=== PATIENT | female | born 1955 | race Hispanic/Latino ===

== ENCOUNTER → 2018-09-26 | Outpatient (CLI) | payer OTHER, MEDICARE | END | disposition home or self-care (01) | LOC: RAH 11:18 | PROVIDERS: ATTEND Internal Medicine | DX: Z12.31 Encounter for screening mammogram for malignant neoplasm of breast (principal) | CPT/HCPCS: 77067 ==

== ENCOUNTER 2020-04-07 13:50 | Inpatient (IN) | payer OTHER, MEDICARE ==
[~2020-04-07] VITALS: Ht 175.3 cm; Wt 122.3 kg
[2020-04-07] MEDS ORDERED: ALBUTEROL INHALER 90MCG/INH IH PRN (17:45)
[2020-04-07] MEDS ORDERED: PANTOPRAZOLE SODIUM 40 MG TABLET.DR PO SCH (17:45)
[2020-04-07] MEDS ORDERED: HYDRALAZINE HCL 20 MG/ML VIAL IV PRN (18:15)
[2020-04-07] MEDS ORDERED: PANTOPRAZOLE SODIUM 40 MG TABLET.DR ONE ×2 (19:57→20:54)
[2020-04-07] MEDS ORDERED: SODIUM CHLORIDE 0.9% 250 ML IV ONE (20:02)
[2020-04-07] MEDS ORDERED: FUROSEMIDE 10 MG/ML 2ML VIAL IV SCH (20:45)
[2020-04-07] MEDS: METOPROLOL TARTRATE 50 MG TAB PO SCH (20:51)
[2020-04-07] MEDS ORDERED: CLONIDINE HCL 0.2 MG TABLET PO ONE (20:53)
[2020-04-07] MEDS: FERROUS SULFATE 325 MG TABLET.DR PO SCH (20:58)
[2020-04-07] MEDS: CLONIDINE HCL 0.2 MG TABLET PO SCH (20:58)
[2020-04-07] MEDS: ATORVASTATIN CALCIUM 10 MG TABLET PO SCH (21:00)
[2020-04-07 22:10] VITALS: BP 166/79; PULSE 88; RESP 19; TEMP 97.9
[2020-04-07] MEDS ORDERED: ALPRAZOLAM 0.25 MG TABLET PO PRN (22:45)
--- NOTE | 2020-04-07 22:47 | NUR ---
full report given to floor nurse aware pt is running some blood and needs about an hr and a half or so to finish blood transfusion paperwok given to nurse as well pt denies sob , denies sob sugar 74 patient given a sandwich and an orange juice
[2020-04-07 23:49] VITALS: BP 136/81; PULSE 84; RESP 19; TEMP 98.1
[2020-04-08 04:07] VITALS: BP 157/79; PULSE 81; RESP 19; TEMP 97.8
--- NOTE | 2020-04-08 04:49 | NUR ---
PATIENT IS REFUSING TO PROVIDE A SAMPLE OF STOOL FOR OCCULT BLOOD BECAUSE SHE CLAIMS THAT "THEY TOOK ONE IN [facility]."
[2020-04-08] MEDS: CEFTRIAXONE SODIUM 1 GM IVP SCH ×2 (06:30→17:39)
--- NOTE | 2020-04-08 07:50 | NUR ---
COVID 19 covid swab to left nare tolerated well updated isolation precautions to enhanced data warehouse developer aware of pts status charge nurse Nicol observed covid swab procedure Addendum: 04/08/20 at 0800 by ABNER VALENTINE RN RN Amended: Links added.
[2020-04-08 07:59] VITALS: BP 159/75; PULSE 86; RESP 19; TEMP 98
[2020-04-08] MEDS ORDERED: EPOETIN ALFA 10,000 UNIT/ML VIAL SQ SCH ×2 (08:45→09:30)
[2020-04-08] MEDS: CLONIDINE HCL 0.2 MG TABLET PO SCH ×2 (08:54→14:15)
[2020-04-08] MEDS: DOXYCYCLINE HYCLATE 100 MG TABLET PO SCH ×2 (08:55→21:12)
[2020-04-08] MEDS: FERROUS SULFATE 325 MG TABLET.DR PO SCH ×3 (08:55→21:12)
[2020-04-08] MEDS: FOLIC ACID 1 MG TABLET PO SCH (08:55)
[2020-04-08] MEDS: LORATADINE 10 MG TABLET PO SCH (08:57)
[2020-04-08] MEDS: FUROSEMIDE 40 MG TABLET PO SCH ×2 (08:57→21:12)
[2020-04-08] MEDS: METOPROLOL TARTRATE 50 MG TAB PO SCH ×2 (08:57→14:18)
[2020-04-08] MEDS: GABAPENTIN 100 MG CAPSULE PO SCH (08:58)
[2020-04-08] MEDS: CLOPIDOGREL BISULFATE 75 MG TAB PO SCH (08:58)
[2020-04-08] MEDS: MONTELUKAST SODIUM 10 MG TAB PO SCH (08:59)
[2020-04-08] MEDS: PANTOPRAZOLE SODIUM 40 MG TABLET.DR PO SCH (08:59)
[2020-04-08] MEDS ORDERED: MONTELUKAST SODIUM 10 MG TAB PO SCH (09:00)
[2020-04-08] MEDS ORDERED: GABAPENTIN 300 MG CAPSULE PO SCH (09:00)
[2020-04-08] MEDS ORDERED: CLONIDINE HCL 0.2 MG TABLET PO SCH (09:00)
[2020-04-08] MEDS ORDERED: GLIPIZIDE 5 MG TABLET PO SCH (09:00)
[2020-04-08] MEDS ORDERED: SERTRALINE HCL 50 MG TABLET PO SCH (09:00)
[2020-04-08 11:20] VITALS: BP 141/75; PULSE 71; RESP 19; TEMP 97.6
[2020-04-08] MEDS: INSULIN HUMULIN R 100 UNIT/ML 3ML SQ SCH ×3 (11:30→21:00)
--- NOTE | 2020-04-08 11:34 | NUR ---
DCP CM met with pt discussed dc plans. Pt is independent prior to admission, lives at home with spouse. Denies any equipments/services. Feels safe to go back home, still drives, spouse able to assist with transportation and needs as necessary. DC plan to home once stable. CM to cont to follow up. Addendum: 04/08/20 at 1136 by DEANA PETERSON LVN CM Amended: Links added.
[2020-04-08] MEDS: FLUTICASONE/VILANTEROL 1 EACH BLST.W.DEV IH SCH (14:50)
[2020-04-08] MEDS: ALBUTEROL INHALER 90MCG/INH IH SCH ×2 (14:50→18:09)
[2020-04-08] MEDS ORDERED: IRON SUCROSE COMPLEX 300 MG in SODIUM CHLORIDE 0.9% 50 ML IV SCH ×2 (15:00→15:15)
[2020-04-08] MEDS ORDERED: PHARMACY COMMUNICATION MISC SCH (15:30)
[2020-04-08] MEDS ORDERED: COMPOUND IV MISC 1 EACH IVSOLN MISC PRN (15:30)
--- NOTE | 2020-04-08 16:05 | NUR ---
PT ARRIVED TO [facility] AT 1550. PT COMPLAINING OF SOB, NAUSEA, AND FEELING TIRED. VITAL SIGNS WERE CHECKED AND BLOOD GLUCOSE WAS 63. PT IMMEDIATELY GIVEN 2 JUICES AND INSTRUCTED TO TAKE THEM. AFTER 15 BLOOD GLUCOSE WAS ASSESS AND BG WAS 79. 1 MORE JUICE WAS GIVEN TO PT. PT STATED FEELING LESS NAUSEA AND SOB. PLACED ON 1L NC.
[2020-04-08 16:54] VITALS: BP 151/75; PULSE 75; RESP 20; TEMP 97.7
[2020-04-08] MEDS: BUDESONIDE 0.5 MG/2 ML INH IH SCH (18:00)
[2020-04-08] MEDS ORDERED: CLOPIDOGREL BISULFATE 75 MG TAB PO SCH (20:00)
[2020-04-08] MEDS ORDERED: FUROSEMIDE 40 MG TABLET PO SCH (20:00)
[2020-04-08] MEDS: SERTRALINE HCL 50 MG TABLET PO SCH (21:12)
[2020-04-08] MEDS: ATORVASTATIN CALCIUM 10 MG TABLET PO SCH (21:13)
[2020-04-08 21:14] VITALS: BP 163/94; PULSE 80; RESP 20; TEMP 98.1
--- NOTE | 2020-04-08 23:50 | NUR ---
SKIN TEAR,NEW IV PTS IV FROM [facility] REMOVED D/T BEING INFILTRATED. WHEN REMOVING TAPE, PT SUSTAINED 2 SKIN TEARS ON UPPER FOREARM. #1 SKIN TEAR MEASURES AT LENGTH 1 INCH BY WIDTH 1/2 INCH. #2 SKIN TEAR MEASURES AT LENGTH 1 1/2 INCHES BY 1/4 INCH. AREA CLEANED, PAT DRY, ADHESIVE GAUZE PLACED WITH SELF ADHERING ELASTIC BANDAGE. NO CAMERA WAS AVAILABLE TO OBTAIN PICTURES, ELI LANDRUM (CHARGE) AWARE. NEW IV STARTED IN LEFT HAND WITH A 24 GAUGE, INTACT, PATENT, SALINE FLUSHED AND SALINE LOCKED.
[2020-04-09 00:39] VITALS: BP 150/70; PULSE 86; RESP 20; TEMP 98.5
[2020-04-09 04:41] VITALS: BP 148/72; PULSE 95; RESP 20; TEMP 98.2
[2020-04-09] MEDS: BUDESONIDE 0.5 MG/2 ML INH IH SCH ×2 (06:00→18:00)
[2020-04-09] MEDS: CEFTRIAXONE SODIUM 1 GM IVP SCH ×2 (06:08→17:58)
--- NOTE | 2020-04-09 07:04 | NUR ---
BS BS 75 AT 0534 DID NOT TRANSMIT TO PATIENTS RECORD. IN ERROR IT TRANSMITTED TO ROOM 422.
[2020-04-09] MEDS: INSULIN HUMULIN R 100 UNIT/ML 3ML SQ SCH ×4 (07:30→20:51)
[2020-04-09] MEDS: FLUTICASONE/VILANTEROL 1 EACH BLST.W.DEV IH SCH (09:00)
[2020-04-09 09:14] VITALS: BP 142/86; PULSE 94; RESP 20; TEMP 98.4
[2020-04-09] MEDS: FERROUS SULFATE 325 MG TABLET.DR PO SCH ×2 (09:57→14:18)
[2020-04-09] MEDS: GABAPENTIN 100 MG CAPSULE PO SCH (09:57)
[2020-04-09] MEDS: MONTELUKAST SODIUM 10 MG TAB PO SCH (09:58)
[2020-04-09] MEDS: PANTOPRAZOLE SODIUM 40 MG TABLET.DR PO SCH (09:58)
[2020-04-09] MEDS: CLONIDINE HCL 0.2 MG TABLET PO SCH ×2 (09:58→20:50)
[2020-04-09] MEDS: METOPROLOL TARTRATE 50 MG TAB PO SCH ×2 (09:59→20:50)
[2020-04-09] MEDS: FOLIC ACID 1 MG TABLET PO SCH (09:59)
[2020-04-09] MEDS: CLOPIDOGREL BISULFATE 75 MG TAB PO SCH (09:59)
[2020-04-09] MEDS: LORATADINE 10 MG TABLET PO SCH (09:59)
[2020-04-09] MEDS: DOXYCYCLINE HYCLATE 100 MG TABLET PO SCH ×2 (09:59→20:50)
[2020-04-09] MEDS: FUROSEMIDE 40 MG TABLET PO SCH ×2 (10:00→20:51)
[2020-04-09 11:12] VITALS: BP 134/86; PULSE 87; RESP 20; TEMP 98.2
[2020-04-09] MEDS: ALBUTEROL INHALER 90MCG/INH IH SCH ×2 (12:00→18:00)
[2020-04-09] MEDS ORDERED: ACETAMINOPHEN-CODEINE 300/30MG TAB PO PRN (15:45)
[2020-04-09 15:58] VITALS: BP 125/68; PULSE 71; RESP 18; TEMP 98.6
[2020-04-09] MEDS ORDERED: IRON SUCROSE COMPLEX 300 MG in SODIUM CHLORIDE 0.9% 50 ML IV SCH (16:00)
--- NOTE | 2020-04-09 17:42 | NUR ---
PT ALERT AND ORIENTED, PLAN OF CARE DISCUSSED PT OFF THE FLOOR TO CT VIA BED ESCORTED BY SENIOR SCIENCE CONSULTANT. PT HAS 2L OF OXYGEN ON, DRY INTERMITTENT NON PRODUCTIVE COUGH, PT REPORTS LOW BACK DISCOMFORT. PT ENCOURAGED TO CHANGE POSITIONS FREQUENTLY. PT VERBALIZED UNDERSTANDING OF A SECOND UNIT OF BLOOD WILL BE TRANSFUSED PER MD. POSSESSIONS WITHIN REACH, FAMILY RECENTLY UPDATED BY NURSE ON PLAN OF CARE.
[2020-04-09 20:37] VITALS: BP 136/68; PULSE 81; RESP 19; TEMP 98.3
[2020-04-09] MEDS: SERTRALINE HCL 50 MG TABLET PO SCH (20:50)
[2020-04-09] MEDS: ATORVASTATIN CALCIUM 10 MG TABLET PO SCH (20:50)
[2020-04-10] VITALS (9 sets, daily range): BP systolic 119–148; BP diastolic 55–68; PULSE 68–80; RESP 18–24; TEMP 97–98.3
--- NOTE | 2020-04-10 03:45 | NUR ---
TRANSFER PT TRANSFERRED VIA BED, MAURA BENITEZ, RECEIVED PT. PTS BELONGINGS IN HER POSSESSION. PT CONTINUES WITH 2L OXYGEN VIA NC. DENIES PAIN OR DISCOMFORT. REPORT WAS GIVEN TO MAURA BEFORE TRANSFER VIA PHONE.
--- NOTE | 2020-04-10 03:50 | NUR ---
RECEIVED PT RECEIVED FROM ELI JUÁREZ, TRANSFERRED FROM [facility]. PT IS AAOX3, AMBULATORY WITH ASSIST. NOTED TO HAVE GBW AND SOB WITH EXERTION. PCP ASSISTED PT TO RESTROOM THEN BACK TO BED. PLACED COMFORTABLY IN BED WITH HOB ELEVATED. O2 AT 2LPM VIA NC PLACED. V/S MONITORED, STABLE. ORIENTED TO ROOM AND UNIT. IN FOR MORE CARE AND MANAGEMENT. Addendum: 04/10/20 at 4147 by MAURA SOLIS RN RN Amended: Links added.
--- NOTE | 2020-04-10 04:20 | NUR ---
ORDER ASKED ELI JUÁREZ, PREVIOUS NURSE OF PT IF PRBC WAS TRANSFUSED AND RN WAS UNAWARE OF ORDER. CALLED LAB TO VERIFY IF A UNIT WAS ISSUED AND THERE IS NONE.
--- NOTE | 2020-04-10 04:40 | NUR ---
RESOURCE RESOURCE NURSE, JOSEPH, MADE AWARE OF BLOOD TRANSFUSION ORDER MISSED. UPDATED ON PT'S STATUS.
--- NOTE | 2020-04-10 05:00 | NUR ---
PIV TRIED TO RE-INSERT PIV BUT FAILED. ASKED ELI DILL, TO TRY RE-INSERTION AND INSERTED G20 TO LEFT WRIST BUT PT CLAIMS IT IS PAINFUL AND HAS TO DISCONTINUED PIV WITH CATHETER. PIV TO LEFT HAND G24 IS OCCLUDED, DISCONTINUED WITH CATHETER INTACT. CALLED ELI GARCIA TO TRY RE-INSERTION.
[2020-04-10] MEDS: CEFTRIAXONE SODIUM 1 GM IVP SCH ×2 (05:08→18:11)
--- NOTE | 2020-04-10 05:20 | NUR ---
CONSENT PT MADE AWARE OF PENDING BLOOD TRANSFUSION, VERBALIZES UNDERSTANDING. CONSENT SIGNED BY PT AND WITNESSED BY DEVELOPMENT WRITER. RAINA TOPOGRAPHICAL ENGINEER ELECTRICIAN STATION ASSISTANT FOR HOSPITALIST, PAGED VIA ANSWERING SERVICE AND INFORMED OF PRBC NOT INFUSED BUT WILL BE INFUSED AFTER PIV IS INSERTED.
[2020-04-10] MEDS: BUDESONIDE 0.5 MG/2 ML INH IH SCH ×3 (06:00→19:05)
--- NOTE | 2020-04-10 06:00 | NUR ---
PIV CAT,RN WAS ABLE TO PLACE G20 TO LEFT HAND. WILL GET ONE UNIT OF PRBC TO TRANSFUSE.
[2020-04-10] MEDS: INSULIN HUMULIN R 100 UNIT/ML 3ML SQ SCH ×4 (06:10→21:00)
--- NOTE | 2020-04-10 06:20 | NUR ---
BLOOD CHECKED PRBC UNIT WITH ELI DILL. V/S MONITORED, STABLE. STARTED TRANSFUSION. INSTRUCTED PT TO REPORT ANY UNTOWARD S AND SX. WILL MONITOR CLOSELY.
--- NOTE | 2020-04-10 06:40 | NUR ---
RE-ASSESS PT TOLERATING BLOOD TRANSFUSION WELL. V/S MONITORED, STABLE. ENDORSING TO AM SHIFT FOR MORE CARE AND MANAGEMENT.
--- NOTE | 2020-04-10 08:00 | NUR ---
Dr Lucio paged for new consult for anemia ,spoke with Dr Lucio regarding pt history no active bleeding according to patient .Dr Lucio states that she can make an appointment as outpatient in 1 week at the office (pt had a colonoscopy and EGD in [address] Medina)
[2020-04-10] MEDS: CLONIDINE HCL 0.2 MG TABLET PO SCH ×2 (08:52→22:02)
[2020-04-10] MEDS: DOXYCYCLINE HYCLATE 100 MG TABLET PO SCH ×2 (08:53→22:02)
[2020-04-10] MEDS: FERROUS SULFATE 325 MG TABLET.DR PO SCH (08:54)
[2020-04-10] MEDS: FUROSEMIDE 40 MG TABLET PO SCH ×2 (08:59→22:02)
[2020-04-10] MEDS: FOLIC ACID 1 MG TABLET PO SCH (08:59)
[2020-04-10] MEDS: FLUTICASONE/VILANTEROL 1 EACH BLST.W.DEV IH SCH (09:00)
[2020-04-10] MEDS: CHOLECALCIFEROL 10 MCG PO SCH (09:00)
[2020-04-10] MEDS: ALBUTEROL INHALER 90MCG/INH IH SCH ×4 (09:00→16:39)
[2020-04-10] MEDS: LORATADINE 10 MG TABLET PO SCH (09:00)
[2020-04-10] MEDS ORDERED: FOLIC ACID 1 MG TABLET PO SCH (09:00)
[2020-04-10] MEDS: FOLIC ACID/VITAMIN B COMP W-C 1 CAP TAB PO SCH (09:00)
[2020-04-10] MEDS ORDERED: METOPROLOL TARTRATE 50 MG TAB PO SCH (09:00)
[2020-04-10] MEDS: METOPROLOL TARTRATE 50 MG TAB PO SCH ×2 (09:00→21:00)
[2020-04-10] MEDS: GABAPENTIN 100 MG CAPSULE PO SCH (09:01)
[2020-04-10] MEDS: MONTELUKAST SODIUM 10 MG TAB PO SCH (09:01)
[2020-04-10] MEDS: PANTOPRAZOLE SODIUM 40 MG TABLET.DR PO SCH (09:01)
[2020-04-10] MEDS: VITAMIN E 400 UNIT CAPSULE PO SCH (09:01)
[2020-04-10] MEDS: IRON SUCROSE COMPLEX 300 MG in SODIUM CHLORIDE 0.9% 50 ML IV SCH (09:07)
[2020-04-10] MEDS: ATORVASTATIN CALCIUM 10 MG TABLET PO SCH (22:01)
[2020-04-10] MEDS: SERTRALINE HCL 50 MG TABLET PO SCH (22:02)
[2020-04-11] VITALS (10 sets, daily range): BP systolic 130–171; BP diastolic 62–79; PULSE 63–82; RESP 18–24; TEMP 96.1–98.5
[2020-04-11] MEDS: ALBUTEROL INHALER 90MCG/INH IH SCH ×4 (01:05→18:00)
[2020-04-11] MEDS: CEFTRIAXONE SODIUM 1 GM IVP SCH ×2 (06:01→20:51)
[2020-04-11] MEDS: INSULIN HUMULIN R 100 UNIT/ML 3ML SQ SCH ×4 (06:41→20:49)
[2020-04-11] MEDS: BUDESONIDE 0.5 MG/2 ML INH IH SCH ×2 (06:41→18:26)
[2020-04-11] MEDS: IRON SUCROSE COMPLEX 300 MG in SODIUM CHLORIDE 0.9% 50 ML IV SCH (08:00)
[2020-04-11] MEDS: FLUTICASONE/VILANTEROL 1 EACH BLST.W.DEV IH SCH (09:00)
[2020-04-11] MEDS: CHOLECALCIFEROL 10 MCG PO SCH (09:00)
[2020-04-11] MEDS: LORATADINE 10 MG TABLET PO SCH (09:08)
[2020-04-11] MEDS: FERROUS SULFATE 325 MG TABLET.DR PO SCH (09:08)
[2020-04-11] MEDS: PANTOPRAZOLE SODIUM 40 MG TABLET.DR PO SCH (09:08)
[2020-04-11] MEDS: FOLIC ACID 1 MG TABLET PO SCH (09:09)
[2020-04-11] MEDS: FUROSEMIDE 40 MG TABLET PO SCH ×2 (09:09→20:53)
[2020-04-11] MEDS: DOXYCYCLINE HYCLATE 100 MG TABLET PO SCH ×2 (09:10→20:51)
[2020-04-11] MEDS: MONTELUKAST SODIUM 10 MG TAB PO SCH (09:10)
[2020-04-11] MEDS: VITAMIN E 400 UNIT CAPSULE PO SCH (09:10)
[2020-04-11] MEDS: FOLIC ACID/VITAMIN B COMP W-C 1 CAP TAB PO SCH (09:10)
[2020-04-11] MEDS: GABAPENTIN 100 MG CAPSULE PO SCH (09:10)
[2020-04-11] MEDS: CLONIDINE HCL 0.2 MG TABLET PO SCH ×2 (09:10→20:52)
[2020-04-11] MEDS: METOPROLOL TARTRATE 50 MG TAB PO SCH (09:10)
[2020-04-11] MEDS: ACETAMINOPHEN-CODEINE 300/30MG TAB PO PRN (09:11)
[2020-04-11] MEDS: SERTRALINE HCL 50 MG TABLET PO SCH (20:51)
[2020-04-11] MEDS: ATORVASTATIN CALCIUM 10 MG TABLET PO SCH (20:53)
[2020-04-12] VITALS (10 sets, daily range): BP systolic 147–177; BP diastolic 64–77; PULSE 63–79; RESP 18–28; TEMP 97.5–98.1
[2020-04-12] MEDS: CEFTRIAXONE SODIUM 1 GM IVP SCH ×2 (04:58→20:24)
[2020-04-12] MEDS: INSULIN HUMULIN R 100 UNIT/ML 3ML SQ SCH ×4 (05:15→20:38)
--- NOTE | 2020-04-12 08:00 | NUR ---
AM SHIFT ASSESSMENT
--- NOTE | 2020-04-12 08:00 | NUR ---
NO SYMPTOMS Addendum: 04/12/20 at 1626 by RADHA MORRELL RN RN Amended: Links added.
[2020-04-12] MEDS: BUDESONIDE 0.5 MG/2 ML INH IH SCH ×2 (08:54→18:55)
[2020-04-12] MEDS: FLUTICASONE/VILANTEROL 1 EACH BLST.W.DEV IH SCH (09:00)
[2020-04-12] MEDS: CHOLECALCIFEROL 10 MCG PO SCH (09:00)
--- NOTE | 2020-04-12 09:00 | NUR ---
ASST. TO BATHROOM.
[2020-04-12] MEDS: IRON SUCROSE COMPLEX 400 MG in SODIUM CHLORIDE 0.9% 250 ML IV SCH ×2 (09:40→18:16)
[2020-04-12] MEDS: PANTOPRAZOLE SODIUM 40 MG TABLET.DR PO SCH (09:41)
[2020-04-12] MEDS: MONTELUKAST SODIUM 10 MG TAB PO SCH (09:41)
[2020-04-12] MEDS: METOPROLOL TARTRATE 50 MG TAB PO SCH (09:41)
[2020-04-12] MEDS: VITAMIN E 400 UNIT CAPSULE PO SCH (09:41)
[2020-04-12] MEDS: LORATADINE 10 MG TABLET PO SCH (09:42)
[2020-04-12] MEDS: DOXYCYCLINE HYCLATE 100 MG TABLET PO SCH ×2 (09:42→20:26)
[2020-04-12] MEDS: FOLIC ACID 1 MG TABLET PO SCH (09:42)
[2020-04-12] MEDS: FOLIC ACID/VITAMIN B COMP W-C 1 CAP TAB PO SCH (09:42)
[2020-04-12] MEDS: FERROUS SULFATE 325 MG TABLET.DR PO SCH (09:42)
[2020-04-12] MEDS: GABAPENTIN 100 MG CAPSULE PO SCH (09:42)
[2020-04-12] MEDS: CLONIDINE HCL 0.2 MG TABLET PO SCH ×2 (09:43→20:25)
[2020-04-12] MEDS: FUROSEMIDE 40 MG TABLET PO SCH ×2 (09:44→20:25)
[2020-04-12] MEDS: ENOXAPARIN SODIUM 40 MG/0.4 ML SYRINGE SQ SCH (09:45)
[2020-04-12] MEDS: ALBUTEROL INHALER 90MCG/INH IH SCH ×3 (09:46→18:16)
--- NOTE | 2020-04-12 17:00 | NUR ---
GENERALIZED EDEMA NOTED ESPECIALLY TO LOWER LEGS , ON PO LASIX AND C/O OF HAVING TO GO TO BR. TOO OFTEN.
[2020-04-12] MEDS ORDERED: SODIUM CHLORIDE 0.9% 100 ML IV ONE (18:21)
--- NOTE | 2020-04-12 19:00 | NUR ---
22G IV STARTED ON RT. HAND, ROCEPHIN INFUSING.
[2020-04-12] MEDS: ATORVASTATIN CALCIUM 10 MG TABLET PO SCH (20:25)
[2020-04-12] MEDS: SERTRALINE HCL 50 MG TABLET PO SCH (20:25)
[2020-04-13] VITALS: BP 166/74; PULSE 83; RESP 24; TEMP 97.9
[2020-04-13] MEDS: ACETAMINOPHEN-CODEINE 300/30MG TAB PO PRN (03:48)
[2020-04-13 04:00] VITALS: BP 166/74; PULSE 84; RESP 22; TEMP 98.1
--- NOTE | 2020-04-13 04:16 | NUR ---
patient refuses hydralazine iv and "would rather take lopressor and clonidine in the morning"
--- NOTE | 2020-04-13 04:35 | NUR ---
patient refuses to take rocephin iv because she claims that it orr her. she also refuses to sign the refusal to treatment form.
[2020-04-13] MEDS: CEFTRIAXONE SODIUM 1 GM IVP SCH (04:36)
[2020-04-13] MEDS: INSULIN HUMULIN R 100 UNIT/ML 3ML SQ SCH ×2 (04:37→11:30)
[2020-04-13] MEDS: ALBUTEROL INHALER 90MCG/INH IH SCH ×2 (05:56)
[2020-04-13] MEDS: BUDESONIDE 0.5 MG/2 ML INH IH SCH (06:00)
[2020-04-13 08:07] VITALS: BP 171/80; PULSE 95; RESP 20; TEMP 97.9
[2020-04-13] MEDS: CHOLECALCIFEROL 10 MCG PO SCH (09:00)
[2020-04-13] MEDS: FLUTICASONE/VILANTEROL 1 EACH BLST.W.DEV IH SCH (09:00)
[2020-04-13] MEDS: CLONIDINE HCL 0.2 MG TABLET PO SCH (10:45)
[2020-04-13] MEDS: FERROUS SULFATE 325 MG TABLET.DR PO SCH (10:45)
[2020-04-13] MEDS: DOXYCYCLINE HYCLATE 100 MG TABLET PO SCH (10:45)
[2020-04-13] MEDS: FOLIC ACID/VITAMIN B COMP W-C 1 CAP TAB PO SCH (10:45)
[2020-04-13] MEDS: VITAMIN E 400 UNIT CAPSULE PO SCH (10:46)
[2020-04-13] MEDS: GABAPENTIN 100 MG CAPSULE PO SCH (10:46)
[2020-04-13] MEDS: MONTELUKAST SODIUM 10 MG TAB PO SCH (10:46)
[2020-04-13] MEDS: PANTOPRAZOLE SODIUM 40 MG TABLET.DR PO SCH (10:46)
[2020-04-13] MEDS: ENOXAPARIN SODIUM 40 MG/0.4 ML SYRINGE SQ SCH (10:47)
[2020-04-13] MEDS: METOPROLOL TARTRATE 50 MG TAB PO SCH (10:48)
[2020-04-13] MEDS: LORATADINE 10 MG TABLET PO SCH (10:48)
[2020-04-13] MEDS: FOLIC ACID 1 MG TABLET PO SCH (10:49)
[2020-04-13] MEDS: FUROSEMIDE 40 MG TABLET PO SCH (10:49)
[2020-04-13 11:18] VITALS: BP 179/80; PULSE 89; RESP 20; TEMP 97.9
== END 2020-04-13 17:00 | disposition home or self-care (01) | DRG 683 ==
LOC: EDH 13:50 → EDHIP 17:34 → 3AH 22:15 → 4DH 04-08 16:29 → 3BH 04-10 03:44
PROVIDERS: ADMIT Internal Medicine; ATTEND Internal Medicine
PROC: 30233N1 Transfusion of Nonautologous Red Blood Cells into Peripheral Vein, Percutaneous Approach (ICD-10-PCS; principal; 2020-04-07)
DX: I12.9 Hypertensive chronic kidney disease with stage 1 through stage 4 chronic kidney disease, or unspecified chronic kidney disease (principal); M48.54XA Collapsed vertebra, not elsewhere classified, thoracic region, initial encounter for fracture; I31.3 Pericardial effusion (noninflammatory); N18.4 Chronic kidney disease, stage 4 (severe); D50.0 Iron deficiency anemia secondary to blood loss (chronic); E11.22 Type 2 diabetes mellitus with diabetic chronic kidney disease; J45.909 Unspecified asthma, uncomplicated; I25.10 Atherosclerotic heart disease of native coronary artery without angina pectoris; E66.9 Obesity, unspecified; E78.5 Hyperlipidemia, unspecified; R19.5 Other fecal abnormalities; R79.89 Other specified abnormal findings of blood chemistry; Z95.5 Presence of coronary angioplasty implant and graft; Z85.048 Personal history of other malignant neoplasm of rectum, rectosigmoid junction, and anus; Z82.5 Family history of asthma and other chronic lower respiratory diseases; Z82.49 Family history of ischemic heart disease and other diseases of the circulatory system; Z68.39 Body mass index [BMI] 39.0-39.9, adult; Z82.61 Family history of arthritis; Z79.899 Other long term (current) drug therapy; Z90.49 Acquired absence of other specified parts of digestive tract; Z03.818 Encounter for observation for suspected exposure to other biological agents ruled out

== ENCOUNTER 2020-05-25 16:47 | Observation (INO) | payer OTHER, MEDICARE ==
[~2020-05-25] VITALS: Ht 175.3 cm; Wt 95.7 kg
[~2020-05-25 16:47] MED LIST: ALPR0.255 PO; ATOR10TA69 PO; BUDE10.2 IH; CLON0.2T PO; FERR325T22 PO; FOLI10PO5 MC; FOLI1TAB61 PO; FURO40TA5 PO; GLIP5TAB11 PO; LORA10TA7 PO; METO100T14 PO; MONT10TA26 PO; SERT50TA12 PO; VITA400C73 PO; vento
[2020-05-25 17:40] LABS: BASOPHILS % (AUTO) 0.4 % (0.0-5.0); EOSINOPHILS % (AUTO) 5.3 % (0.0-8.0); LYMPHOCYTES % (AUTO) 10.1 % (21.0-51.0); MEAN CORPUSCULAR HEMOGLOBIN 30.3 pg (27.0-33.0); MEAN CORPUSCULAR HGB CONC 29.5 g/dL (32.0-36.0); MEAN CORPUSCULAR VOLUME 102.7 fL (79-99); MONOCYTES % (AUTO) 8.2 % (3.0-13.0); NEUTROPHILS % (AUTO) 75.5 % (40.0-77.0); PLATELET COUNT (AUTO) 182 K/uL (130-400); RED BLOOD CELL COUNT(AUTO) 1.88 MIL/uL (4.00-5.50); WHITE BLOOD COUNT (AUTO) 5.5 K/uL (4.8-10.8)
[2020-05-25 17:50] LABS: INR 0.88 (0.85-1.15); PROTHROMBIN TIME 9.6 SEC (9.6-11.6)
[2020-05-25 17:52] LABS: POTASSIUM 4.9 mmol/L (3.5-5.1)
[2020-05-25 17:53] LABS: HEMATOCRIT 19.3 % (36-48)
[2020-05-25 17:54] LABS: RETICULOCYTE % (AUTO) 11.07 % (0.42-2.23)
[2020-05-25 17:58] LABS: ALBUMIN 2.1 g/dL (3.5-5.0); BILIRUBIN,TOTAL 0.2 mg/dL (0.2-1.0); PARTIAL THROMBOPLASTIN TIME > 120.0 SEC (26.3-35.5); TOTAL PROTEIN, SERUM 4.9 g/dL (6.0-8.3)
[2020-05-25 18:09] LABS: % IRON SATURATION 51.8 % (22-44)
[2020-05-25 18:21] LABS: APPEARANCE,URINE Clear (CLEAR); BILIRUBIN,URINE Negative (NEGATIVE); COLOR,URINE Yellow (YELLOW); GLUCOSE, URINE (UA) Negative (NEGATIVE); KETONES,URINE Negative (NEGATIVE); LEUKOCYTE ESTERASE ,URINE Trace (NEGATIVE); NITRATE,URINE Negative (NEGATIVE); OCCULT BLOOD,URINE Moderate (NEGATIVE); PH,URINE 6.5 (5.0-8.0); PROTEIN,URINE >=1000 mg/dL (NEGATIVE); UROBILINOGEN,URINE 0.2 mg/dL (0.2-1.0)
[2020-05-25 18:35] LABS: BACTERIA,URINE Few /HPF (None Seen)
[2020-05-25 18:36] LABS: MUCUS,URINE Rare LPF (None Seen); SQUAMOUS EPITHELIAL CELL,UR Few /HPF (0-2)
[2020-05-25] MEDS ORDERED: ONDANSETRON HCL 4 MG/2 ML VIAL IVP PRN (20:00)
[2020-05-25] MEDS ORDERED: ACETAMINOPHEN 325 MG TAB PO PRN (20:00)
[2020-05-25] MEDS ORDERED: HYDRALAZINE HCL 20 MG/ML VIAL IV PRN (21:45)
[2020-05-25 23:25] VITALS: BP 183/80
--- NOTE | 2020-05-25 23:25 | NUR ---
ADMISSION NOTE: Admitted to floor via stretcher. AOX4, but looking weak. Positioned in bed according to her comfort. VS checked and recorded. Assessment done.( See CPOE flow chart for Full Physical Assessment) Per ER staff report, 1unit of PRBC already given. PIV site #22g, to left upper chest near axillary fold checked. Terminated as it was tender to touched and infiltrated. Bruising noted to surrounding area. PIV site reinsertion done to Left AC #20 gauge. Tolerated. Oriented to room and used of call light. Policies and procedures explained. Pt insisted to get to urinate in the restroom eventhough the press writer explained to her that she will be having SOB. Was assisted to go to the restroom and experienced SOB as soon as she sat in her bed. O2 at 1.5 LPM attached via NC for comfort and was positioned in bed comfortably. Bedside commode provided. Monitored and observed for any unusual changes. No apparent distress noted. Plan of care initiated. Care provided.
--- NOTE | 2020-05-26 00:15 | NUR ---
2nd unit of PRBC administered: Administered per hospital protocol. Checked with 2 RN's at bedside. Completed with out any s/s of Transfusion reaction. Tolerated well.
[2020-05-26] MEDS ORDERED: ZINC50TA71 PO (00:45)
[2020-05-26] MEDS ORDERED: CALC-20 PO (00:45)
[2020-05-26] MEDS ORDERED: VITA400C19 PO (00:45)
[2020-05-26] MEDS ORDERED: AMIN250S4 PO (01:12)
[2020-05-26] MEDS ORDERED: OMEG-75 PO (01:12)
[2020-05-26] MEDS ORDERED: LOTE55OS OU (01:12)
[2020-05-26] MEDS ORDERED: ASCO500T20 PO (01:12)
[2020-05-26] MEDS ORDERED: MAGN250T10 PO (01:12)
[2020-05-26] MEDS ORDERED: GABA300C PO (01:12)
[2020-05-26] MEDS ORDERED: CLOP75TA32 PO (01:12)
[2020-05-26] MEDS ORDERED: LINA5TAB PO (01:12)
[2020-05-26] MEDS ORDERED: ATOR10TA69 PO (01:12)
[2020-05-26 04:00] VITALS: BP 151/78
[2020-05-26] MEDS ORDERED: ZINC50TA64 PO (04:31)
[2020-05-26] MEDS ORDERED: CLON0.2T PO (04:35)
[2020-05-26] MEDS ORDERED: CLONIDINE HCL 0.2 MG TABLET PO PRN (04:45)
[2020-05-26] MEDS ORDERED: ALPRAZOLAM 0.25 MG TABLET PO PRN (04:45)
[2020-05-26 05:42] LABS: HEMATOCRIT 21.7 % (36-48); RED BLOOD CELL COUNT(AUTO) 2.17 MIL/uL (4.00-5.50); RED CELL DISTRIBUTION WIDTH 20.5 % (11.0-15.5); WHITE BLOOD COUNT (AUTO) 6.6 K/uL (4.8-10.8)
[2020-05-26 06:09] LABS: CREATININE 1.9 mg/dL (0.5-1.5); POTASSIUM 4.7 mmol/L (3.5-5.1)
[2020-05-26] MEDS: ALBUTEROL SULFATE 0.083% 2.5 MG/3 ML INH IH SCH ×3 (07:05→19:06)
[2020-05-26] MEDS: BUDESONIDE 0.5 MG/2 ML INH IH SCH ×2 (07:05→19:06)
[2020-05-26 08:05] VITALS: BP 133/60
[2020-05-26] MEDS ORDERED: SUB PER P&T FOR ASTHMA OR COPD RECOMMENDATION IH SCH (09:00)
[2020-05-26] MEDS: MAGNESIUM OXIDE 400 MG TABLET PO SCH (09:00)
[2020-05-26] MEDS ORDERED: AMINOCAPROIC ACID PO SCH (09:00)
[2020-05-26] MEDS: FERROUS SULFATE 325 MG TABLET.DR PO SCH (09:01)
[2020-05-26] MEDS: FAMOTIDINE 20MG TAB 20 MG TAB PO SCH (09:01)
[2020-05-26] MEDS: FISH OIL 1000 MG/CAP PO SCH ×2 (09:01→20:34)
[2020-05-26] MEDS: FUROSEMIDE 40 MG TABLET PO SCH ×2 (09:01→20:34)
[2020-05-26] MEDS: ASCORBIC ACID 500 MG TAB PO SCH ×2 (09:02→20:34)
[2020-05-26] MEDS: VITAMIN E 400 UNIT CAPSULE PO SCH (09:02)
[2020-05-26] MEDS: CALCIUM 600 + VITAMIN D 400 TABLET PO SCH ×2 (09:02→20:33)
[2020-05-26] MEDS: MONTELUKAST SODIUM 10 MG TAB PO SCH (09:02)
[2020-05-26] MEDS: FOLIC ACID 1 MG TABLET PO SCH (09:02)
[2020-05-26] MEDS: METOPROLOL TARTRATE 50 MG TAB PO SCH (09:02)
[2020-05-26] MEDS: LORATADINE 10 MG TABLET PO SCH (09:02)
[2020-05-26] MEDS: LINAGLIPTIN 5 MG TABLET PO SCH (09:02)
[2020-05-26] MEDS: GABAPENTIN 300 MG CAPSULE PO SCH (09:02)
[2020-05-26] MEDS: LOTEPREDNOL ETABONATE OU SCH (09:04)
[2020-05-26 11:40] VITALS: BP 153/81
--- NOTE | 2020-05-26 12:28 | NUR ---
[id number] patient signed IM Letter, I faxed IM Letter to [phone] and placed in chart under consent tab.
[2020-05-26] MEDS: ZINC SULFATE 220 CAPSULE PO SCH (12:56)
--- NOTE | 2020-05-26 14:15 | NUR ---
1 UNIT RBCS STARTED
[2020-05-26 15:52] VITALS: BP 142/68
--- NOTE | 2020-05-26 16:03 | NUR ---
SPOUSE CONTACTED FOR DISCHARGE PLANNING SPOUSE CHAD CONTACTED BY ESTELLE BENITEZ FOR CM ASSESSMENT; SPOUSE STATES PATIENT INDEPENDENT, NO DME, HOME SAFE AND ACCESSIBLE, DC MARTINA CM TO FOLLOW Addendum: 05/27/20 at 1937 by ELICEO JONES RN CM Amended: Links added.
[2020-05-26] MEDS ORDERED: SODIUM CHLORIDE 0.9% 500ML 500 ML IV ONE (16:59)
--- NOTE | 2020-05-26 17:20 | NUR ---
NO ALLERGIC REACTION AFTER 5 MIN
--- NOTE | 2020-05-26 17:35 | NUR ---
NO REACTION AFTER 15 MIN WITH RBCS
[2020-05-26 19:57] VITALS: BP 138/62
[2020-05-26] MEDS: SERTRALINE HCL 50 MG TABLET PO SCH (20:34)
[2020-05-26] MEDS: ATORVASTATIN CALCIUM 10 MG TABLET PO SCH (20:34)
[2020-05-26] MEDS ORDERED: ZOLPIDEM TARTRATE 5 MG TAB PO PRN (21:30)
[2020-05-26 22:38] LABS: HEMATOCRIT 28.5 % (36-48)
[2020-05-27] VITALS: BP 153/84
[2020-05-27] MEDS: ALBUTEROL SULFATE 0.083% 2.5 MG/3 ML INH IH SCH ×4 (00:22→18:37)
[2020-05-27 04:00] VITALS: BP 145/71
[2020-05-27 07:12] LABS: BASOPHILS % (AUTO) 0.6 % (0.0-5.0); EOSINOPHILS % (AUTO) 4.8 % (0.0-8.0); HEMATOCRIT 25.8 % (36-48); MEAN CORPUSCULAR HEMOGLOBIN 29.3 pg (27.0-33.0); MEAN CORPUSCULAR HGB CONC 29.8 g/dL (32.0-36.0); MEAN CORPUSCULAR VOLUME 98.1 fL (79-99); MONOCYTES % (AUTO) 8.7 % (3.0-13.0); NEUTROPHILS % (AUTO) 75.4 % (40.0-77.0); PLATELET COUNT (AUTO) 165 K/uL (130-400); RED BLOOD CELL COUNT(AUTO) 2.63 MIL/uL (4.00-5.50); RED CELL DISTRIBUTION WIDTH 20.2 % (11.0-15.5); WHITE BLOOD COUNT (AUTO) 6.3 K/uL (4.8-10.8)
[2020-05-27 07:28] LABS: ALBUMIN 2.2 g/dL (3.5-5.0); BILIRUBIN,TOTAL 0.3 mg/dL (0.2-1.0); CREATININE 2.1 mg/dL (0.5-1.5); MAGNESIUM 2.7 mg/dL (1.80-2.40); PHOSPHORUS 4.8 mg/dL (2.5-4.9); POTASSIUM 4.3 mmol/L (3.5-5.1)
[2020-05-27] MEDS: BUDESONIDE 0.5 MG/2 ML INH IH SCH ×2 (07:49→18:37)
[2020-05-27 08:38] VITALS: BP 176/74
[2020-05-27] MEDS: LOTEPREDNOL ETABONATE OU SCH ×2 (09:00→20:34)
[2020-05-27] MEDS: FAMOTIDINE 20MG TAB 20 MG TAB PO SCH (10:07)
[2020-05-27] MEDS: VITAMIN E 400 UNIT CAPSULE PO SCH (10:08)
[2020-05-27] MEDS: FISH OIL 1000 MG/CAP PO SCH ×2 (10:09→20:32)
[2020-05-27] MEDS: MAGNESIUM OXIDE 400 MG TABLET PO SCH (10:09)
[2020-05-27] MEDS: LINAGLIPTIN 5 MG TABLET PO SCH (10:09)
[2020-05-27] MEDS: FERROUS SULFATE 325 MG TABLET.DR PO SCH (10:10)
[2020-05-27] MEDS: LORATADINE 10 MG TABLET PO SCH (10:10)
[2020-05-27] MEDS: FOLIC ACID 1 MG TABLET PO SCH (10:10)
[2020-05-27] MEDS: MONTELUKAST SODIUM 10 MG TAB PO SCH (10:10)
[2020-05-27] MEDS: GABAPENTIN 300 MG CAPSULE PO SCH (10:10)
[2020-05-27] MEDS: CALCIUM 600 + VITAMIN D 400 TABLET PO SCH ×2 (10:10→20:31)
[2020-05-27] MEDS: ASCORBIC ACID 500 MG TAB PO SCH ×2 (10:10→20:31)
[2020-05-27] MEDS: FUROSEMIDE 40 MG TABLET PO SCH ×2 (10:10→20:32)
[2020-05-27] MEDS: METOPROLOL TARTRATE 50 MG TAB PO SCH (10:11)
[2020-05-27 11:38] VITALS: BP 168/86
[2020-05-27] MEDS: ZINC SULFATE 220 CAPSULE PO SCH (13:14)
[2020-05-27 16:22] VITALS: BP 141/74
[2020-05-27 19:50] VITALS: BP 149/74
[2020-05-27] MEDS: SERTRALINE HCL 50 MG TABLET PO SCH (20:32)
[2020-05-27] MEDS: ATORVASTATIN CALCIUM 10 MG TABLET PO SCH (20:32)
[2020-05-27] MEDS ORDERED: AMINOCAPROIC ACID 500 MG TABLET PO SCH (21:00)
--- NOTE | 2020-05-27 21:45 | NUR ---
DISCHARGE-DISCHARGE ORDERS RECEIVED, DC INSTRUCTIONS GIVEN TO PATIENT, NO NEW PRESCRIPTIONS, 20GA PIV TO LAC REMOVED. PATIENT DENIES DISCOMFORT, NO ACUTE DISTRESS NOTED. PATIENT'S SPOUSE HERE TO PICK HER UP AND PATIENT WHEELED DOWN TO ER.
== END 2020-05-27 21:50 | disposition home or self-care (01) ==
LOC: EDH 16:47 → OBSVTOIN 18:41 → INTOOBSV 18:41 → EDHIP 18:41 → UNDOADMOB 18:41 → EDHIP 21:19 → 3CH 21:19
PROVIDERS: ADMIT Internal Medicine; ATTEND Internal Medicine
DX: D75.89 Other specified diseases of blood and blood-forming organs (principal); D64.89 Other specified anemias; E11.9 Type 2 diabetes mellitus without complications; I10 Essential (primary) hypertension; Z85.038 Personal history of other malignant neoplasm of large intestine; Z79.84 Long term (current) use of oral hypoglycemic drugs; Z79.899 Other long term (current) drug therapy; Z86.73 Personal history of transient ischemic attack (TIA), and cerebral infarction without residual deficits; Z85.42 Personal history of malignant neoplasm of other parts of uterus; Z79.02 Long term (current) use of antithrombotics/antiplatelets; Z90.710 Acquired absence of both cervix and uterus; Z90.49 Acquired absence of other specified parts of digestive tract; Z87.442 Personal history of urinary calculi
CPT/HCPCS: 36415 ×3; 36430; 71045; 80048; 80053 ×2; 81001; 82270; 82550; 82607; 82728; 82948 ×8; 83735; 84100; 84484; 85014; 85018; 85025 ×2; 85027; 85610; 85730; 86850; 86900; 86901; 86923 ×3; 93005; 94640 ×11; 94664; 96374; 99285; G0378 ×7; J7040; P9016 ×3

== ENCOUNTER 2020-09-08 20:33 | Inpatient (IN) | payer OTHER, MEDICARE ==
[~2020-09-08] VITALS: Ht 175.3 cm; Wt 108.0 kg
[~2020-09-08 20:33] MED LIST changes: +AMIN250S4 PO; +ASCO500T20 PO; +CALC-1219 PO; +CLOP75TA32 PO; -FOLI1TAB61 PO; +GABA300C PO; -GLIP5TAB11 PO; +LINA5TAB PO; +LOTE55OS OU; +MAGN250T10 PO; -MONT10TA26 PO; +MONT10TA96 PO; +OMEG-75 PO; +ZINC50TA64 PO; -vento
[2020-09-08 21:05] LABS: BASOPHILS % (AUTO) 0.7 % (0.0-5.0); EOSINOPHILS % (AUTO) 8.7 % (0.0-8.0); HEMATOCRIT 22.1 % (36-48); LYMPHOCYTES % (AUTO) 15.2 % (21.0-51.0); MEAN CORPUSCULAR HEMOGLOBIN 30.1 pg (27.0-33.0); MEAN CORPUSCULAR HGB CONC 29.9 g/dL (32.0-36.0); MEAN CORPUSCULAR VOLUME 100.9 fL (79-99); MONOCYTES % (AUTO) 7.7 % (3.0-13.0); PLATELET COUNT (AUTO) 234 K/uL (130-400); RED BLOOD CELL COUNT(AUTO) 2.19 MIL/uL (4.00-5.50); WHITE BLOOD COUNT (AUTO) 7.6 K/uL (4.8-10.8)
[2020-09-08 21:20] LABS: INR 0.96 (0.85-1.15); PARTIAL THROMBOPLASTIN TIME 26.9 SEC (26.3-35.5); PROTHROMBIN TIME 10.4 SEC (9.6-11.6)
[2020-09-08 21:25] LABS: CREATININE 1.9 mg/dL (0.5-1.5); POTASSIUM 4.9 mmol/L (3.5-5.1)
[2020-09-08 21:30] LABS: ALBUMIN 1.3 g/dL (3.5-5.0); BILIRUBIN,TOTAL 0.2 mg/dL (0.2-1.0); TOTAL PROTEIN, SERUM 4.5 g/dL (6.0-8.3)
[2020-09-08] MEDS ORDERED: CLINDAMYCIN 900 MG/D5% WATER 50 ML IV ONE (22:56)
[2020-09-08] MEDS ORDERED: ACETAMINOPHEN 325 MG TAB PO PRN (23:30)
[2020-09-08] MEDS ORDERED: GLUCAGON 1MG KIT 1 MG ML IM PRN (23:30)
[2020-09-09] MEDS ORDERED: SODIUM CHLORIDE 0.9% 250 ML IV ONE (00:15)
[2020-09-09] MEDS ORDERED: CLINDAMYCIN 900 MG/D5% WATER 50 ML IV ONE ×2 (04:59→23:59)
[2020-09-09 08:40] LABS: BASOPHILS % (AUTO) 0.9 % (0.0-5.0); EOSINOPHILS % (AUTO) 10.6 % (0.0-8.0); HEMATOCRIT 32.7 % (36-48); LYMPHOCYTES % (AUTO) 18.1 % (21.0-51.0); MEAN CORPUSCULAR HEMOGLOBIN 28.9 pg (27.0-33.0); MEAN CORPUSCULAR HGB CONC 31.8 g/dL (32.0-36.0); MEAN CORPUSCULAR VOLUME 90.8 fL (79-99); MONOCYTES % (AUTO) 8.1 % (3.0-13.0); NEUTROPHILS % (AUTO) 61.8 % (40.0-77.0); PLATELET COUNT (AUTO) 220 K/uL (130-400); WHITE BLOOD COUNT (AUTO) 7.8 K/uL (4.8-10.8)
[2020-09-09 08:50] LABS: CREATININE 1.8 mg/dL (0.5-1.5); POTASSIUM 5.5 mmol/L (3.5-5.1)
[2020-09-09 10:30] LABS: % IRON SATURATION 31.5 % (22-44)
[2020-09-09] MEDS ORDERED: FAMOTIDINE 20MG TAB 20 MG TAB ONE (10:35)
[2020-09-09] MEDS ORDERED: LACTATED RINGERS 1000ML 1,000 ML IV ONE (13:50)
[2020-09-09] MEDS ORDERED: CLINDAMYCIN 600 MG/D5% WATER 50 ML IV ONE (17:26)
[2020-09-10 05:45] LABS: BASOPHILS % (AUTO) 0.9 % (0.0-5.0); EOSINOPHILS % (AUTO) 7.2 % (0.0-8.0); HEMATOCRIT 31.2 % (36-48); LYMPHOCYTES % (AUTO) 16.9 % (21.0-51.0); MEAN CORPUSCULAR HEMOGLOBIN 28.4 pg (27.0-33.0); MEAN CORPUSCULAR HGB CONC 31.1 g/dL (32.0-36.0); MEAN CORPUSCULAR VOLUME 91.5 fL (79-99); MONOCYTES % (AUTO) 8.8 % (3.0-13.0); NEUTROPHILS % (AUTO) 65.8 % (40.0-77.0); PLATELET COUNT (AUTO) 244 K/uL (130-400); RED BLOOD CELL COUNT(AUTO) 3.41 MIL/uL (4.00-5.50); RED CELL DISTRIBUTION WIDTH 19.9 % (11.0-15.5); WHITE BLOOD COUNT (AUTO) 6.9 K/uL (4.8-10.8)
[2020-09-10 06:03] LABS: CREATININE 1.8 mg/dL (0.5-1.5); MAGNESIUM 3.1 mg/dL (1.80-2.40); POTASSIUM 5.3 mmol/L (3.5-5.1)
[2020-09-10] MEDS ORDERED: FAMOTIDINE 20MG TAB 20 MG TAB ONE (07:27)
[2020-09-10] MEDS ORDERED: CLINDAMYCIN 600 MG/D5% WATER 50 ML IV ONE (07:27)
[2020-09-10] MEDS: FAMOTIDINE 20MG TAB 20 MG TAB PO SCH ×2 (09:00→21:18)
[2020-09-10] MEDS ORDERED: Vitamin B Complex/Vit C/Folic Acid PO SCH (14:45)
[2020-09-10] MEDS ORDERED: Vitamin B Complex/Vit C/Folic Acid ONE (14:55)
[2020-09-10] MEDS: CLINDAMYCIN 600 MG/D5% WATER 50 ML IV SCH (15:30)
[2020-09-10 16:00] VITALS: BP 141/79
[2020-09-10] MEDS: INSULIN HUMULIN R 100 UNIT/ML 3ML SQ SCH ×2 (16:30→21:00)
[2020-09-10] MEDS: LACTATED RINGERS 1000ML 1,000 ML IV SCH (17:37)
[2020-09-10] MEDS: Vitamin B Complex/Vit C/Folic Acid PO SCH (17:40)
[2020-09-10 19:26] LABS: APPEARANCE,URINE CLOUDY (CLEAR); BILIRUBIN,URINE NEGATIVE (NEGATIVE); COLOR,URINE YELLOW (YELLOW); GLUCOSE, URINE (UA) NEGATIVE (NEGATIVE); KETONES,URINE NEGATIVE (NEGATIVE); LEUKOCYTE ESTERASE ,URINE MODERATE (NEGATIVE); NITRATE,URINE NEGATIVE (NEGATIVE); OCCULT BLOOD,URINE LARGE (NEGATIVE); PH,URINE 5.5 (5.0-8.0); PROTEIN,URINE 100 mg/dL (NEGATIVE); UROBILINOGEN,URINE 0.2 mg/dL (0.2-1.0)
[2020-09-10 19:45] LABS: BACTERIA,URINE Moderate /HPF (None Seen)
[2020-09-10 19:46] LABS: SQUAMOUS EPITHELIAL CELL,UR 0-2 /HPF (0-2)
[2020-09-10 19:47] LABS: MUCUS,URINE Few LPF (None Seen)
[2020-09-10 19:58] VITALS: BP 136/76
[2020-09-10 23:33] VITALS: BP 132/66
[2020-09-11] MEDS: CLINDAMYCIN 600 MG/D5% WATER 50 ML IV SCH ×2 (00:16→09:30)
[2020-09-11 04:00] VITALS: BP 147/73
[2020-09-11 05:01] LABS: BASOPHILS % (AUTO) 0.6 % (0.0-5.0); EOSINOPHILS % (AUTO) 8.3 % (0.0-8.0); HEMATOCRIT 29.4 % (36-48); LYMPHOCYTES % (AUTO) 16.5 % (21.0-51.0); MEAN CORPUSCULAR HEMOGLOBIN 28.8 pg (27.0-33.0); MEAN CORPUSCULAR HGB CONC 31.6 g/dL (32.0-36.0); PLATELET COUNT (AUTO) 243 K/uL (130-400); RED BLOOD CELL COUNT(AUTO) 3.23 MIL/uL (4.00-5.50); RED CELL DISTRIBUTION WIDTH 19.5 % (11.0-15.5); WHITE BLOOD COUNT (AUTO) 6.6 K/uL (4.8-10.8)
[2020-09-11] MEDS: INSULIN HUMULIN R 100 UNIT/ML 3ML SQ SCH ×4 (05:39→21:00)
[2020-09-11 05:45] LABS: CARBON DIOXIDE 24 mmol/L (21-32); CHLORIDE 108 mmol/L (101-111); CREATININE 1.8 mg/dL (0.5-1.5); GLOMERULAR FILTR. RATE CALC 30 mL/min (>60); GLUCOSE,RANDOM 89 mg/dL (70-105); POTASSIUM 5.2 mmol/L (3.5-5.1); SODIUM SERUM 139 mmol/L (136-145); UREA NITROGEN, BLOOD 63 mg/dL (7-18)
[2020-09-11 08:06] VITALS: BP 156/83
[2020-09-11] MEDS: PANTOPRAZOLE SODIUM 40 MG TABLET.DR PO SCH ×2 (09:28→22:49)
[2020-09-11] MEDS: FAMOTIDINE 20MG TAB 20 MG TAB PO SCH (09:28)
[2020-09-11] MEDS: Vitamin B Complex/Vit C/Folic Acid PO SCH (09:28)
[2020-09-11] MEDS: HONEY 1 APPL/ML TUBE TP SCH (09:29)
[2020-09-11 11:23] VITALS: BP 158/82
[2020-09-11] MEDS ORDERED: VANCOMYCIN PROTOCOL PER PHARMACY IV SCH (12:00)
[2020-09-11] MEDS ORDERED: COMPOUND IV REFRIGERATED 1 EACH IVSOLN MISC PRN (12:30)
[2020-09-11] MEDS: CEFEPIME HCL 1 GM VIAL IVP SCH ×2 (12:58→22:49)
[2020-09-11] MEDS: LACTATED RINGERS 1000ML 1,000 ML IV SCH (12:59)
[2020-09-11] MEDS: ACETAMINOPHEN 325 MG TAB PO PRN (13:24)
[2020-09-11] MEDS: VANCOMYCIN 1.25 GM in SODIUM CHLORIDE 0.9% 250 ML IV SCH (13:25)
[2020-09-11] MEDS ORDERED: CALCIUM CHLORIDE 100 MG/ML 10 ML SYG IVP SCH (15:15)
[2020-09-11] MEDS ORDERED: DEXTROSE 50%-WATER 50 ML DISP.SYRIN IV SCH (15:15)
[2020-09-11] MEDS ORDERED: INSULIN HUMULIN R 100 UNIT/ML 3ML SQ SCH (15:15)
[2020-09-11] MEDS: ASCORBIC ACID 500 MG TAB PO SCH (16:00)
[2020-09-11] MEDS: VITAMIN B COMPLEX 1 CAPSULE PO SCH (16:00)
[2020-09-11 17:15] VITALS: BP 154/82
[2020-09-11 17:22] LABS: THYROID STIMULATING HORMONE 8.57 uIU/mL (0.36-3.74)
[2020-09-11 17:24] LABS: CREATININE 1.8 mg/dL (0.5-1.5); POTASSIUM 5.2 mmol/L (3.5-5.1)
[2020-09-11 20:42] VITALS: BP 165/84
[2020-09-11] MEDS ORDERED: PHARMACY COMMUNICATION MISC SCH (21:45)
[2020-09-11 22:47] VITALS: BP 145/79
[2020-09-11] MEDS: FERROUS SULFATE 325 MG TABLET.DR PO SCH (22:49)
[2020-09-11] MEDS: TERBINAFINE HCL 15 GM TUBE TP SCH (22:49)
[2020-09-12] MEDS: VANCOMYCIN 1.25 GM in SODIUM CHLORIDE 0.9% 250 ML IV SCH ×2 (01:12→13:16)
[2020-09-12] MEDS: HYDROCORTISONE 1% 28.35 GM CREAM TP SCH ×3 (01:14→22:17)
[2020-09-12 05:09] VITALS: BP 161/87
[2020-09-12 06:10] LABS: BASOPHILS % (AUTO) 0.7 % (0.0-5.0); EOSINOPHILS % (AUTO) 6.8 % (0.0-8.0); MEAN CORPUSCULAR HEMOGLOBIN 28.7 pg (27.0-33.0); MEAN CORPUSCULAR HGB CONC 31.3 g/dL (32.0-36.0); MONOCYTES % (AUTO) 9.3 % (3.0-13.0); NEUTROPHILS % (AUTO) 69.6 % (40.0-77.0); PLATELET COUNT (AUTO) 255 K/uL (130-400); RED BLOOD CELL COUNT(AUTO) 3.48 MIL/uL (4.00-5.50); RED CELL DISTRIBUTION WIDTH 19.2 % (11.0-15.5)
[2020-09-12] MEDS: CEFEPIME HCL 1 GM VIAL IVP SCH ×3 (06:34→22:15)
[2020-09-12] MEDS: INSULIN HUMULIN R 100 UNIT/ML 3ML SQ SCH ×5 (06:35→21:00)
[2020-09-12 06:38] LABS: ALBUMIN 1.3 g/dL (3.5-5.0); BILIRUBIN,TOTAL 0.3 mg/dL (0.2-1.0); CREATININE 1.8 mg/dL (0.5-1.5); POTASSIUM 5.5 mmol/L (3.5-5.1); THYROID STIMULATING HORMONE 9.54 uIU/mL (0.36-3.74); TOTAL PROTEIN, SERUM 4.8 g/dL (6.0-8.3)
[2020-09-12 08:00] VITALS: BP 120/71
[2020-09-12] MEDS: VITAMIN B COMPLEX 1 CAPSULE PO SCH (09:04)
[2020-09-12] MEDS: Vitamin B Complex/Vit C/Folic Acid PO SCH (09:05)
[2020-09-12] MEDS: FAMOTIDINE 20MG TAB 20 MG TAB PO SCH (09:05)
[2020-09-12] MEDS: PANTOPRAZOLE SODIUM 40 MG TABLET.DR PO SCH ×2 (09:05→22:15)
[2020-09-12] MEDS: ASCORBIC ACID 500 MG TAB PO SCH (09:05)
[2020-09-12] MEDS: FERROUS SULFATE 325 MG TABLET.DR PO SCH ×3 (09:05→22:15)
[2020-09-12] MEDS: ACETAMINOPHEN 325 MG TAB PO PRN (09:06)
[2020-09-12] MEDS ORDERED: DEXTROSE 50%-WATER 50 ML DISP.SYRIN IV SCH (10:00)
[2020-09-12 11:54] VITALS: BP 170/71
[2020-09-12] MEDS: FUROSEMIDE 10 MG/ML 2ML VIAL IV SCH (12:34)
[2020-09-12] MEDS: HONEY 1 APPL/ML TUBE TP SCH (12:35)
[2020-09-12] MEDS: TERBINAFINE HCL 15 GM TUBE TP SCH (12:36)
[2020-09-12] MEDS: HEPARIN SODIUM 5000UNIT/ML 1ML VIAL SQ SCH ×2 (12:38→22:24)
[2020-09-12] MEDS: SODIUM POLYSTYRENE SULFONATE 15 GM/60 ML ML PO SCH (12:43)
[2020-09-12] MEDS: CALCIUM CHLORIDE 100 MG/ML 10 ML SYG IVP SCH (12:44)
[2020-09-12] MEDS ORDERED: CALCIUM CHLORIDE 1,000 MG in SODIUM CHLORIDE 0.9% 100 ML IVP SCH (12:45)
[2020-09-12] MEDS: LEVOTHYROXINE 25 MCG TABLET PO SCH (13:02)
[2020-09-12 16:00] VITALS: BP 119/59
[2020-09-12 19:25] VITALS: BP 180/91
[2020-09-12 20:08] LABS: CREATININE 1.8 mg/dL (0.5-1.5)
[2020-09-13] VITALS (7 sets, daily range): BP systolic 139–167; BP diastolic 65–85
[2020-09-13] MEDS: VANCOMYCIN 1.25 GM in SODIUM CHLORIDE 0.9% 250 ML IV SCH (01:00)
[2020-09-13] MEDS: CEFEPIME HCL 1 GM VIAL IVP SCH ×3 (04:34→20:59)
[2020-09-13 04:41] LABS: BASOPHILS % (AUTO) 0.7 % (0.0-5.0); EOSINOPHILS % (AUTO) 7.6 % (0.0-8.0); LYMPHOCYTES % (AUTO) 15.4 % (21.0-51.0); MEAN CORPUSCULAR HEMOGLOBIN 28.6 pg (27.0-33.0); MEAN CORPUSCULAR HGB CONC 31.1 g/dL (32.0-36.0); MEAN CORPUSCULAR VOLUME 92.1 fL (79-99); MONOCYTES % (AUTO) 9.6 % (3.0-13.0); NEUTROPHILS % (AUTO) 66.1 % (40.0-77.0); PLATELET COUNT (AUTO) 234 K/uL (130-400); RED BLOOD CELL COUNT(AUTO) 3.04 MIL/uL (4.00-5.50); RED CELL DISTRIBUTION WIDTH 18.8 % (11.0-15.5); WHITE BLOOD COUNT (AUTO) 7.1 K/uL (4.8-10.8)
[2020-09-13 05:02] LABS: ALBUMIN 1.2 g/dL (3.5-5.0); BILIRUBIN,TOTAL 0.3 mg/dL (0.2-1.0); CREATININE 1.8 mg/dL (0.5-1.5); POTASSIUM 5.1 mmol/L (3.5-5.1); TOTAL PROTEIN, SERUM 4.6 g/dL (6.0-8.3)
[2020-09-13] MEDS: LEVOTHYROXINE 25 MCG TABLET PO SCH (07:04)
[2020-09-13] MEDS: INSULIN HUMULIN R 100 UNIT/ML 3ML SQ SCH ×5 (07:05→21:00)
[2020-09-13] MEDS: SODIUM POLYSTYRENE SULFONATE 15 GM/60 ML ML PO SCH (08:02)
[2020-09-13] MEDS: CALCIUM CHLORIDE 100 MG/ML 10 ML SYG IVP SCH (08:02)
[2020-09-13] MEDS: FUROSEMIDE 10 MG/ML 2ML VIAL IV SCH (08:02)
[2020-09-13] MEDS: HYDROCORTISONE 1% 28.35 GM CREAM TP SCH ×2 (10:40→21:00)
[2020-09-13] MEDS: TERBINAFINE HCL 15 GM TUBE TP SCH (10:40)
[2020-09-13] MEDS: VITAMIN B COMPLEX 1 CAPSULE PO SCH (10:41)
[2020-09-13] MEDS: FERROUS SULFATE 325 MG TABLET.DR PO SCH ×3 (10:41→20:59)
[2020-09-13] MEDS: HONEY 1 APPL/ML TUBE TP SCH (10:41)
[2020-09-13] MEDS: ASCORBIC ACID 500 MG TAB PO SCH (10:41)
[2020-09-13] MEDS: Vitamin B Complex/Vit C/Folic Acid PO SCH (10:41)
[2020-09-13] MEDS: FAMOTIDINE 20MG TAB 20 MG TAB PO SCH (10:41)
[2020-09-13] MEDS: PANTOPRAZOLE SODIUM 40 MG TABLET.DR PO SCH ×2 (10:41→20:59)
[2020-09-13] MEDS: HEPARIN SODIUM 5000UNIT/ML 1ML VIAL SQ SCH ×2 (10:42→21:01)
[2020-09-13] MEDS ORDERED: MORPHINE SULFATE 2 MG/ML 1ML SYG IVP ONE (13:45)
[2020-09-13] MEDS: VANCOMYCIN 1.5 GM in SODIUM CHLORIDE 0.9% 250 ML IV SCH (13:52)
[2020-09-13] MEDS: ACETAMINOPHEN-CODEINE 300/30MG TAB PO PRN (16:51)
[2020-09-14] VITALS (20 sets, daily range): BP systolic 87–161; BP diastolic 47–88
[2020-09-14] MEDS: CEFEPIME HCL 1 GM VIAL IVP SCH ×3 (05:01→21:02)
[2020-09-14 05:34] LABS: BASOPHILS % (AUTO) 0.7 % (0.0-5.0); EOSINOPHILS % (AUTO) 7.8 % (0.0-8.0); HEMATOCRIT 29.1 % (36-48); LYMPHOCYTES % (AUTO) 12.7 % (21.0-51.0); MEAN CORPUSCULAR HEMOGLOBIN 28.6 pg (27.0-33.0); MEAN CORPUSCULAR HGB CONC 30.9 g/dL (32.0-36.0); MEAN CORPUSCULAR VOLUME 92.4 fL (79-99); MONOCYTES % (AUTO) 7.6 % (3.0-13.0); NEUTROPHILS % (AUTO) 70.5 % (40.0-77.0); PLATELET COUNT (AUTO) 249 K/uL (130-400); RED BLOOD CELL COUNT(AUTO) 3.15 MIL/uL (4.00-5.50); RED CELL DISTRIBUTION WIDTH 18.7 % (11.0-15.5); WHITE BLOOD COUNT (AUTO) 6.9 K/uL (4.8-10.8)
[2020-09-14 06:02] LABS: % IRON SATURATION 44.7 % (22-44)
[2020-09-14 06:08] LABS: ALBUMIN 1.2 g/dL (3.5-5.0); BILIRUBIN,TOTAL 0.3 mg/dL (0.2-1.0); CREATININE 1.7 mg/dL (0.5-1.5); POTASSIUM 4.8 mmol/L (3.5-5.1); TOTAL PROTEIN, SERUM 4.5 g/dL (6.0-8.3)
[2020-09-14] MEDS: LEVOTHYROXINE 25 MCG TABLET PO SCH (06:15)
[2020-09-14] MEDS: INSULIN HUMULIN R 100 UNIT/ML 3ML SQ SCH ×5 (06:15→21:00)
[2020-09-14] MEDS: DEXTROSE 50%-WATER 50 ML DISP.SYRIN IV PRN (06:16)
[2020-09-14] MEDS: HYDROCORTISONE 1% 28.35 GM CREAM TP SCH ×2 (09:00→21:03)
[2020-09-14] MEDS: HONEY 1 APPL/ML TUBE TP SCH (09:00)
[2020-09-14] MEDS: TERBINAFINE HCL 15 GM TUBE TP SCH (09:00)
[2020-09-14] MEDS ORDERED: PROPOFOL 10 MG/ML 20ML VIAL IV ONE (09:24)
[2020-09-14] MEDS ORDERED: LIDOCAINE HCL 1% 20 ML VIAL ONE (09:24)
[2020-09-14] MEDS: FUROSEMIDE 10 MG/ML 2ML VIAL IV SCH (10:00)
[2020-09-14] MEDS: SODIUM POLYSTYRENE SULFONATE 15 GM/60 ML ML PO SCH (10:00)
[2020-09-14] MEDS: HEPARIN SODIUM 5000UNIT/ML 1ML VIAL SQ SCH ×2 (10:15→21:23)
[2020-09-14] MEDS: PANTOPRAZOLE SODIUM 40 MG TABLET.DR PO SCH ×2 (11:39→21:02)
[2020-09-14] MEDS: Vitamin B Complex/Vit C/Folic Acid PO SCH (11:39)
[2020-09-14] MEDS: ASCORBIC ACID 500 MG TAB PO SCH (11:39)
[2020-09-14] MEDS: FERROUS SULFATE 325 MG TABLET.DR PO SCH ×3 (11:39→21:02)
[2020-09-14] MEDS: VITAMIN B COMPLEX 1 CAPSULE PO SCH (11:39)
[2020-09-14] MEDS: FAMOTIDINE 20MG TAB 20 MG TAB PO SCH (11:39)
[2020-09-14] MEDS: VANCOMYCIN 1.5 GM in SODIUM CHLORIDE 0.9% 250 ML IV SCH (13:02)
[2020-09-14] MEDS: ACETAMINOPHEN-CODEINE 300/30MG TAB PO PRN ×2 (14:48→23:17)
[2020-09-15] VITALS (25 sets, daily range): BP systolic 109–168; BP diastolic 61–88
[2020-09-15] MEDS: CEFEPIME HCL 1 GM VIAL IVP SCH ×4 (03:25→21:36)
[2020-09-15 03:48] LABS: BASOPHILS % (AUTO) 0.6 % (0.0-5.0); EOSINOPHILS % (AUTO) 5.3 % (0.0-8.0); HEMATOCRIT 27.7 % (36-48); LYMPHOCYTES % (AUTO) 12.6 % (21.0-51.0); MEAN CORPUSCULAR HEMOGLOBIN 28.9 pg (27.0-33.0); MONOCYTES % (AUTO) 7.2 % (3.0-13.0); NEUTROPHILS % (AUTO) 73.6 % (40.0-77.0); PLATELET COUNT (AUTO) 235 K/uL (130-400); RED BLOOD CELL COUNT(AUTO) 2.98 MIL/uL (4.00-5.50); RED CELL DISTRIBUTION WIDTH 18.7 % (11.0-15.5); WHITE BLOOD COUNT (AUTO) 6.8 K/uL (4.8-10.8)
[2020-09-15 04:00] LABS: CREATININE 1.8 mg/dL (0.5-1.5); POTASSIUM 5.1 mmol/L (3.5-5.1)
[2020-09-15] MEDS: INSULIN HUMULIN R 100 UNIT/ML 3ML SQ SCH ×5 (05:38→21:00)
[2020-09-15] MEDS: LEVOTHYROXINE 25 MCG TABLET PO SCH (05:38)
[2020-09-15] MEDS: PANTOPRAZOLE SODIUM 40 MG TABLET.DR PO SCH (09:00)
[2020-09-15] MEDS: FUROSEMIDE 10 MG/ML 2ML VIAL IV SCH (10:00)
[2020-09-15] MEDS: SODIUM POLYSTYRENE SULFONATE 15 GM/60 ML ML PO SCH (10:00)
[2020-09-15] MEDS: Vitamin B Complex/Vit C/Folic Acid PO SCH (10:11)
[2020-09-15] MEDS: FAMOTIDINE 20MG TAB 20 MG TAB PO SCH (10:12)
[2020-09-15] MEDS: ASCORBIC ACID 500 MG TAB PO SCH (10:12)
[2020-09-15] MEDS: FERROUS SULFATE 325 MG TABLET.DR PO SCH ×3 (10:12→21:14)
[2020-09-15] MEDS: VITAMIN B COMPLEX 1 CAPSULE PO SCH (10:12)
[2020-09-15] MEDS: HYDROCORTISONE 1% 28.35 GM CREAM TP SCH ×2 (10:13→21:14)
[2020-09-15] MEDS: TERBINAFINE HCL 15 GM TUBE TP SCH (10:13)
[2020-09-15] MEDS: HONEY 1 APPL/ML TUBE TP SCH (10:14)
[2020-09-15] MEDS: HEPARIN SODIUM 5000UNIT/ML 1ML VIAL SQ SCH ×2 (10:22→21:25)
[2020-09-15] MEDS: DEXTROSE 50%-WATER 50 ML DISP.SYRIN IV PRN (11:26)
[2020-09-15] MEDS: VANCOMYCIN 1.5 GM in SODIUM CHLORIDE 0.9% 250 ML IV SCH (13:00)
[2020-09-15] MEDS ORDERED: SODIUM CHLORIDE 0.9% 1000ML 1,000 ML IV ONE (14:58)
[2020-09-15] MEDS ORDERED: KETAMINE HCL 100 MG/ML 5ML VIAL IJ ONE (15:12)
[2020-09-15] MEDS ORDERED: MIDAZOLAM HCL 1 MG/ML 2ML VIAL ONE (15:13)
[2020-09-15] MEDS ORDERED: DEXAMETHASONE SOD PHOSPHATE 10MG/ML 1ML VIAL ONE (15:13)
[2020-09-15] MEDS ORDERED: LIDOCAINE PF 2% 5ML ABBOJECT ONE (15:13)
[2020-09-15] MEDS ORDERED: PROPOFOL 10 MG/ML 20ML VIAL IV ONE (15:14)
[2020-09-15] MEDS ORDERED: ONDANSETRON HCL 4 MG/2 ML VIAL ONE (15:14)
[2020-09-15] MEDS ORDERED: VANCOMYCIN 1GM+NS 250ML 250 ML IV ONE (15:14)
[2020-09-15] MEDS ORDERED: FENTANYL CITRATE PF 50 MCG/1 ML 2ML VIAL ONE (15:50)
[2020-09-15] MEDS ORDERED: DEXTROSE 50%-WATER 50 ML DISP.SYRIN IV SCH (16:45)
[2020-09-15] MEDS ORDERED: MEPERIDINE-PF 25 MG/ML SYG ONE (16:49)
[2020-09-15] MEDS: ONDANSETRON HCL 4 MG/2 ML VIAL IV PRN (16:54)
[2020-09-15] MEDS: ACETAMINOPHEN-CODEINE 300/30MG TAB PO PRN (21:43)
[2020-09-15 21:49] LABS: PROTHROMBIN TIME 10.7 SEC (9.6-11.6)
[2020-09-15 21:50] LABS: PARTIAL THROMBOPLASTIN TIME 29.8 SEC (26.3-35.5)
[2020-09-15] MEDS ORDERED: MORPHINE SULFATE 2 MG/ML 1ML SYG ONE (22:11)
[2020-09-15] MEDS ORDERED: MORPHINE SULFATE 4 MG/1ML SYG IV PRN (22:15)
[2020-09-16 00:31] VITALS: BP 140/83
[2020-09-16] MEDS ORDERED: HYDROMORPHONE 1 MG/1 ML AMP IVP ONE (01:30)
[2020-09-16] MEDS ORDERED: HYDROMORPHONE HCL 0.5 MG/0.5 ML ML ONE (01:36)
[2020-09-16 04:27] VITALS: BP 142/70
[2020-09-16] MEDS: CEFEPIME HCL 1 GM VIAL IVP SCH ×3 (04:44→22:38)
[2020-09-16] MEDS: LEVOTHYROXINE 25 MCG TABLET PO SCH (06:23)
[2020-09-16] MEDS: INSULIN HUMULIN R 100 UNIT/ML 3ML SQ SCH ×5 (06:23→21:00)
[2020-09-16] MEDS: Vitamin B Complex/Vit C/Folic Acid PO SCH (08:59)
[2020-09-16] MEDS: ASCORBIC ACID 500 MG TAB PO SCH (08:59)
[2020-09-16] MEDS: FAMOTIDINE 20MG TAB 20 MG TAB PO SCH (08:59)
[2020-09-16] MEDS: VITAMIN B COMPLEX 1 CAPSULE PO SCH (08:59)
[2020-09-16] MEDS: FERROUS SULFATE 325 MG TABLET.DR PO SCH ×3 (08:59→22:38)
[2020-09-16] MEDS: HONEY 1 APPL/ML TUBE TP SCH (09:00)
[2020-09-16] MEDS: TERBINAFINE HCL 15 GM TUBE TP SCH (09:00)
[2020-09-16] MEDS: HYDROCORTISONE 1% 28.35 GM CREAM TP SCH ×2 (09:00→22:48)
[2020-09-16] MEDS: SODIUM POLYSTYRENE SULFONATE 15 GM/60 ML ML PO SCH (10:00)
[2020-09-16 10:11] VITALS: BP 52/69
[2020-09-16] MEDS: FUROSEMIDE 10 MG/ML 2ML VIAL IV SCH (11:04)
[2020-09-16] MEDS: HEPARIN SODIUM 5000UNIT/ML 1ML VIAL SQ SCH ×2 (11:11→22:45)
[2020-09-16 12:03] LABS: HEMATOCRIT 30.4 % (36-48); MEAN CORPUSCULAR HEMOGLOBIN 28.9 pg (27.0-33.0); MEAN CORPUSCULAR HGB CONC 30.6 g/dL (32.0-36.0); MEAN CORPUSCULAR VOLUME 94.4 fL (79-99); PLATELET COUNT (AUTO) 254 K/uL (130-400); RED BLOOD CELL COUNT(AUTO) 3.22 MIL/uL (4.00-5.50); RED CELL DISTRIBUTION WIDTH 18.9 % (11.0-15.5)
[2020-09-16 12:11] LABS: CREATININE 1.8 mg/dL (0.5-1.5); POTASSIUM 4.8 mmol/L (3.5-5.1)
[2020-09-16] MEDS: ACETAMINOPHEN-CODEINE 300/30MG TAB PO PRN (12:18)
[2020-09-16 12:40] VITALS: BP 187/86
[2020-09-16 17:48] VITALS: BP 168/114
[2020-09-16 20:16] VITALS: BP 116/61
[2020-09-16] MEDS: EPOETIN ALFA-EPBX (ESRD) 10,000 UNIT/ML VIAL SQ SCH (22:39)
[2020-09-16] MEDS ORDERED: PHARMACY COMMUNICATION MISC SCH (23:30)
[2020-09-17] VITALS (7 sets, daily range): BP systolic 120–158; BP diastolic 63–92
[2020-09-17] MEDS: HYDROMORPHONE HCL 0.5 MG/0.5 ML ML IVP PRN ×2 (01:18→22:40)
[2020-09-17] MEDS: CEFEPIME HCL 1 GM VIAL IVP SCH ×3 (03:59→21:41)
[2020-09-17 05:54] LABS: BASOPHILS % (AUTO) 0.8 % (0.0-5.0); EOSINOPHILS % (AUTO) 8.6 % (0.0-8.0); HEMATOCRIT 26.7 % (36-48); LYMPHOCYTES % (AUTO) 13.6 % (21.0-51.0); MEAN CORPUSCULAR HEMOGLOBIN 29.2 pg (27.0-33.0); MEAN CORPUSCULAR HGB CONC 31.1 g/dL (32.0-36.0); MONOCYTES % (AUTO) 9.9 % (3.0-13.0); NEUTROPHILS % (AUTO) 66.6 % (40.0-77.0); PLATELET COUNT (AUTO) 231 K/uL (130-400); RED BLOOD CELL COUNT(AUTO) 2.84 MIL/uL (4.00-5.50); RED CELL DISTRIBUTION WIDTH 19.1 % (11.0-15.5); WHITE BLOOD COUNT (AUTO) 7.9 K/uL (4.8-10.8)
[2020-09-17] MEDS: LEVOTHYROXINE 25 MCG TABLET PO SCH (05:58)
[2020-09-17 06:13] LABS: CREATININE 1.8 mg/dL (0.5-1.5); POTASSIUM 5.1 mmol/L (3.5-5.1)
[2020-09-17] MEDS: INSULIN HUMULIN R 100 UNIT/ML 3ML SQ SCH ×5 (07:30→21:00)
[2020-09-17] MEDS ORDERED: VANCOMYCIN 500MG+NS 100ML 100 ML IV SCH (09:00)
[2020-09-17] MEDS: FUROSEMIDE 10 MG/ML 2ML VIAL IV SCH (10:00)
[2020-09-17] MEDS: HONEY 1 APPL/ML TUBE TP SCH (10:21)
[2020-09-17] MEDS: HYDROCORTISONE 1% 28.35 GM CREAM TP SCH ×2 (10:22→21:00)
[2020-09-17] MEDS: TERBINAFINE HCL 15 GM TUBE TP SCH (10:22)
[2020-09-17] MEDS: VITAMIN B COMPLEX 1 CAPSULE PO SCH (10:22)
[2020-09-17] MEDS: FERROUS SULFATE 325 MG TABLET.DR PO SCH ×3 (10:23→21:41)
[2020-09-17] MEDS: ASCORBIC ACID 500 MG TAB PO SCH (10:23)
[2020-09-17] MEDS: Vitamin B Complex/Vit C/Folic Acid PO SCH (10:23)
[2020-09-17] MEDS: FAMOTIDINE 20MG TAB 20 MG TAB PO SCH (10:23)
[2020-09-17] MEDS: HEPARIN SODIUM 5000UNIT/ML 1ML VIAL SQ SCH ×2 (10:32→21:43)
[2020-09-17] MEDS: FLUCONAZOLE 200 MG/NS 100 ML 100 ML IV SCH (13:16)
[2020-09-18 03:55] VITALS: BP 149/91
[2020-09-18] MEDS: CEFEPIME HCL 1 GM VIAL IVP SCH ×3 (04:10→20:37)
[2020-09-18] MEDS: LEVOTHYROXINE 25 MCG TABLET PO SCH (05:17)
[2020-09-18] MEDS: HYDROMORPHONE HCL 0.5 MG/0.5 ML ML IVP PRN ×2 (05:18→21:45)
[2020-09-18 05:55] LABS: BASOPHILS % (AUTO) 0.6 % (0.0-5.0); EOSINOPHILS % (AUTO) 8.1 % (0.0-8.0); HEMATOCRIT 26.3 % (36-48); MEAN CORPUSCULAR HEMOGLOBIN 29.2 pg (27.0-33.0); MEAN CORPUSCULAR HGB CONC 31.2 g/dL (32.0-36.0); MEAN CORPUSCULAR VOLUME 93.6 fL (79-99); NEUTROPHILS % (AUTO) 69.3 % (40.0-77.0); PLATELET COUNT (AUTO) 224 K/uL (130-400); RED BLOOD CELL COUNT(AUTO) 2.81 MIL/uL (4.00-5.50); RED CELL DISTRIBUTION WIDTH 19.4 % (11.0-15.5); WHITE BLOOD COUNT (AUTO) 7.9 K/uL (4.8-10.8)
[2020-09-18] MEDS: INSULIN HUMULIN R 100 UNIT/ML 3ML SQ SCH ×5 (06:21→21:00)
[2020-09-18 06:43] LABS: CREATININE 1.9 mg/dL (0.5-1.5); POTASSIUM 4.9 mmol/L (3.5-5.1)
[2020-09-18 08:00] VITALS: BP 171/94
[2020-09-18] MEDS: ASCORBIC ACID 500 MG TAB PO SCH (08:53)
[2020-09-18] MEDS: Vitamin B Complex/Vit C/Folic Acid PO SCH (08:53)
[2020-09-18] MEDS: FAMOTIDINE 20MG TAB 20 MG TAB PO SCH (08:53)
[2020-09-18] MEDS: FERROUS SULFATE 325 MG TABLET.DR PO SCH ×3 (08:53→14:00)
[2020-09-18] MEDS: VITAMIN B COMPLEX 1 CAPSULE PO SCH (08:53)
[2020-09-18] MEDS: TERBINAFINE HCL 15 GM TUBE TP SCH (08:57)
[2020-09-18] MEDS: HYDROCORTISONE 1% 28.35 GM CREAM TP SCH ×2 (08:57→21:00)
[2020-09-18] MEDS: HONEY 1 APPL/ML TUBE TP SCH (08:58)
[2020-09-18] MEDS: ACETAMINOPHEN-CODEINE 300/30MG TAB PO PRN (08:59)
[2020-09-18] MEDS ORDERED: CLOPIDOGREL BISULFATE 75 MG TAB PO SCH (09:00)
[2020-09-18] MEDS: FUROSEMIDE 10 MG/ML 2ML VIAL IV SCH (10:00)
[2020-09-18] MEDS: FLUTICASONE/VILANTEROL 1 EACH BLST.W.DEV IH SCH ×2 (10:07→20:37)
[2020-09-18 11:00] VITALS: BP 151/68
[2020-09-18] MEDS: HEPARIN SODIUM 5000UNIT/ML 1ML VIAL SQ SCH ×2 (11:48→21:39)
[2020-09-18] MEDS: FLUCONAZOLE 200 MG/NS 100 ML 100 ML IV SCH (11:52)
[2020-09-18] MEDS: CALCIUM 600 + VITAMIN D 400 TABLET PO SCH ×2 (11:53→17:36)
[2020-09-18] MEDS: MAGNESIUM OXIDE 400 MG TABLET PO SCH (11:53)
[2020-09-18] MEDS: FOLIC ACID 1 MG TABLET PO SCH (11:54)
[2020-09-18] MEDS: METOPROLOL TARTRATE 50 MG TAB PO SCH (11:54)
[2020-09-18] MEDS ORDERED: COMPOUND IV MISC 1 EACH IVSOLN MISC PRN (12:30)
[2020-09-18] MEDS: VANCOMYCIN 500MG+NS 100 ML IV SCH (15:19)
[2020-09-18 16:00] VITALS: BP 156/80
[2020-09-18 20:00] VITALS: BP 159/98
[2020-09-18] MEDS: MONTELUKAST SODIUM 10 MG TAB PO SCH (20:37)
[2020-09-18] MEDS: FISH OIL 1000 MG/CAP PO SCH (20:37)
[2020-09-18] MEDS: ATORVASTATIN CALCIUM 10 MG TABLET PO SCH (20:37)
[2020-09-19] VITALS (7 sets, daily range): BP systolic 114–159; BP diastolic 58–78
[2020-09-19] MEDS: CEFEPIME HCL 1 GM VIAL IVP SCH ×3 (04:29→20:27)
[2020-09-19] MEDS: LEVOTHYROXINE 25 MCG TABLET PO SCH (05:47)
[2020-09-19] MEDS: INSULIN HUMULIN R 100 UNIT/ML 3ML SQ SCH ×5 (06:14→20:28)
[2020-09-19 06:16] LABS: BASOPHILS % (AUTO) 0.5 % (0.0-5.0); EOSINOPHILS % (AUTO) 6.4 % (0.0-8.0); HEMATOCRIT 25.6 % (36-48); LYMPHOCYTES % (AUTO) 15.4 % (21.0-51.0); MEAN CORPUSCULAR HEMOGLOBIN 28.9 pg (27.0-33.0); MEAN CORPUSCULAR HGB CONC 30.9 g/dL (32.0-36.0); MEAN CORPUSCULAR VOLUME 93.8 fL (79-99); MONOCYTES % (AUTO) 8.7 % (3.0-13.0); NEUTROPHILS % (AUTO) 67.8 % (40.0-77.0); PLATELET COUNT (AUTO) 212 K/uL (130-400); RED BLOOD CELL COUNT(AUTO) 2.73 MIL/uL (4.00-5.50); RED CELL DISTRIBUTION WIDTH 19.9 % (11.0-15.5); WHITE BLOOD COUNT (AUTO) 7.5 K/uL (4.8-10.8)
[2020-09-19 06:33] LABS: CREATININE 1.9 mg/dL (0.5-1.5); POTASSIUM 4.8 mmol/L (3.5-5.1)
[2020-09-19] MEDS: FLUTICASONE/VILANTEROL 1 EACH BLST.W.DEV IH SCH ×2 (09:00→20:27)
[2020-09-19] MEDS: FERROUS SULFATE 325 MG TABLET.DR PO SCH (09:38)
[2020-09-19] MEDS: Vitamin B Complex/Vit C/Folic Acid PO SCH (09:38)
[2020-09-19] MEDS: FISH OIL 1000 MG/CAP PO SCH ×2 (09:38→20:27)
[2020-09-19] MEDS: VITAMIN B COMPLEX 1 CAPSULE PO SCH (09:38)
[2020-09-19] MEDS: FOLIC ACID 1 MG TABLET PO SCH (09:38)
[2020-09-19] MEDS: FAMOTIDINE 20MG TAB 20 MG TAB PO SCH (09:38)
[2020-09-19] MEDS: MAGNESIUM OXIDE 400 MG TABLET PO SCH (09:39)
[2020-09-19] MEDS: METOPROLOL TARTRATE 50 MG TAB PO SCH (09:40)
[2020-09-19] MEDS: ASCORBIC ACID 500 MG TAB PO SCH (09:40)
[2020-09-19] MEDS: HONEY 1 APPL/ML TUBE TP SCH (09:41)
[2020-09-19] MEDS: CALCIUM 600 + VITAMIN D 400 TABLET PO SCH ×2 (09:41→17:22)
[2020-09-19] MEDS: HYDROCORTISONE 1% 28.35 GM CREAM TP SCH ×2 (09:41→20:28)
[2020-09-19] MEDS: TERBINAFINE HCL 15 GM TUBE TP SCH (09:41)
[2020-09-19] MEDS: HEPARIN SODIUM 5000UNIT/ML 1ML VIAL SQ SCH ×2 (09:46→20:42)
[2020-09-19] MEDS: FUROSEMIDE 10 MG/ML 2ML VIAL IV SCH (10:00)
[2020-09-19] MEDS: FLUCONAZOLE 200 MG/NS 100 ML 100 ML IV SCH (12:15)
[2020-09-19] MEDS: VANCOMYCIN 500MG+NS 100 ML IV SCH (13:45)
[2020-09-19] MEDS: ATORVASTATIN CALCIUM 10 MG TABLET PO SCH (20:27)
[2020-09-19] MEDS: MONTELUKAST SODIUM 10 MG TAB PO SCH (20:27)
[2020-09-19] MEDS: ONDANSETRON HCL 4 MG/2 ML VIAL IV PRN (20:46)
[2020-09-20] VITALS (29 sets, daily range): BP systolic 104–148; BP diastolic 56–78
[2020-09-20] MEDS: LEVOTHYROXINE 25 MCG TABLET PO SCH (04:01)
[2020-09-20] MEDS: CEFEPIME HCL 1 GM VIAL IVP SCH ×3 (04:01→19:51)
[2020-09-20] MEDS: METOPROLOL TARTRATE 50 MG TAB PO SCH (04:01)
[2020-09-20] MEDS: INSULIN HUMULIN R 100 UNIT/ML 3ML SQ SCH ×5 (05:48→19:52)
[2020-09-20 06:01] LABS: BASOPHILS % (AUTO) 0.4 % (0.0-5.0); EOSINOPHILS % (AUTO) 4.5 % (0.0-8.0); HEMATOCRIT 25.5 % (36-48); LYMPHOCYTES % (AUTO) 13.1 % (21.0-51.0); MEAN CORPUSCULAR HEMOGLOBIN 29.3 pg (27.0-33.0); MEAN CORPUSCULAR VOLUME 94.4 fL (79-99); MONOCYTES % (AUTO) 8.7 % (3.0-13.0); NEUTROPHILS % (AUTO) 72.3 % (40.0-77.0); PLATELET COUNT (AUTO) 226 K/uL (130-400); RED CELL DISTRIBUTION WIDTH 19.9 % (11.0-15.5); WHITE BLOOD COUNT (AUTO) 9.1 K/uL (4.8-10.8)
[2020-09-20 06:21] LABS: ALBUMIN 0.9 g/dL (3.5-5.0); BILIRUBIN,TOTAL 0.2 mg/dL (0.2-1.0); CREATININE 1.9 mg/dL (0.5-1.5); POTASSIUM 5.1 mmol/L (3.5-5.1)
[2020-09-20] MEDS: CALCIUM 600 + VITAMIN D 400 TABLET PO SCH ×2 (08:00→16:12)
[2020-09-20] MEDS: HONEY 1 APPL/ML TUBE TP SCH (09:00)
[2020-09-20] MEDS: FLUTICASONE/VILANTEROL 1 EACH BLST.W.DEV IH SCH ×2 (09:00→19:51)
[2020-09-20] MEDS: TERBINAFINE HCL 15 GM TUBE TP SCH (09:00)
[2020-09-20] MEDS: FOLIC ACID 1 MG TABLET PO SCH (09:00)
[2020-09-20] MEDS: HYDROCORTISONE 1% 28.35 GM CREAM TP SCH ×2 (09:00→19:52)
[2020-09-20] MEDS: VITAMIN B COMPLEX 1 CAPSULE PO SCH (09:00)
[2020-09-20] MEDS: MAGNESIUM OXIDE 400 MG TABLET PO SCH (09:00)
[2020-09-20] MEDS: FERROUS SULFATE 325 MG TABLET.DR PO SCH (09:00)
[2020-09-20] MEDS: FISH OIL 1000 MG/CAP PO SCH ×2 (09:00→19:51)
[2020-09-20] MEDS: ASCORBIC ACID 500 MG TAB PO SCH (09:00)
[2020-09-20] MEDS: Vitamin B Complex/Vit C/Folic Acid PO SCH (09:00)
[2020-09-20] MEDS: FAMOTIDINE 20MG TAB 20 MG TAB PO SCH (09:00)
[2020-09-20] MEDS: HYDROMORPHONE HCL 0.5 MG/0.5 ML ML IVP PRN (09:07)
[2020-09-20] MEDS: HEPARIN SODIUM 5000UNIT/ML 1ML VIAL SQ SCH ×2 (10:15→20:01)
[2020-09-20] MEDS ORDERED: MIDAZOLAM HCL 1 MG/ML 2ML VIAL ONE (10:52)
[2020-09-20] MEDS ORDERED: PROPOFOL 10 MG/ML 20ML VIAL IV ONE ×2 (10:52→12:59)
[2020-09-20] MEDS ORDERED: DEXAMETHASONE SOD PHOSPHATE 10MG/ML 1ML VIAL ONE (10:52)
[2020-09-20] MEDS ORDERED: SUCCINYLCHOLINE 200MG/10ML SYR ONE (10:52)
[2020-09-20] MEDS ORDERED: LIDOCAINE PF 2% 5ML ABBOJECT ONE (10:52)
[2020-09-20] MEDS ORDERED: ROCURONIUM 10MG/1ML SYR 10 MG/ML ML ONE (10:53)
[2020-09-20] MEDS ORDERED: GLYCOPYRROLATE 1 MG/5 ML SYRINGE ONE (10:53)
[2020-09-20] MEDS ORDERED: FENTANYL CITRATE PF 50 MCG/1 ML 2ML VIAL ONE (10:53)
[2020-09-20] MEDS ORDERED: ONDANSETRON HCL 4 MG/2 ML VIAL ONE (10:53)
[2020-09-20] MEDS ORDERED: NEOSTIGMINE 5MG/5ML SYR IV ONE (10:53)
[2020-09-20] MEDS ORDERED: KETAMINE 50MG/ML SYRINGE 50 MG/ML DISP.SYRIN IV ONE ×2 (11:00→13:05)
[2020-09-20] MEDS ORDERED: SODIUM CHLORIDE 0.9% 1000ML 1,000 ML IV ONE (11:09)
[2020-09-20] MEDS ORDERED: EPINEPHRINE 1 MG/ML AMPULE ONE (11:24)
[2020-09-20] MEDS ORDERED: DEXTROSE 50%-WATER 50 ML DISP.SYRIN IV SCH (11:45)
[2020-09-20] MEDS: FLUCONAZOLE 200 MG/NS 100 ML 100 ML IV SCH ×2 (12:15→13:20)
[2020-09-20 12:18] LABS: INR 1.17 (0.85-1.15); PROTHROMBIN TIME 12.3 SEC (9.6-11.6)
[2020-09-20 12:19] LABS: PARTIAL THROMBOPLASTIN TIME 30.2 SEC (26.3-35.5)
[2020-09-20] MEDS ORDERED: NEOMY SULF/POLYMYXIN B SULFATE 1 ML AMPUL IR ONE (12:39)
[2020-09-20] MEDS ORDERED: EPHEDRINE SULFATE 50 MG/ML AMPULE ONE (13:14)
[2020-09-20] MEDS ORDERED: NALOXONE HCL 0.4 MG/1 ML ML ONE (13:28)
[2020-09-20] MEDS: ATORVASTATIN CALCIUM 10 MG TABLET PO SCH (19:51)
[2020-09-20] MEDS: MONTELUKAST SODIUM 10 MG TAB PO SCH (19:51)
[2020-09-20] MEDS: ACETAMINOPHEN-CODEINE 300/30MG TAB PO PRN (20:08)
[2020-09-21] MEDS: ACETAMINOPHEN-CODEINE 300/30MG TAB PO PRN ×2 (00:37→21:18)
[2020-09-21] MEDS: CEFEPIME HCL 1 GM VIAL IVP SCH (03:48)
[2020-09-21 03:54] VITALS: BP 133/66
[2020-09-21] MEDS: LEVOTHYROXINE 25 MCG TABLET PO SCH (05:30)
[2020-09-21] MEDS: INSULIN HUMULIN R 100 UNIT/ML 3ML SQ SCH ×5 (06:06→21:00)
[2020-09-21 06:48] LABS: BASOPHILS % (AUTO) 0.6 % (0.0-5.0); EOSINOPHILS % (AUTO) 6.6 % (0.0-8.0); HEMATOCRIT 25.6 % (36-48); LYMPHOCYTES % (AUTO) 11.1 % (21.0-51.0); MEAN CORPUSCULAR HGB CONC 30.5 g/dL (32.0-36.0); MEAN CORPUSCULAR VOLUME 95.2 fL (79-99); MONOCYTES % (AUTO) 8.2 % (3.0-13.0); NEUTROPHILS % (AUTO) 72.2 % (40.0-77.0); PLATELET COUNT (AUTO) 194 K/uL (130-400); RED BLOOD CELL COUNT(AUTO) 2.69 MIL/uL (4.00-5.50); RED CELL DISTRIBUTION WIDTH 20.5 % (11.0-15.5); WHITE BLOOD COUNT (AUTO) 9.6 K/uL (4.8-10.8)
[2020-09-21 06:57] LABS: CREATININE 2.1 mg/dL (0.5-1.5); POTASSIUM 5.2 mmol/L (3.5-5.1)
[2020-09-21 08:00] VITALS: BP 115/59
[2020-09-21] MEDS: FLUTICASONE/VILANTEROL 1 EACH BLST.W.DEV IH SCH ×2 (09:00→21:11)
[2020-09-21] MEDS: HONEY 1 APPL/ML TUBE TP SCH (09:00)
[2020-09-21] MEDS: FERROUS SULFATE 325 MG TABLET.DR PO SCH (09:20)
[2020-09-21] MEDS: VITAMIN B COMPLEX 1 CAPSULE PO SCH (09:20)
[2020-09-21] MEDS: ASCORBIC ACID 500 MG TAB PO SCH (09:20)
[2020-09-21] MEDS: FISH OIL 1000 MG/CAP PO SCH ×2 (09:21→21:11)
[2020-09-21] MEDS: FOLIC ACID 1 MG TABLET PO SCH (09:21)
[2020-09-21] MEDS: METOPROLOL TARTRATE 50 MG TAB PO SCH (09:21)
[2020-09-21] MEDS: MAGNESIUM OXIDE 400 MG TABLET PO SCH (09:21)
[2020-09-21] MEDS: Vitamin B Complex/Vit C/Folic Acid PO SCH (09:21)
[2020-09-21] MEDS: FAMOTIDINE 20MG TAB 20 MG TAB PO SCH (09:21)
[2020-09-21] MEDS: CALCIUM 600 + VITAMIN D 400 TABLET PO SCH ×2 (09:29→17:00)
[2020-09-21] MEDS: TERBINAFINE HCL 15 GM TUBE TP SCH (09:30)
[2020-09-21] MEDS: HYDROCORTISONE 1% 28.35 GM CREAM TP SCH ×2 (09:31→21:28)
[2020-09-21] MEDS: HEPARIN SODIUM 5000UNIT/ML 1ML VIAL SQ SCH ×2 (10:43→21:17)
[2020-09-21 11:55] VITALS: BP 131/69
[2020-09-21] MEDS: CEFTAZIDIME PENTAHYDRATE 1 GM/VIAL IVP SCH ×2 (12:37→23:46)
[2020-09-21] MEDS: FLUCONAZOLE 200 MG/NS 100 ML 100 ML IV SCH (12:37)
[2020-09-21 16:00] VITALS: BP 188/88
[2020-09-21 16:43] LABS: POTASSIUM 5.1 mmol/L (3.5-5.1)
[2020-09-21] MEDS ORDERED: ALTEPLASE 2 MG/VIAL IVCATH SCH (18:00)
[2020-09-21 19:30] VITALS: BP 134/67
[2020-09-21] MEDS: LINEZOLID 600 MG/ISO-OSM 300 ML IV SCH (21:11)
[2020-09-21] MEDS: MONTELUKAST SODIUM 10 MG TAB PO SCH (21:11)
[2020-09-21] MEDS: ATORVASTATIN CALCIUM 10 MG TABLET PO SCH (21:11)
[2020-09-21 23:20] VITALS: BP 129/64
[2020-09-22] MEDS: ACETAMINOPHEN-CODEINE 300/30MG TAB PO PRN ×4 (01:54→23:00)
[2020-09-22 04:00] VITALS: BP 148/86
[2020-09-22] MEDS: LEVOTHYROXINE 25 MCG TABLET PO SCH (05:51)
[2020-09-22 06:20] LABS: HEMATOCRIT 24.4 % (36-48); MEAN CORPUSCULAR HEMOGLOBIN 29.1 pg (27.0-33.0); MEAN CORPUSCULAR HGB CONC 30.7 g/dL (32.0-36.0); MEAN CORPUSCULAR VOLUME 94.6 fL (79-99); PLATELET COUNT (AUTO) 172 K/uL (130-400); RED BLOOD CELL COUNT(AUTO) 2.58 MIL/uL (4.00-5.50); RED CELL DISTRIBUTION WIDTH 20.4 % (11.0-15.5); WHITE BLOOD COUNT (AUTO) 8.5 K/uL (4.8-10.8)
[2020-09-22] MEDS: INSULIN HUMULIN R 100 UNIT/ML 3ML SQ SCH ×4 (06:42→21:00)
[2020-09-22 06:44] LABS: MAGNESIUM 2.9 mg/dL (1.80-2.40); PHOSPHORUS 3.2 mg/dL (2.5-4.9); POTASSIUM 5.4 mmol/L (3.5-5.1)
[2020-09-22 06:47] LABS: PROTEIN,URINE RANDOM 274.4 mg/dL (0-11.9)
[2020-09-22 06:59] LABS: EOSINOPHILS % (MANUAL) 6 % (1-6); LYMPHOCYTES % (MANUAL) 17 % (22-44); MAN.DIFF COMMENT-IMPRESSION MANUAL DIFFERENTIAL; MONOCYTES % (MANUAL) 6 % (2-9); PLATELET MORPHOLOGY COMMENT ADEQUATE; SEGMENTED NEUTROPHILS % 71 % (40-70)
[2020-09-22 07:30] VITALS: BP 136/62
[2020-09-22] MEDS: LINEZOLID 600 MG/ISO-OSM 300 ML IV SCH ×2 (10:13→20:57)
[2020-09-22] MEDS: SODIUM POLYSTYRENE SULFONATE 15 GM/60 ML ML PO SCH (10:14)
[2020-09-22] MEDS: FAMOTIDINE 20MG TAB 20 MG TAB PO SCH (10:14)
[2020-09-22] MEDS: FOLIC ACID 1 MG TABLET PO SCH (10:14)
[2020-09-22] MEDS: FISH OIL 1000 MG/CAP PO SCH ×2 (10:14→21:02)
[2020-09-22] MEDS: MAGNESIUM OXIDE 400 MG TABLET PO SCH (10:15)
[2020-09-22] MEDS: METOPROLOL TARTRATE 50 MG TAB PO SCH (10:15)
[2020-09-22] MEDS: CALCIUM 600 + VITAMIN D 400 TABLET PO SCH ×2 (10:15→17:39)
[2020-09-22] MEDS: Vitamin B Complex/Vit C/Folic Acid PO SCH (10:17)
[2020-09-22] MEDS: VITAMIN B COMPLEX 1 CAPSULE PO SCH (10:17)
[2020-09-22] MEDS: FERROUS SULFATE 325 MG TABLET.DR PO SCH (10:17)
[2020-09-22] MEDS: ASCORBIC ACID 500 MG TAB PO SCH (10:17)
[2020-09-22] MEDS: HYDROCORTISONE 1% 28.35 GM CREAM TP SCH ×2 (10:17→21:04)
[2020-09-22] MEDS: HONEY 1 APPL/ML TUBE TP SCH (10:18)
[2020-09-22] MEDS: TERBINAFINE HCL 15 GM TUBE TP SCH (10:18)
[2020-09-22] MEDS: HEPARIN SODIUM 5000UNIT/ML 1ML VIAL SQ SCH ×2 (10:20→21:11)
[2020-09-22] MEDS: FLUTICASONE/VILANTEROL 1 EACH BLST.W.DEV IH SCH ×2 (10:27→21:09)
[2020-09-22 11:00] VITALS: BP 173/85
[2020-09-22] MEDS: CEFTAZIDIME PENTAHYDRATE 1 GM/VIAL IVP SCH ×2 (11:54→23:19)
[2020-09-22] MEDS: FLUCONAZOLE 200 MG/NS 100 ML 100 ML IV SCH (11:54)
[2020-09-22] MEDS ORDERED: LABETALOL HCL 5 MG/ML 20ML VIAL IV PRN (16:45)
[2020-09-22] MEDS ORDERED: AMLODIPINE BESYLATE 5 MG TAB PO SCH (16:45)
[2020-09-22 17:35] VITALS: BP 153/71
[2020-09-22 19:00] VITALS: BP 155/69
[2020-09-22] MEDS ORDERED: CLOPIDOGREL BISULFATE 75 MG TAB PO SCH (21:00)
[2020-09-22] MEDS: ATORVASTATIN CALCIUM 10 MG TABLET PO SCH (21:02)
[2020-09-22] MEDS: MONTELUKAST SODIUM 10 MG TAB PO SCH (21:03)
[2020-09-23] VITALS (7 sets, daily range): BP systolic 116–151; BP diastolic 59–70
[2020-09-23] MEDS: LEVOTHYROXINE 25 MCG TABLET PO SCH (06:34)
[2020-09-23] MEDS: ACETAMINOPHEN-CODEINE 300/30MG TAB PO PRN (06:38)
[2020-09-23] MEDS: INSULIN HUMULIN R 100 UNIT/ML 3ML SQ SCH ×4 (06:38→20:55)
[2020-09-23 06:44] LABS: BASOPHILS % (AUTO) 0.6 % (0.0-5.0); EOSINOPHILS % (AUTO) 5.1 % (0.0-8.0); HEMATOCRIT 28.1 % (36-48); LYMPHOCYTES % (AUTO) 11.2 % (21.0-51.0); MEAN CORPUSCULAR HEMOGLOBIN 29.4 pg (27.0-33.0); MEAN CORPUSCULAR VOLUME 94.9 fL (79-99); MONOCYTES % (AUTO) 6.6 % (3.0-13.0); NEUTROPHILS % (AUTO) 75.3 % (40.0-77.0); NUCLEATED RED BLOOD CELLS 0.2 % (0.0-0.19); PLATELET COUNT (AUTO) 218 K/uL (130-400); RED BLOOD CELL COUNT(AUTO) 2.96 MIL/uL (4.00-5.50); RED CELL DISTRIBUTION WIDTH 21.1 % (11.0-15.5); WHITE BLOOD COUNT (AUTO) 8.8 K/uL (4.8-10.8)
[2020-09-23 07:25] LABS: CREATININE 2.1 mg/dL (0.5-1.5); MAGNESIUM 2.7 mg/dL (1.80-2.40); POTASSIUM 4.9 mmol/L (3.5-5.1)
[2020-09-23] MEDS: CALCIUM 600 + VITAMIN D 400 TABLET PO SCH ×2 (08:00→17:12)
[2020-09-23] MEDS: SODIUM POLYSTYRENE SULFONATE 15 GM/60 ML ML PO SCH (08:15)
[2020-09-23] MEDS: FLUTICASONE/VILANTEROL 1 EACH BLST.W.DEV IH SCH ×2 (09:00→21:12)
[2020-09-23] MEDS: TERBINAFINE HCL 15 GM TUBE TP SCH (09:00)
[2020-09-23] MEDS: HYDROCORTISONE 1% 28.35 GM CREAM TP SCH ×2 (09:00→21:12)
[2020-09-23] MEDS: HEPARIN SODIUM 5000UNIT/ML 1ML VIAL SQ SCH ×2 (10:15→23:07)
[2020-09-23] MEDS: LINEZOLID 600 MG/ISO-OSM 300 ML IV SCH ×2 (10:35→21:11)
[2020-09-23] MEDS: FERROUS SULFATE 325 MG TABLET.DR PO SCH (10:45)
[2020-09-23] MEDS: VITAMIN B COMPLEX 1 CAPSULE PO SCH (10:45)
[2020-09-23] MEDS: FISH OIL 1000 MG/CAP PO SCH ×2 (10:46→21:11)
[2020-09-23] MEDS: FOLIC ACID 1 MG TABLET PO SCH (10:47)
[2020-09-23] MEDS: METOPROLOL TARTRATE 50 MG TAB PO SCH (10:48)
[2020-09-23] MEDS: MAGNESIUM OXIDE 400 MG TABLET PO SCH (10:48)
[2020-09-23] MEDS: FAMOTIDINE 20MG TAB 20 MG TAB PO SCH (10:49)
[2020-09-23] MEDS: Vitamin B Complex/Vit C/Folic Acid PO SCH (10:49)
[2020-09-23] MEDS: ASCORBIC ACID 500 MG TAB PO SCH (10:50)
[2020-09-23] MEDS: HONEY 1 APPL/ML TUBE TP SCH (12:00)
[2020-09-23] MEDS: CEFTAZIDIME PENTAHYDRATE 1 GM/VIAL IVP SCH ×2 (12:00→23:07)
[2020-09-23] MEDS: FLUCONAZOLE 200 MG/NS 100 ML 100 ML IV SCH (12:30)
[2020-09-23] MEDS: MONTELUKAST SODIUM 10 MG TAB PO SCH (21:11)
[2020-09-23] MEDS: EPOETIN ALFA-EPBX (ESRD) 10,000 UNIT/ML VIAL SQ SCH (21:11)
[2020-09-23] MEDS: ATORVASTATIN CALCIUM 10 MG TABLET PO SCH (21:11)
[2020-09-23] MEDS: DEXTROSE 50%-WATER 50 ML DISP.SYRIN IV PRN (21:12)
[2020-09-24 03:57] VITALS: BP 115/61
[2020-09-24 05:42] LABS: HEMATOCRIT 25.7 % (36-48)
[2020-09-24] MEDS: INSULIN HUMULIN R 100 UNIT/ML 3ML SQ SCH ×4 (05:45→21:00)
[2020-09-24 06:04] LABS: CREATININE 2.3 mg/dL (0.5-1.5); POTASSIUM 4.8 mmol/L (3.5-5.1)
[2020-09-24] MEDS: LEVOTHYROXINE 25 MCG TABLET PO SCH (06:20)
[2020-09-24 08:00] VITALS: BP 118/67
[2020-09-24] MEDS: SODIUM POLYSTYRENE SULFONATE 15 GM/60 ML ML PO SCH (08:15)
[2020-09-24] MEDS: FLUTICASONE/VILANTEROL 1 EACH BLST.W.DEV IH SCH ×2 (09:00→21:15)
[2020-09-24] MEDS: HYDROCORTISONE 1% 28.35 GM CREAM TP SCH ×2 (09:00→21:15)
[2020-09-24] MEDS: TERBINAFINE HCL 15 GM TUBE TP SCH (09:00)
[2020-09-24] MEDS: ASCORBIC ACID 500 MG TAB PO SCH (09:00)
[2020-09-24 11:00] VITALS: BP 133/66
[2020-09-24] MEDS ORDERED: SENNOSIDES 8.6 MG TABLET PO SCH (11:15)
[2020-09-24] MEDS ORDERED: DOCUSATE SODIUM 100 MG CAP PO SCH (11:15)
[2020-09-24] MEDS: LINEZOLID 600 MG/ISO-OSM 300 ML IV SCH ×2 (11:40→21:11)
[2020-09-24] MEDS: CALCIUM 600 + VITAMIN D 400 TABLET PO SCH ×2 (11:41→17:00)
[2020-09-24] MEDS: VITAMIN B COMPLEX 1 CAPSULE PO SCH (11:42)
[2020-09-24] MEDS: FERROUS SULFATE 325 MG TABLET.DR PO SCH (11:43)
[2020-09-24] MEDS: FOLIC ACID 1 MG TABLET PO SCH (11:43)
[2020-09-24] MEDS: FISH OIL 1000 MG/CAP PO SCH ×2 (11:43→21:10)
[2020-09-24] MEDS: METOPROLOL TARTRATE 50 MG TAB PO SCH (11:44)
[2020-09-24] MEDS: Vitamin B Complex/Vit C/Folic Acid PO SCH (11:45)
[2020-09-24] MEDS: FAMOTIDINE 20MG TAB 20 MG TAB PO SCH (11:45)
[2020-09-24] MEDS: MAGNESIUM OXIDE 400 MG TABLET PO SCH (11:45)
[2020-09-24] MEDS: FLUCONAZOLE 200 MG/NS 100 ML 100 ML IV SCH (11:48)
[2020-09-24] MEDS: CEFTAZIDIME PENTAHYDRATE 1 GM/VIAL IVP SCH ×2 (11:48→23:07)
[2020-09-24] MEDS: HEPARIN SODIUM 5000UNIT/ML 1ML VIAL SQ SCH ×2 (12:11→23:08)
[2020-09-24] MEDS: ACETAMINOPHEN-CODEINE 300/30MG TAB PO PRN (12:55)
[2020-09-24] MEDS: ONDANSETRON HCL 4 MG/2 ML VIAL IV PRN (14:32)
[2020-09-24 16:00] VITALS: BP 124/61
[2020-09-24] MEDS: HONEY 1 APPL/ML TUBE TP SCH (17:00)
[2020-09-24 20:00] VITALS: BP 128/67
[2020-09-24] MEDS: MONTELUKAST SODIUM 10 MG TAB PO SCH (21:10)
[2020-09-24] MEDS: ATORVASTATIN CALCIUM 10 MG TABLET PO SCH (21:10)
[2020-09-24] MEDS: DIPHENHYDRAMINE HCL 2% 30 GM CREAM.GM. TP SCH (21:16)
[2020-09-25] VITALS: BP 144/73
[2020-09-25] MEDS: ACETAMINOPHEN-CODEINE 300/30MG TAB PO PRN (01:56)
[2020-09-25 04:00] VITALS: BP 142/64
[2020-09-25 05:53] LABS: HEMATOCRIT 25.3 % (36-48)
[2020-09-25] MEDS: LEVOTHYROXINE 25 MCG TABLET PO SCH (06:33)
[2020-09-25] MEDS: INSULIN HUMULIN R 100 UNIT/ML 3ML SQ SCH ×4 (06:33→21:00)
[2020-09-25 08:00] VITALS: BP 132/54
[2020-09-25] MEDS: CALCIUM 600 + VITAMIN D 400 TABLET PO SCH ×2 (08:00→12:43)
[2020-09-25] MEDS: SODIUM POLYSTYRENE SULFONATE 15 GM/60 ML ML PO SCH (08:15)
[2020-09-25] MEDS: HYDROCORTISONE 1% 28.35 GM CREAM TP SCH ×2 (09:00→21:17)
[2020-09-25] MEDS: TERBINAFINE HCL 15 GM TUBE TP SCH (09:00)
[2020-09-25] MEDS: HEPARIN SODIUM 5000UNIT/ML 1ML VIAL SQ SCH ×2 (10:15→21:45)
[2020-09-25 11:00] VITALS: BP 137/57
[2020-09-25] MEDS: LINEZOLID 600 MG/ISO-OSM 300 ML IV SCH ×2 (12:37→21:15)
[2020-09-25] MEDS: FLUTICASONE/VILANTEROL 1 EACH BLST.W.DEV IH SCH ×2 (12:38→21:16)
[2020-09-25] MEDS: FISH OIL 1000 MG/CAP PO SCH ×2 (12:39→21:16)
[2020-09-25] MEDS: FERROUS SULFATE 325 MG TABLET.DR PO SCH (12:39)
[2020-09-25] MEDS: FAMOTIDINE 20MG TAB 20 MG TAB PO SCH (12:40)
[2020-09-25] MEDS: METOPROLOL TARTRATE 50 MG TAB PO SCH (12:40)
[2020-09-25] MEDS: FOLIC ACID 1 MG TABLET PO SCH (12:40)
[2020-09-25] MEDS: Vitamin B Complex/Vit C/Folic Acid PO SCH (12:40)
[2020-09-25] MEDS: MAGNESIUM OXIDE 400 MG TABLET PO SCH (12:40)
[2020-09-25] MEDS: ASCORBIC ACID 500 MG TAB PO SCH (12:41)
[2020-09-25] MEDS: HONEY 1 APPL/ML TUBE TP SCH (12:42)
[2020-09-25] MEDS: VITAMIN B COMPLEX 1 CAPSULE PO SCH (12:42)
[2020-09-25] MEDS: CEFTAZIDIME PENTAHYDRATE 1 GM/VIAL IVP SCH ×2 (12:43→23:24)
[2020-09-25] MEDS: FLUCONAZOLE 200 MG/NS 100 ML 100 ML IV SCH (12:43)
[2020-09-25 16:00] VITALS: BP 168/61
[2020-09-25 20:00] VITALS: BP 166/71
[2020-09-25] MEDS: MONTELUKAST SODIUM 10 MG TAB PO SCH (21:16)
[2020-09-25] MEDS: DIPHENHYDRAMINE HCL 2% 30 GM CREAM.GM. TP SCH (21:16)
[2020-09-25] MEDS: ATORVASTATIN CALCIUM 10 MG TABLET PO SCH (21:16)
[2020-09-26] VITALS: BP 168/76
[2020-09-26 04:00] VITALS: BP 151/78
[2020-09-26 04:52] LABS: BASOPHILS % (AUTO) 0.5 % (0.0-5.0); EOSINOPHILS % (AUTO) 3.8 % (0.0-8.0); HEMATOCRIT 25.9 % (36-48); LYMPHOCYTES % (AUTO) 11.7 % (21.0-51.0); MEAN CORPUSCULAR HEMOGLOBIN 28.9 pg (27.0-33.0); MEAN CORPUSCULAR HGB CONC 30.5 g/dL (32.0-36.0); MEAN CORPUSCULAR VOLUME 94.9 fL (79-99); MONOCYTES % (AUTO) 7.9 % (3.0-13.0); NEUTROPHILS % (AUTO) 75.2 % (40.0-77.0); PLATELET COUNT (AUTO) 180 K/uL (130-400); RED BLOOD CELL COUNT(AUTO) 2.73 MIL/uL (4.00-5.50); RED CELL DISTRIBUTION WIDTH 21.3 % (11.0-15.5); WHITE BLOOD COUNT (AUTO) 8.7 K/uL (4.8-10.8)
[2020-09-26 05:04] LABS: CREATININE 2.5 mg/dL (0.5-1.5); POTASSIUM 5.3 mmol/L (3.5-5.1)
[2020-09-26] MEDS: INSULIN HUMULIN R 100 UNIT/ML 3ML SQ SCH ×4 (05:58→21:00)
[2020-09-26] MEDS: LEVOTHYROXINE 25 MCG TABLET PO SCH (05:58)
[2020-09-26] MEDS ORDERED: PHARMACY COMMUNICATION MISC SCH (08:00)
[2020-09-26] MEDS: SODIUM POLYSTYRENE SULFONATE 15 GM/60 ML ML PO SCH (08:15)
[2020-09-26 08:31] VITALS: BP 114/75
[2020-09-26] MEDS: LINEZOLID 600 MG/ISO-OSM 300 ML IV SCH ×2 (09:08→21:22)
[2020-09-26] MEDS: VITAMIN B COMPLEX 1 CAPSULE PO SCH (09:09)
[2020-09-26] MEDS: Vitamin B Complex/Vit C/Folic Acid PO SCH (09:09)
[2020-09-26] MEDS: MAGNESIUM OXIDE 400 MG TABLET PO SCH (09:09)
[2020-09-26] MEDS: FISH OIL 1000 MG/CAP PO SCH ×2 (09:09→21:16)
[2020-09-26] MEDS: METOPROLOL TARTRATE 50 MG TAB PO SCH (09:09)
[2020-09-26] MEDS: CALCIUM 600 + VITAMIN D 400 TABLET PO SCH ×2 (09:09→17:00)
[2020-09-26] MEDS: FERROUS SULFATE 325 MG TABLET.DR PO SCH (09:09)
[2020-09-26] MEDS: ASCORBIC ACID 500 MG TAB PO SCH (09:09)
[2020-09-26] MEDS: SODIUM ZIRCONIUM CYCLOSILICATE 10 GM POWD.PACK PO NR (09:09)
[2020-09-26] MEDS: FOLIC ACID 1 MG TABLET PO SCH (09:09)
[2020-09-26] MEDS: FAMOTIDINE 20MG TAB 20 MG TAB PO SCH (09:09)
[2020-09-26] MEDS: DIPHENHYDRAMINE HCL 2% 30 GM CREAM.GM. TP SCH ×2 (09:10→21:23)
[2020-09-26] MEDS: FLUTICASONE/VILANTEROL 1 EACH BLST.W.DEV IH SCH ×2 (09:10→21:22)
[2020-09-26] MEDS: HYDROCORTISONE 1% 28.35 GM CREAM TP SCH ×2 (09:11→21:23)
[2020-09-26] MEDS: HONEY 1 APPL/ML TUBE TP SCH (09:11)
[2020-09-26] MEDS: TERBINAFINE HCL 15 GM TUBE TP SCH (09:12)
[2020-09-26] MEDS: HEPARIN SODIUM 5000UNIT/ML 1ML VIAL SQ SCH ×2 (10:31→21:21)
[2020-09-26 11:34] VITALS: BP 162/85
[2020-09-26] MEDS: ACETAMINOPHEN-CODEINE 300/30MG TAB PO PRN (11:39)
[2020-09-26] MEDS ORDERED: CLOPIDOGREL BISULFATE 75 MG TAB PO SCH (11:45)
[2020-09-26] MEDS: CEFTAZIDIME PENTAHYDRATE 1 GM/VIAL IVP SCH ×2 (12:11→23:57)
[2020-09-26] MEDS: CLOPIDOGREL BISULFATE 75 MG TAB PO SCH (12:11)
[2020-09-26] MEDS: FLUCONAZOLE 200 MG/NS 100 ML 100 ML IV SCH (12:11)
[2020-09-26 18:03] VITALS: BP 155/62
[2020-09-26 20:00] VITALS: BP 132/68
[2020-09-26] MEDS: ATORVASTATIN CALCIUM 10 MG TABLET PO SCH (21:16)
[2020-09-26] MEDS: MONTELUKAST SODIUM 10 MG TAB PO SCH (21:16)
[2020-09-27] VITALS (7 sets, daily range): BP systolic 104–149; BP diastolic 54–85
[2020-09-27] MEDS: INSULIN HUMULIN R 100 UNIT/ML 3ML SQ SCH ×4 (06:09→20:40)
[2020-09-27] MEDS: LEVOTHYROXINE 25 MCG TABLET PO SCH (06:22)
[2020-09-27 07:06] LABS: BASOPHILS % (AUTO) 0.5 % (0.0-5.0); HEMATOCRIT 27.4 % (36-48); LYMPHOCYTES % (AUTO) 12.9 % (21.0-51.0); MEAN CORPUSCULAR HEMOGLOBIN 29.7 pg (27.0-33.0); MEAN CORPUSCULAR HGB CONC 30.7 g/dL (32.0-36.0); MEAN CORPUSCULAR VOLUME 96.8 fL (79-99); MONOCYTES % (AUTO) 7.5 % (3.0-13.0); NEUTROPHILS % (AUTO) 75.4 % (40.0-77.0); PLATELET COUNT (AUTO) 164 K/uL (130-400); RED BLOOD CELL COUNT(AUTO) 2.83 MIL/uL (4.00-5.50); RED CELL DISTRIBUTION WIDTH 21.4 % (11.0-15.5); WHITE BLOOD COUNT (AUTO) 8.4 K/uL (4.8-10.8)
[2020-09-27] MEDS: SODIUM ZIRCONIUM CYCLOSILICATE 10 GM POWD.PACK PO NR (08:11)
[2020-09-27] MEDS: SODIUM POLYSTYRENE SULFONATE 15 GM/60 ML ML PO SCH (08:15)
[2020-09-27 08:24] LABS: CREATININE 2.5 mg/dL (0.5-1.5); POTASSIUM 5.5 mmol/L (3.5-5.1)
[2020-09-27] MEDS: FISH OIL 1000 MG/CAP PO SCH ×2 (10:02→20:39)
[2020-09-27] MEDS: ASCORBIC ACID 500 MG TAB PO SCH (10:02)
[2020-09-27] MEDS: VITAMIN B COMPLEX 1 CAPSULE PO SCH (10:02)
[2020-09-27] MEDS: Vitamin B Complex/Vit C/Folic Acid PO SCH (10:02)
[2020-09-27] MEDS: FOLIC ACID 1 MG TABLET PO SCH (10:02)
[2020-09-27] MEDS: CLOPIDOGREL BISULFATE 75 MG TAB PO SCH (10:03)
[2020-09-27] MEDS: METOPROLOL TARTRATE 50 MG TAB PO SCH (10:03)
[2020-09-27] MEDS: FAMOTIDINE 20MG TAB 20 MG TAB PO SCH (10:03)
[2020-09-27] MEDS: MAGNESIUM OXIDE 400 MG TABLET PO SCH (10:03)
[2020-09-27] MEDS: FERROUS SULFATE 325 MG TABLET.DR PO SCH (10:04)
[2020-09-27] MEDS: DIPHENHYDRAMINE HCL 2% 30 GM CREAM.GM. TP SCH ×2 (10:04→20:43)
[2020-09-27] MEDS: FLUTICASONE/VILANTEROL 1 EACH BLST.W.DEV IH SCH ×2 (10:05→20:41)
[2020-09-27] MEDS: HONEY 1 APPL/ML TUBE TP SCH (10:05)
[2020-09-27] MEDS: HYDROCORTISONE 1% 28.35 GM CREAM TP SCH ×2 (10:07→20:43)
[2020-09-27] MEDS: TERBINAFINE HCL 15 GM TUBE TP SCH (10:08)
[2020-09-27] MEDS: HEPARIN SODIUM 5000UNIT/ML 1ML VIAL SQ SCH ×2 (10:14→22:17)
[2020-09-27] MEDS: CALCIUM 600 + VITAMIN D 400 TABLET PO SCH ×2 (10:18→17:06)
[2020-09-27] MEDS: LINEZOLID 600 MG/ISO-OSM 300 ML IV SCH ×2 (10:21→22:20)
[2020-09-27] MEDS: CEFTAZIDIME PENTAHYDRATE 1 GM/VIAL IVP SCH (12:27)
[2020-09-27] MEDS: FLUCONAZOLE 200 MG/NS 100 ML 100 ML IV SCH (12:28)
[2020-09-27] MEDS: MONTELUKAST SODIUM 10 MG TAB PO SCH (20:39)
[2020-09-27] MEDS: ATORVASTATIN CALCIUM 10 MG TABLET PO SCH (20:40)
[2020-09-28] MEDS: ACETAMINOPHEN-CODEINE 300/30MG TAB PO PRN (00:40)
[2020-09-28] MEDS: CEFTAZIDIME PENTAHYDRATE 1 GM/VIAL IVP SCH ×2 (00:40→12:56)
[2020-09-28 04:28] VITALS: BP 144/67
[2020-09-28 04:41] LABS: BASOPHILS % (AUTO) 0.8 % (0.0-5.0); EOSINOPHILS % (AUTO) 2.5 % (0.0-8.0); HEMATOCRIT 27.1 % (36-48); LYMPHOCYTES % (AUTO) 15.5 % (21.0-51.0); MEAN CORPUSCULAR HEMOGLOBIN 29.1 pg (27.0-33.0); MEAN CORPUSCULAR HGB CONC 30.6 g/dL (32.0-36.0); MEAN CORPUSCULAR VOLUME 95.1 fL (79-99); NEUTROPHILS % (AUTO) 73.5 % (40.0-77.0); PLATELET COUNT (AUTO) 164 K/uL (130-400); RED BLOOD CELL COUNT(AUTO) 2.85 MIL/uL (4.00-5.50); RED CELL DISTRIBUTION WIDTH 21.2 % (11.0-15.5); WHITE BLOOD COUNT (AUTO) 7.6 K/uL (4.8-10.8)
[2020-09-28 04:45] LABS: CREATININE 2.5 mg/dL (0.5-1.5)
[2020-09-28] MEDS: INSULIN HUMULIN R 100 UNIT/ML 3ML SQ SCH ×4 (06:11→20:29)
[2020-09-28] MEDS: LEVOTHYROXINE 25 MCG TABLET PO SCH (06:17)
[2020-09-28 07:51] VITALS: BP 131/62
[2020-09-28] MEDS: SODIUM POLYSTYRENE SULFONATE 15 GM/60 ML ML PO SCH (08:15)
[2020-09-28] MEDS: VITAMIN B COMPLEX 1 CAPSULE PO SCH (09:20)
[2020-09-28] MEDS: ASCORBIC ACID 500 MG TAB PO SCH (09:20)
[2020-09-28] MEDS: CLOPIDOGREL BISULFATE 75 MG TAB PO SCH (09:20)
[2020-09-28] MEDS: METOPROLOL TARTRATE 50 MG TAB PO SCH (09:20)
[2020-09-28] MEDS: MAGNESIUM OXIDE 400 MG TABLET PO SCH (09:20)
[2020-09-28] MEDS: FOLIC ACID 1 MG TABLET PO SCH (09:20)
[2020-09-28] MEDS: FAMOTIDINE 20MG TAB 20 MG TAB PO SCH (09:20)
[2020-09-28] MEDS: Vitamin B Complex/Vit C/Folic Acid PO SCH (09:20)
[2020-09-28] MEDS: FISH OIL 1000 MG/CAP PO SCH ×2 (09:20→20:21)
[2020-09-28] MEDS: FERROUS SULFATE 325 MG TABLET.DR PO SCH (09:20)
[2020-09-28] MEDS: HEPARIN SODIUM 5000UNIT/ML 1ML VIAL SQ SCH (09:27)
[2020-09-28] MEDS: LINEZOLID 600 MG/ISO-OSM 300 ML IV SCH ×2 (09:27→20:20)
[2020-09-28] MEDS: SODIUM ZIRCONIUM CYCLOSILICATE 10 GM POWD.PACK PO NR (09:28)
[2020-09-28] MEDS: HYDROCORTISONE 1% 28.35 GM CREAM TP SCH ×2 (09:28→20:22)
[2020-09-28] MEDS: HONEY 1 APPL/ML TUBE TP SCH (09:28)
[2020-09-28] MEDS: DIPHENHYDRAMINE HCL 2% 30 GM CREAM.GM. TP SCH ×2 (09:29→20:30)
[2020-09-28] MEDS: CALCIUM 600 + VITAMIN D 400 TABLET PO SCH ×2 (09:31→17:32)
[2020-09-28] MEDS: FLUTICASONE/VILANTEROL 1 EACH BLST.W.DEV IH SCH ×2 (09:32→20:21)
[2020-09-28 11:29] VITALS: BP 144/68
[2020-09-28] MEDS: FLUCONAZOLE 200 MG/NS 100 ML 100 ML IV SCH (12:57)
[2020-09-28 15:58] VITALS: BP 144/73
[2020-09-28] MEDS: TERBINAFINE HCL 15 GM TUBE TP SCH (17:38)
[2020-09-28 20:09] VITALS: BP 138/61
[2020-09-28] MEDS: MONTELUKAST SODIUM 10 MG TAB PO SCH (20:21)
[2020-09-28] MEDS: ATORVASTATIN CALCIUM 10 MG TABLET PO SCH (20:21)
[2020-09-28 23:10] VITALS: BP 144/67
[2020-09-29] MEDS: CEFTAZIDIME PENTAHYDRATE 1 GM/VIAL IVP SCH ×3 (00:38→23:59)
[2020-09-29] MEDS: HEPARIN SODIUM 5000UNIT/ML 1ML VIAL SQ SCH ×3 (00:43→21:35)
[2020-09-29 04:51] LABS: BASOPHILS % (AUTO) 0.6 % (0.0-5.0); EOSINOPHILS % (AUTO) 3.8 % (0.0-8.0); HEMATOCRIT 24.9 % (36-48); LYMPHOCYTES % (AUTO) 12.5 % (21.0-51.0); MEAN CORPUSCULAR HEMOGLOBIN 29.7 pg (27.0-33.0); MEAN CORPUSCULAR HGB CONC 30.9 g/dL (32.0-36.0); MEAN CORPUSCULAR VOLUME 96.1 fL (79-99); MONOCYTES % (AUTO) 5.9 % (3.0-13.0); NEUTROPHILS % (AUTO) 76.6 % (40.0-77.0); PLATELET COUNT (AUTO) 144 K/uL (130-400); RED BLOOD CELL COUNT(AUTO) 2.59 MIL/uL (4.00-5.50); RED CELL DISTRIBUTION WIDTH 21.1 % (11.0-15.5); WHITE BLOOD COUNT (AUTO) 7.1 K/uL (4.8-10.8)
[2020-09-29 05:12] LABS: CREATININE 2.7 mg/dL (0.5-1.5); POTASSIUM 4.8 mmol/L (3.5-5.1)
[2020-09-29 05:20] VITALS: BP 139/72
[2020-09-29] MEDS: INSULIN HUMULIN R 100 UNIT/ML 3ML SQ SCH ×3 (05:40→21:00)
[2020-09-29] MEDS: LEVOTHYROXINE 25 MCG TABLET PO SCH (05:48)
[2020-09-29] MEDS: SODIUM ZIRCONIUM CYCLOSILICATE 10 GM POWD.PACK PO NR (08:00)
[2020-09-29] MEDS: SODIUM POLYSTYRENE SULFONATE 15 GM/60 ML ML PO SCH (08:15)
[2020-09-29] MEDS: FLUTICASONE/VILANTEROL 1 EACH BLST.W.DEV IH SCH ×2 (09:00→21:42)
[2020-09-29] MEDS: LINEZOLID 600 MG/ISO-OSM 300 ML IV SCH ×2 (09:16→21:35)
[2020-09-29] MEDS: CALCIUM 600 + VITAMIN D 400 TABLET PO SCH (09:17)
[2020-09-29] MEDS: FOLIC ACID 1 MG TABLET PO SCH (09:18)
[2020-09-29] MEDS: FISH OIL 1000 MG/CAP PO SCH ×2 (09:18→21:35)
[2020-09-29] MEDS: VITAMIN B COMPLEX 1 CAPSULE PO SCH (09:18)
[2020-09-29] MEDS: METOPROLOL TARTRATE 50 MG TAB PO SCH (09:18)
[2020-09-29] MEDS: FERROUS SULFATE 325 MG TABLET.DR PO SCH (09:18)
[2020-09-29] MEDS: Vitamin B Complex/Vit C/Folic Acid PO SCH (09:20)
[2020-09-29] MEDS: HONEY 1 APPL/ML TUBE TP SCH (09:21)
[2020-09-29] MEDS: ASCORBIC ACID 500 MG TAB PO SCH (09:21)
[2020-09-29] MEDS: FAMOTIDINE 20MG TAB 20 MG TAB PO SCH (09:21)
[2020-09-29] MEDS: CLOPIDOGREL BISULFATE 75 MG TAB PO SCH (09:21)
[2020-09-29] MEDS: TERBINAFINE HCL 15 GM TUBE TP SCH (09:21)
[2020-09-29] MEDS: HYDROCORTISONE 1% 28.35 GM CREAM TP SCH ×2 (09:21→21:43)
[2020-09-29] MEDS: DIPHENHYDRAMINE HCL 2% 30 GM CREAM.GM. TP SCH ×2 (09:21→21:42)
[2020-09-29 09:27] VITALS: BP 130/64
[2020-09-29 11:40] VITALS: BP 138/64
[2020-09-29] MEDS: ACETAMINOPHEN-CODEINE 300/30MG TAB PO PRN (12:43)
[2020-09-29] MEDS: MAGNESIUM OXIDE 400 MG TABLET PO SCH (12:44)
[2020-09-29] MEDS: FLUCONAZOLE 200 MG/NS 100 ML 100 ML IV SCH ×2 (12:53→13:45)
[2020-09-29 18:57] VITALS: BP 144/61
[2020-09-29 21:13] VITALS: BP 145/68
[2020-09-29] MEDS: MONTELUKAST SODIUM 10 MG TAB PO SCH (21:35)
[2020-09-29] MEDS: ATORVASTATIN CALCIUM 10 MG TABLET PO SCH (21:35)
[2020-09-30 03:57] VITALS: BP 138/74
[2020-09-30 04:07] LABS: BASOPHILS % (AUTO) 0.7 % (0.0-5.0); EOSINOPHILS % (AUTO) 4.3 % (0.0-8.0); HEMATOCRIT 27.3 % (36-48); LYMPHOCYTES % (AUTO) 15.3 % (21.0-51.0); MEAN CORPUSCULAR HEMOGLOBIN 29.6 pg (27.0-33.0); MEAN CORPUSCULAR HGB CONC 30.8 g/dL (32.0-36.0); MEAN CORPUSCULAR VOLUME 96.1 fL (79-99); MONOCYTES % (AUTO) 6.2 % (3.0-13.0); NEUTROPHILS % (AUTO) 73.1 % (40.0-77.0); PLATELET COUNT (AUTO) 146 K/uL (130-400); RED BLOOD CELL COUNT(AUTO) 2.84 MIL/uL (4.00-5.50); RED CELL DISTRIBUTION WIDTH 20.8 % (11.0-15.5); WHITE BLOOD COUNT (AUTO) 6.8 K/uL (4.8-10.8)
[2020-09-30 04:16] LABS: CREATININE 2.7 mg/dL (0.5-1.5); POTASSIUM 5.3 mmol/L (3.5-5.1)
[2020-09-30] MEDS: INSULIN HUMULIN R 100 UNIT/ML 3ML SQ SCH ×4 (05:55→21:00)
[2020-09-30] MEDS: LEVOTHYROXINE 25 MCG TABLET PO SCH (05:55)
[2020-09-30] MEDS: ACETAMINOPHEN-CODEINE 300/30MG TAB PO PRN (06:17)
[2020-09-30] MEDS: SODIUM ZIRCONIUM CYCLOSILICATE 10 GM POWD.PACK PO NR (08:00)
[2020-09-30] MEDS: SODIUM POLYSTYRENE SULFONATE 15 GM/60 ML ML PO SCH (08:15)
[2020-09-30 08:38] VITALS: BP 145/76
[2020-09-30] MEDS: LINEZOLID 600 MG/ISO-OSM 300 ML IV SCH ×2 (09:52→21:30)
[2020-09-30] MEDS: VITAMIN B COMPLEX 1 CAPSULE PO SCH (09:53)
[2020-09-30] MEDS: MAGNESIUM OXIDE 400 MG TABLET PO SCH (09:53)
[2020-09-30] MEDS: FISH OIL 1000 MG/CAP PO SCH ×2 (09:53→20:09)
[2020-09-30] MEDS: CLOPIDOGREL BISULFATE 75 MG TAB PO SCH (09:53)
[2020-09-30] MEDS: ASCORBIC ACID 500 MG TAB PO SCH (09:53)
[2020-09-30] MEDS: TERBINAFINE HCL 15 GM TUBE TP SCH (09:54)
[2020-09-30] MEDS: FAMOTIDINE 20MG TAB 20 MG TAB PO SCH (09:54)
[2020-09-30] MEDS: FOLIC ACID 1 MG TABLET PO SCH (09:54)
[2020-09-30] MEDS: METOPROLOL TARTRATE 50 MG TAB PO SCH (09:54)
[2020-09-30] MEDS: FERROUS SULFATE 325 MG TABLET.DR PO SCH (09:54)
[2020-09-30] MEDS: Vitamin B Complex/Vit C/Folic Acid PO SCH (09:54)
[2020-09-30] MEDS: HYDROCORTISONE 1% 28.35 GM CREAM TP SCH ×2 (09:55→21:31)
[2020-09-30] MEDS: HONEY 1 APPL/ML TUBE TP SCH (09:55)
[2020-09-30] MEDS: DIPHENHYDRAMINE HCL 2% 30 GM CREAM.GM. TP SCH ×2 (09:57→21:32)
[2020-09-30] MEDS: CALCIUM 600 + VITAMIN D 400 TABLET PO SCH ×3 (09:58→17:05)
[2020-09-30] MEDS: HEPARIN SODIUM 5000UNIT/ML 1ML VIAL SQ SCH ×2 (10:11→22:14)
[2020-09-30] MEDS: FLUTICASONE/VILANTEROL 1 EACH BLST.W.DEV IH SCH ×2 (11:58→21:00)
[2020-09-30] MEDS: CEFTAZIDIME PENTAHYDRATE 1 GM/VIAL IVP SCH (11:59)
[2020-09-30 12:07] VITALS: BP 139/65
[2020-09-30 13:32] LABS: POTASSIUM 3.6 mmol/L (3.5-5.1)
[2020-09-30 15:33] LABS: ALBUMIN 0.6 g/dL (3.5-5.0); BILIRUBIN,DIRECT 0.1 mg/dL (0.0-0.3); BILIRUBIN,TOTAL 0.1 mg/dL (0.2-1.0)
[2020-09-30 16:51] VITALS: BP 149/72
[2020-09-30 17:27] LABS: ALBUMIN 0.6 g/dL (3.5-5.0); BILIRUBIN,DIRECT 0.1 mg/dL (0.0-0.3); BILIRUBIN,TOTAL 0.2 mg/dL (0.2-1.0); CREATININE 2.7 mg/dL (0.5-1.5); POTASSIUM 4.7 mmol/L (3.5-5.1)
[2020-09-30] MEDS ORDERED: ALBUMIN (HUMAN) 25% 100 ML IV ONE (18:00)
[2020-09-30 19:51] VITALS: BP 130/61
[2020-09-30] MEDS: EPOETIN ALFA-EPBX (ESRD) 10,000 UNIT/ML VIAL SQ SCH (19:58)
[2020-09-30] MEDS: ONDANSETRON HCL 4 MG/2 ML VIAL IV PRN (19:59)
[2020-09-30] MEDS: MONTELUKAST SODIUM 10 MG TAB PO SCH (20:09)
[2020-09-30] MEDS: ATORVASTATIN CALCIUM 10 MG TABLET PO SCH (20:09)
[2020-10-01] VITALS: BP 134/61
[2020-10-01] MEDS: CEFTAZIDIME PENTAHYDRATE 1 GM/VIAL IVP SCH ×3 (00:28→22:12)
[2020-10-01 04:00] VITALS: BP 138/68
[2020-10-01] MEDS: LEVOTHYROXINE 25 MCG TABLET PO SCH (04:52)
[2020-10-01] MEDS: INSULIN HUMULIN R 100 UNIT/ML 3ML SQ SCH ×4 (05:27→21:00)
[2020-10-01] MEDS: CALCIUM 600 + VITAMIN D 400 TABLET PO SCH ×2 (08:00→17:00)
[2020-10-01] MEDS: SODIUM ZIRCONIUM CYCLOSILICATE 10 GM POWD.PACK PO NR (08:00)
[2020-10-01] MEDS: SODIUM POLYSTYRENE SULFONATE 15 GM/60 ML ML PO SCH (08:15)
[2020-10-01] MEDS: ASCORBIC ACID 500 MG TAB PO SCH (09:00)
[2020-10-01] MEDS: VITAMIN B COMPLEX 1 CAPSULE PO SCH (09:00)
[2020-10-01] MEDS: MAGNESIUM OXIDE 400 MG TABLET PO SCH (09:00)
[2020-10-01] MEDS: FOLIC ACID 1 MG TABLET PO SCH (09:00)
[2020-10-01] MEDS: FISH OIL 1000 MG/CAP PO SCH ×2 (09:00→21:00)
[2020-10-01] MEDS: Vitamin B Complex/Vit C/Folic Acid PO SCH (09:00)
[2020-10-01 09:57] VITALS: BP 128/57
[2020-10-01] MEDS: METOPROLOL TARTRATE 50 MG TAB PO SCH (10:30)
[2020-10-01] MEDS: CLOPIDOGREL BISULFATE 75 MG TAB PO SCH (10:30)
[2020-10-01] MEDS: FAMOTIDINE 20MG TAB 20 MG TAB PO SCH (10:30)
[2020-10-01] MEDS: FERROUS SULFATE 325 MG TABLET.DR PO SCH (10:31)
[2020-10-01] MEDS: FLUTICASONE/VILANTEROL 1 EACH BLST.W.DEV IH SCH ×2 (10:32→21:00)
[2020-10-01] MEDS: HONEY 1 APPL/ML TUBE TP SCH (10:34)
[2020-10-01] MEDS: HYDROCORTISONE 1% 28.35 GM CREAM TP SCH ×2 (10:34→21:00)
[2020-10-01] MEDS: TERBINAFINE HCL 15 GM TUBE TP SCH (10:35)
[2020-10-01] MEDS: DIPHENHYDRAMINE HCL 2% 30 GM CREAM.GM. TP SCH ×2 (10:35→21:00)
[2020-10-01] MEDS: HEPARIN SODIUM 5000UNIT/ML 1ML VIAL SQ SCH ×2 (10:40→22:15)
[2020-10-01 11:46] LABS: CREATININE 2.8 mg/dL (0.5-1.5); POTASSIUM 5.3 mmol/L (3.5-5.1)
[2020-10-01] MEDS: DEXTROSE 50%-WATER 50 ML DISP.SYRIN IV PRN (12:36)
[2020-10-01 13:02] VITALS: BP 146/58
[2020-10-01] MEDS: FLUCONAZOLE 200 MG/NS 100 ML 100 ML IV SCH (13:10)
[2020-10-01] MEDS: LINEZOLID 600 MG/ISO-OSM 300 ML IV SCH (13:10)
[2020-10-01] MEDS: ACETAMINOPHEN-CODEINE 300/30MG TAB PO PRN (16:49)
[2020-10-01 17:27] VITALS: BP 146/66
[2020-10-01 20:08] VITALS: BP 123/57
[2020-10-01] MEDS: MONTELUKAST SODIUM 10 MG TAB PO SCH (21:00)
[2020-10-01] MEDS: ATORVASTATIN CALCIUM 10 MG TABLET PO SCH (21:00)
[2020-10-02 00:08] VITALS: BP 125/67
[2020-10-02] MEDS: LINEZOLID 600 MG/ISO-OSM 300 ML IV SCH ×3 (01:23→21:11)
[2020-10-02 04:08] VITALS: BP 137/77
[2020-10-02] MEDS ORDERED: SODIUM CHLORIDE 0.9% 500ML 500 ML IV ONE (04:26)
[2020-10-02] MEDS: LEVOTHYROXINE 25 MCG TABLET PO SCH (06:25)
[2020-10-02] MEDS: INSULIN HUMULIN R 100 UNIT/ML 3ML SQ SCH ×4 (06:59→21:00)
[2020-10-02 08:00] VITALS: BP 127/60
[2020-10-02] MEDS: SODIUM ZIRCONIUM CYCLOSILICATE 10 GM POWD.PACK PO NR (08:00)
[2020-10-02] MEDS: SODIUM POLYSTYRENE SULFONATE 15 GM/60 ML ML PO SCH ×2 (08:15→18:36)
[2020-10-02] MEDS: FAMOTIDINE 20MG TAB 20 MG TAB PO SCH (08:45)
[2020-10-02] MEDS: MAGNESIUM OXIDE 400 MG TABLET PO SCH (08:45)
[2020-10-02] MEDS: CLOPIDOGREL BISULFATE 75 MG TAB PO SCH (08:46)
[2020-10-02] MEDS: FISH OIL 1000 MG/CAP PO SCH ×2 (08:46→21:11)
[2020-10-02] MEDS: METOPROLOL TARTRATE 50 MG TAB PO SCH (08:46)
[2020-10-02] MEDS: CALCIUM 600 + VITAMIN D 400 TABLET PO SCH ×2 (08:46→21:11)
[2020-10-02] MEDS: ASCORBIC ACID 500 MG TAB PO SCH (08:46)
[2020-10-02] MEDS: FOLIC ACID 1 MG TABLET PO SCH (08:46)
[2020-10-02] MEDS: VITAMIN B COMPLEX 1 CAPSULE PO SCH (08:47)
[2020-10-02] MEDS: Vitamin B Complex/Vit C/Folic Acid PO SCH (08:47)
[2020-10-02] MEDS: FERROUS SULFATE 325 MG TABLET.DR PO SCH (08:47)
[2020-10-02] MEDS: FLUTICASONE/VILANTEROL 1 EACH BLST.W.DEV IH SCH ×2 (08:48→21:12)
[2020-10-02] MEDS: HYDROCORTISONE 1% 28.35 GM CREAM TP SCH ×2 (08:49→21:12)
[2020-10-02] MEDS: HONEY 1 APPL/ML TUBE TP SCH (09:00)
[2020-10-02] MEDS: TERBINAFINE HCL 15 GM TUBE TP SCH (09:00)
[2020-10-02] MEDS: DIPHENHYDRAMINE HCL 2% 30 GM CREAM.GM. TP SCH ×2 (09:00→21:00)
[2020-10-02] MEDS: HEPARIN SODIUM 5000UNIT/ML 1ML VIAL SQ SCH ×2 (09:26→21:09)
[2020-10-02 12:00] VITALS: BP 141/67
[2020-10-02] MEDS ORDERED: HYDROMORPHONE HCL 0.5 MG/0.5 ML ML IVP SCH (12:30)
[2020-10-02] MEDS: FLUCONAZOLE 200 MG/NS 100 ML 100 ML IV SCH (13:47)
[2020-10-02] MEDS: CEFTAZIDIME PENTAHYDRATE 1 GM/VIAL IVP SCH ×2 (13:51→23:38)
[2020-10-02 16:00] VITALS: BP 127/64
[2020-10-02 19:00] VITALS: BP 127/62
[2020-10-02] MEDS: ATORVASTATIN CALCIUM 10 MG TABLET PO SCH (21:11)
[2020-10-02] MEDS: MONTELUKAST SODIUM 10 MG TAB PO SCH (21:11)
[2020-10-03] VITALS (7 sets, daily range): BP systolic 106–152; BP diastolic 63–72
[2020-10-03] MEDS: ACETAMINOPHEN-CODEINE 300/30MG TAB PO PRN ×2 (03:52→05:54)
[2020-10-03] MEDS ORDERED: ACETAMINOPHEN-CODEINE 300/30MG TAB PO ONE (05:45)
[2020-10-03] MEDS: INSULIN HUMULIN R 100 UNIT/ML 3ML SQ SCH ×4 (05:48→20:33)
[2020-10-03] MEDS: SODIUM ZIRCONIUM CYCLOSILICATE 10 GM POWD.PACK PO NR (05:53)
[2020-10-03] MEDS: CALCIUM 600 + VITAMIN D 400 TABLET PO SCH ×2 (05:53→17:18)
[2020-10-03] MEDS: LINEZOLID 600 MG/ISO-OSM 300 ML IV SCH ×2 (05:53→20:10)
[2020-10-03] MEDS: LEVOTHYROXINE 25 MCG TABLET PO SCH (05:54)
[2020-10-03 08:45] LABS: HEMATOCRIT 21.7 % (36-48); MEAN CORPUSCULAR HEMOGLOBIN 29.9 pg (27.0-33.0); MEAN CORPUSCULAR HGB CONC 30.9 g/dL (32.0-36.0); MEAN CORPUSCULAR VOLUME 96.9 fL (79-99); PLATELET COUNT (AUTO) 84 K/uL (130-400); RED BLOOD CELL COUNT(AUTO) 2.24 MIL/uL (4.00-5.50); RED CELL DISTRIBUTION WIDTH 20.2 % (11.0-15.5); WHITE BLOOD COUNT (AUTO) 7.8 K/uL (4.8-10.8)
[2020-10-03] MEDS: MAGNESIUM OXIDE 400 MG TABLET PO SCH (08:57)
[2020-10-03] MEDS: FERROUS SULFATE 325 MG TABLET.DR PO SCH (08:57)
[2020-10-03] MEDS: Vitamin B Complex/Vit C/Folic Acid PO SCH (08:57)
[2020-10-03] MEDS: CLOPIDOGREL BISULFATE 75 MG TAB PO SCH (08:57)
[2020-10-03] MEDS: FAMOTIDINE 20MG TAB 20 MG TAB PO SCH (08:57)
[2020-10-03] MEDS: ASCORBIC ACID 500 MG TAB PO SCH (08:57)
[2020-10-03] MEDS: HONEY 1 APPL/ML TUBE TP SCH (08:58)
[2020-10-03] MEDS: FOLIC ACID 1 MG TABLET PO SCH (08:58)
[2020-10-03] MEDS: FISH OIL 1000 MG/CAP PO SCH ×2 (08:58→20:11)
[2020-10-03] MEDS: FLUTICASONE/VILANTEROL 1 EACH BLST.W.DEV IH SCH ×2 (08:59→20:14)
[2020-10-03] MEDS: VITAMIN B COMPLEX 1 CAPSULE PO SCH (08:59)
[2020-10-03] MEDS: HYDROCORTISONE 1% 28.35 GM CREAM TP SCH ×2 (09:00→20:15)
[2020-10-03] MEDS: TERBINAFINE HCL 15 GM TUBE TP SCH (09:03)
[2020-10-03] MEDS: DIPHENHYDRAMINE HCL 2% 30 GM CREAM.GM. TP SCH ×2 (09:03→20:16)
[2020-10-03] MEDS: METOPROLOL TARTRATE 50 MG TAB PO SCH (09:03)
[2020-10-03 09:11] LABS: EOSINOPHILS % (MANUAL) 3 % (1-6); LYMPHOCYTES % (MANUAL) 9 % (22-44); MAN.DIFF COMMENT-IMPRESSION MANUAL DIFFERENTIAL; MONOCYTES % (MANUAL) 1 % (2-9); PLATELET MORPHOLOGY COMMENT DECREASED; SEGMENTED NEUTROPHILS % 87 % (40-70)
[2020-10-03 09:14] LABS: CREATININE 2.9 mg/dL (0.5-1.5); PHOSPHORUS 3.5 mg/dL (2.5-4.9); POTASSIUM 4.9 mmol/L (3.5-5.1)
[2020-10-03] MEDS: HEPARIN SODIUM 5000UNIT/ML 1ML VIAL SQ SCH ×2 (09:59→20:12)
[2020-10-03] MEDS: HYDROMORPHONE HCL 0.5 MG/0.5 ML ML IVP PRN ×2 (10:02→20:16)
[2020-10-03] MEDS: FLUCONAZOLE 200 MG/NS 100 ML 100 ML IV SCH (12:32)
[2020-10-03] MEDS: CEFTAZIDIME PENTAHYDRATE 1 GM/VIAL IVP SCH ×2 (12:32→23:44)
[2020-10-03] MEDS: MONTELUKAST SODIUM 10 MG TAB PO SCH (20:11)
[2020-10-03] MEDS: ATORVASTATIN CALCIUM 10 MG TABLET PO SCH (20:11)
[2020-10-04] VITALS (7 sets, daily range): BP systolic 119–150; BP diastolic 72–98
[2020-10-04] MEDS: HYDROMORPHONE HCL 0.5 MG/0.5 ML ML IVP PRN ×2 (01:31→06:38)
[2020-10-04] MEDS: INSULIN HUMULIN R 100 UNIT/ML 3ML SQ SCH ×4 (05:22→20:37)
[2020-10-04 06:11] LABS: BASOPHILS % (AUTO) 0.6 % (0.0-5.0); EOSINOPHILS % (AUTO) 3.6 % (0.0-8.0); HEMATOCRIT 26.5 % (36-48); LYMPHOCYTES % (AUTO) 13.5 % (21.0-51.0); MEAN CORPUSCULAR HEMOGLOBIN 29.8 pg (27.0-33.0); MEAN CORPUSCULAR HGB CONC 32.1 g/dL (32.0-36.0); MONOCYTES % (AUTO) 5.1 % (3.0-13.0); NEUTROPHILS % (AUTO) 76.7 % (40.0-77.0); NUCLEATED RED BLOOD CELLS 0.2 % (0.0-0.19); PLATELET COUNT (AUTO) 94 K/uL (130-400); RED BLOOD CELL COUNT(AUTO) 2.85 MIL/uL (4.00-5.50); RED CELL DISTRIBUTION WIDTH 20.9 % (11.0-15.5); WHITE BLOOD COUNT (AUTO) 8.3 K/uL (4.8-10.8)
[2020-10-04] MEDS: LEVOTHYROXINE 25 MCG TABLET PO SCH (06:14)
[2020-10-04 06:29] LABS: CREATININE 2.9 mg/dL (0.5-1.5); MAGNESIUM 3.2 mg/dL (1.80-2.40); PHOSPHORUS 3.8 mg/dL (2.5-4.9); POTASSIUM 5.1 mmol/L (3.5-5.1)
[2020-10-04] MEDS: SODIUM ZIRCONIUM CYCLOSILICATE 10 GM POWD.PACK PO NR (08:00)
[2020-10-04] MEDS: SODIUM POLYSTYRENE SULFONATE 15 GM/60 ML ML PO SCH (08:15)
[2020-10-04] MEDS: TERBINAFINE HCL 15 GM TUBE TP SCH ×2 (09:00→15:52)
[2020-10-04] MEDS: CEFTAZIDIME PENTAHYDRATE 1 GM/VIAL IVP SCH ×2 (10:14→23:42)
[2020-10-04] MEDS: FISH OIL 1000 MG/CAP PO SCH ×2 (10:14→20:59)
[2020-10-04] MEDS: Vitamin B Complex/Vit C/Folic Acid PO SCH (10:15)
[2020-10-04] MEDS: ASCORBIC ACID 500 MG TAB PO SCH ×2 (10:15→15:51)
[2020-10-04] MEDS: FOLIC ACID 1 MG TABLET PO SCH (10:15)
[2020-10-04] MEDS: CLOPIDOGREL BISULFATE 75 MG TAB PO SCH (10:15)
[2020-10-04] MEDS: FERROUS SULFATE 325 MG TABLET.DR PO SCH (10:15)
[2020-10-04] MEDS: METOPROLOL TARTRATE 50 MG TAB PO SCH (10:15)
[2020-10-04] MEDS: FAMOTIDINE 20MG TAB 20 MG TAB PO SCH (10:15)
[2020-10-04] MEDS: CALCIUM 600 + VITAMIN D 400 TABLET PO SCH ×2 (10:15→15:51)
[2020-10-04] MEDS: VITAMIN B COMPLEX 1 CAPSULE PO SCH (10:15)
[2020-10-04] MEDS: MAGNESIUM OXIDE 400 MG TABLET PO SCH (10:16)
[2020-10-04] MEDS: LINEZOLID 600 MG/ISO-OSM 300 ML IV SCH ×2 (10:16→20:58)
[2020-10-04] MEDS: FLUTICASONE/VILANTEROL 1 EACH BLST.W.DEV IH SCH ×2 (10:17→21:01)
[2020-10-04] MEDS: DIPHENHYDRAMINE HCL 2% 30 GM CREAM.GM. TP SCH ×2 (10:18→21:00)
[2020-10-04] MEDS: HYDROCORTISONE 1% 28.35 GM CREAM TP SCH ×2 (10:18→20:59)
[2020-10-04] MEDS: HONEY 1 APPL/ML TUBE TP SCH (10:19)
[2020-10-04] MEDS: HEPARIN SODIUM 5000UNIT/ML 1ML VIAL SQ SCH ×2 (10:21→22:15)
[2020-10-04 10:29] LABS: BILIRUBIN,URINE Negative (NEGATIVE); COLOR,URINE Yellow (YELLOW); GLUCOSE, URINE (UA) Negative (NEGATIVE); KETONES,URINE Trace mg/dL (NEGATIVE); LEUKOCYTE ESTERASE ,URINE Trace (NEGATIVE); NITRATE,URINE Negative (NEGATIVE); OCCULT BLOOD,URINE Moderate (NEGATIVE); PROTEIN,URINE 300 mg/dL (NEGATIVE); UROBILINOGEN,URINE 0.2 mg/dL (0.2-1.0)
[2020-10-04 10:35] LABS: APPEARANCE,URINE SLIGHTLY CLOUDY (CLEAR); CREATININE,URINE RANDOM 72 mg/dL (30-135)
[2020-10-04 10:49] LABS: BACTERIA,URINE Moderate /HPF (None Seen); CALCIUM OXALATE CRYSTALS,UR Few /LPF (None Seen); MUCUS,URINE Moderate LPF (None Seen); TRANSITIONAL EPI CELLS,URINE Few /HPF (None Seen)
[2020-10-04 11:47] LABS: PROTEIN,URINE RANDOM 337.4 mg/dL (0-11.9)
[2020-10-04] MEDS: FLUCONAZOLE 200 MG/NS 100 ML 100 ML IV SCH (11:58)
[2020-10-04] MEDS: DEXTROSE 50%-WATER 50 ML DISP.SYRIN IV PRN (11:58)
[2020-10-04] MEDS: MONTELUKAST SODIUM 10 MG TAB PO SCH (20:59)
[2020-10-04] MEDS: ATORVASTATIN CALCIUM 10 MG TABLET PO SCH (20:59)
[2020-10-05] MEDS: HYDROMORPHONE HCL 0.5 MG/0.5 ML ML IVP PRN ×2 (03:52→23:01)
[2020-10-05 04:11] VITALS: BP 163/79
[2020-10-05 05:53] LABS: BASOPHILS % (AUTO) 0.7 % (0.0-5.0); EOSINOPHILS % (AUTO) 3.9 % (0.0-8.0); HEMATOCRIT 23.6 % (36-48); LYMPHOCYTES % (AUTO) 11.8 % (21.0-51.0); MEAN CORPUSCULAR HEMOGLOBIN 29.4 pg (27.0-33.0); MEAN CORPUSCULAR HGB CONC 31.8 g/dL (32.0-36.0); MEAN CORPUSCULAR VOLUME 92.5 fL (79-99); NEUTROPHILS % (AUTO) 77.9 % (40.0-77.0); NUCLEATED RED BLOOD CELLS 0.3 % (0.0-0.19); PLATELET COUNT (AUTO) 71 K/uL (130-400); RED BLOOD CELL COUNT(AUTO) 2.55 MIL/uL (4.00-5.50); RED CELL DISTRIBUTION WIDTH 20.5 % (11.0-15.5); WHITE BLOOD COUNT (AUTO) 7.2 K/uL (4.8-10.8)
[2020-10-05 06:11] LABS: ALBUMIN 0.9 g/dL (3.5-5.0); BILIRUBIN,TOTAL 0.2 mg/dL (0.2-1.0); CREATININE 3.1 mg/dL (0.5-1.5); POTASSIUM 4.9 mmol/L (3.5-5.1); TOTAL PROTEIN, SERUM 3.8 g/dL (6.0-8.3)
[2020-10-05] MEDS: INSULIN HUMULIN R 100 UNIT/ML 3ML SQ SCH ×4 (06:30→21:00)
[2020-10-05] MEDS: LEVOTHYROXINE 25 MCG TABLET PO SCH (06:30)
[2020-10-05 08:00] VITALS: BP 132/65
[2020-10-05] MEDS: SODIUM ZIRCONIUM CYCLOSILICATE 10 GM POWD.PACK PO NR (08:06)
[2020-10-05] MEDS: SODIUM POLYSTYRENE SULFONATE 15 GM/60 ML ML PO SCH (08:06)
[2020-10-05] MEDS: LINEZOLID 600 MG/ISO-OSM 300 ML IV SCH (10:02)
[2020-10-05] MEDS: FAMOTIDINE 20MG TAB 20 MG TAB PO SCH (10:02)
[2020-10-05] MEDS: CLOPIDOGREL BISULFATE 75 MG TAB PO SCH (10:03)
[2020-10-05] MEDS: FERROUS SULFATE 325 MG TABLET.DR PO SCH (10:03)
[2020-10-05] MEDS: CALCIUM 600 + VITAMIN D 400 TABLET PO SCH ×2 (10:03→17:11)
[2020-10-05] MEDS: MAGNESIUM OXIDE 400 MG TABLET PO SCH (10:03)
[2020-10-05] MEDS: FISH OIL 1000 MG/CAP PO SCH ×2 (10:03→22:28)
[2020-10-05] MEDS: METOPROLOL TARTRATE 50 MG TAB PO SCH (10:03)
[2020-10-05] MEDS: ASCORBIC ACID 500 MG TAB PO SCH (10:04)
[2020-10-05] MEDS: Vitamin B Complex/Vit C/Folic Acid PO SCH (10:04)
[2020-10-05] MEDS: FOLIC ACID 1 MG TABLET PO SCH (10:04)
[2020-10-05] MEDS: VITAMIN B COMPLEX 1 CAPSULE PO SCH (10:04)
[2020-10-05] MEDS: HEPARIN SODIUM 5000UNIT/ML 1ML VIAL SQ SCH ×2 (10:06→22:43)
[2020-10-05] MEDS: FLUTICASONE/VILANTEROL 1 EACH BLST.W.DEV IH SCH ×2 (10:07→22:51)
[2020-10-05] MEDS: HYDROCORTISONE 1% 28.35 GM CREAM TP SCH ×2 (10:08→22:49)
[2020-10-05] MEDS: HONEY 1 APPL/ML TUBE TP SCH (10:08)
[2020-10-05] MEDS: TERBINAFINE HCL 15 GM TUBE TP SCH (10:09)
[2020-10-05] MEDS: DIPHENHYDRAMINE HCL 2% 30 GM CREAM.GM. TP SCH ×2 (10:09→22:50)
[2020-10-05 12:00] VITALS: BP_SYST 139; BP_SYST 169; BP_DIAS 68; BP_DIAS 75
[2020-10-05] MEDS: FLUCONAZOLE 200 MG/NS 100 ML 100 ML IV SCH (12:49)
[2020-10-05 16:36] VITALS: BP 169/75
[2020-10-05 20:12] VITALS: BP 167/80
[2020-10-05] MEDS: MONTELUKAST SODIUM 10 MG TAB PO SCH (22:28)
[2020-10-05] MEDS: ATORVASTATIN CALCIUM 10 MG TABLET PO SCH (22:28)
[2020-10-06 00:12] VITALS: BP 176/91
[2020-10-06 04:12] VITALS: BP 127/64
[2020-10-06 05:36] LABS: HEMATOCRIT 23.8 % (36-48); MEAN CORPUSCULAR HEMOGLOBIN 29.1 pg (27.0-33.0); MEAN CORPUSCULAR HGB CONC 31.5 g/dL (32.0-36.0); MEAN CORPUSCULAR VOLUME 92.2 fL (79-99); RED BLOOD CELL COUNT(AUTO) 2.58 MIL/uL (4.00-5.50); RED CELL DISTRIBUTION WIDTH 19.9 % (11.0-15.5); WHITE BLOOD COUNT (AUTO) 7.6 K/uL (4.8-10.8)
[2020-10-06 06:03] LABS: CREATININE 3.1 mg/dL (0.5-1.5); POTASSIUM 5.1 mmol/L (3.5-5.1)
[2020-10-06] MEDS: INSULIN HUMULIN R 100 UNIT/ML 3ML SQ SCH ×4 (07:30→21:00)
[2020-10-06] MEDS: LEVOTHYROXINE 25 MCG TABLET PO SCH (07:47)
[2020-10-06] MEDS: HYDROMORPHONE HCL 0.5 MG/0.5 ML ML IVP PRN (07:51)
[2020-10-06 08:00] VITALS: BP 143/54
[2020-10-06] MEDS ORDERED: ASPIRIN 325MG EC TAB 325 MG TABLET.DR PO SCH (08:00)
[2020-10-06] MEDS: CALCIUM 600 + VITAMIN D 400 TABLET PO SCH ×2 (08:00→17:00)
[2020-10-06] MEDS: SODIUM ZIRCONIUM CYCLOSILICATE 10 GM POWD.PACK PO NR (08:00)
[2020-10-06] MEDS: SODIUM POLYSTYRENE SULFONATE 15 GM/60 ML ML PO SCH (08:15)
[2020-10-06] MEDS: ASCORBIC ACID 500 MG TAB PO SCH (09:00)
[2020-10-06] MEDS: HONEY 1 APPL/ML TUBE TP SCH (09:00)
[2020-10-06] MEDS: VITAMIN B COMPLEX 1 CAPSULE PO SCH (09:00)
[2020-10-06] MEDS: DIPHENHYDRAMINE HCL 2% 30 GM CREAM.GM. TP SCH ×2 (09:00→22:14)
[2020-10-06] MEDS: FISH OIL 1000 MG/CAP PO SCH ×2 (09:00→21:00)
[2020-10-06] MEDS: METOPROLOL TARTRATE 50 MG TAB PO SCH (09:00)
[2020-10-06] MEDS: MAGNESIUM OXIDE 400 MG TABLET PO SCH (09:00)
[2020-10-06] MEDS: FLUTICASONE/VILANTEROL 1 EACH BLST.W.DEV IH SCH ×2 (09:00→22:13)
[2020-10-06] MEDS: TERBINAFINE HCL 15 GM TUBE TP SCH (09:00)
[2020-10-06] MEDS: FOLIC ACID 1 MG TABLET PO SCH (09:00)
[2020-10-06] MEDS: FERROUS SULFATE 325 MG TABLET.DR PO SCH (09:00)
[2020-10-06] MEDS: Vitamin B Complex/Vit C/Folic Acid PO SCH (09:00)
[2020-10-06] MEDS: ONDANSETRON HCL 4 MG/2 ML VIAL IV PRN (09:05)
[2020-10-06] MEDS: HEPARIN SODIUM 5000UNIT/ML 1ML VIAL SQ SCH ×2 (11:39→22:21)
[2020-10-06 11:50] VITALS: BP 152/57
[2020-10-06] MEDS: BUSPIRONE HCL 5 MG TABLET PO SCH ×2 (11:57→22:03)
[2020-10-06] MEDS: FLUCONAZOLE 200 MG/NS 100 ML 100 ML IV SCH (14:03)
[2020-10-06] MEDS: CLOPIDOGREL BISULFATE 75 MG TAB PO SCH (14:11)
[2020-10-06 16:00] VITALS: BP 172/58
[2020-10-06] MEDS: PANTOPRAZOLE 40 MG/VIAL IVP SCH (16:42)
[2020-10-06 20:00] VITALS: BP 159/60
[2020-10-06] MEDS: ATORVASTATIN CALCIUM 10 MG TABLET PO SCH (22:03)
[2020-10-06] MEDS: MONTELUKAST SODIUM 10 MG TAB PO SCH (22:03)
[2020-10-06] MEDS: HYDROMORPHONE 1 MG/1 ML AMP IVP PRN (22:04)
[2020-10-06] MEDS: HYDROCORTISONE 1% 28.35 GM CREAM TP SCH (22:14)
[2020-10-07 00:22] VITALS: BP 137/77
[2020-10-07 03:41] VITALS: BP 142/63
[2020-10-07 06:00] LABS: HEMATOCRIT 23.3 % (36-48); MEAN CORPUSCULAR HEMOGLOBIN 29.2 pg (27.0-33.0); MEAN CORPUSCULAR HGB CONC 31.8 g/dL (32.0-36.0); MEAN CORPUSCULAR VOLUME 92.1 fL (79-99); NUCLEATED RED BLOOD CELLS 0.3 % (0.0-0.19); RED BLOOD CELL COUNT(AUTO) 2.53 MIL/uL (4.00-5.50); RED CELL DISTRIBUTION WIDTH 19.5 % (11.0-15.5); WHITE BLOOD COUNT (AUTO) 10.3 K/uL (4.8-10.8)
[2020-10-07] MEDS: LEVOTHYROXINE 25 MCG TABLET PO SCH (06:23)
[2020-10-07] MEDS: LACTULOSE 20 GM/30 ML UDCUP PO PRN ×2 (06:23→09:12)
[2020-10-07] MEDS: INSULIN HUMULIN R 100 UNIT/ML 3ML SQ SCH ×4 (06:27→21:00)
[2020-10-07 06:37] LABS: CREATININE 3.2 mg/dL (0.5-1.5)
[2020-10-07 07:41] VITALS: BP 132/66
[2020-10-07] MEDS: CALCIUM 600 + VITAMIN D 400 TABLET PO SCH ×2 (08:00→17:00)
[2020-10-07] MEDS: SODIUM ZIRCONIUM CYCLOSILICATE 10 GM POWD.PACK PO NR (08:00)
[2020-10-07] MEDS: SODIUM POLYSTYRENE SULFONATE 15 GM/60 ML ML PO SCH (08:15)
[2020-10-07] MEDS: DIPHENHYDRAMINE HCL 2% 30 GM CREAM.GM. TP SCH ×2 (09:00→22:37)
[2020-10-07] MEDS: TERBINAFINE HCL 15 GM TUBE TP SCH (09:00)
[2020-10-07] MEDS: FISH OIL 1000 MG/CAP PO SCH ×2 (09:00→22:25)
[2020-10-07] MEDS: HYDROCORTISONE 1% 28.35 GM CREAM TP SCH ×2 (09:00→22:36)
[2020-10-07] MEDS: HONEY 1 APPL/ML TUBE TP SCH (09:00)
[2020-10-07] MEDS ORDERED: POLYETHYLENE GLYCOL 3350 17 GM POWD.PACK ONE (09:04)
[2020-10-07] MEDS: BUSPIRONE HCL 5 MG TABLET PO SCH ×2 (09:12→22:25)
[2020-10-07] MEDS: Vitamin B Complex/Vit C/Folic Acid PO SCH (09:12)
[2020-10-07] MEDS: FERROUS SULFATE 325 MG TABLET.DR PO SCH (09:12)
[2020-10-07] MEDS: ASCORBIC ACID 500 MG TAB PO SCH (09:12)
[2020-10-07] MEDS: ACETAMINOPHEN-CODEINE 300/30MG TAB PO PRN ×2 (09:13→22:34)
[2020-10-07] MEDS: ONDANSETRON HCL 4 MG/2 ML VIAL IV PRN (09:13)
[2020-10-07] MEDS: METOPROLOL TARTRATE 50 MG TAB PO SCH (09:14)
[2020-10-07] MEDS: CLOPIDOGREL BISULFATE 75 MG TAB PO SCH (09:14)
[2020-10-07] MEDS: VITAMIN B COMPLEX 1 CAPSULE PO SCH (09:15)
[2020-10-07] MEDS: FOLIC ACID 1 MG TABLET PO SCH (09:15)
[2020-10-07] MEDS: PANTOPRAZOLE 40 MG/VIAL IVP SCH (09:20)
[2020-10-07] MEDS: MAGNESIUM OXIDE 400 MG TABLET PO SCH (09:21)
[2020-10-07] MEDS: HYDROMORPHONE 1 MG/1 ML AMP IVP PRN (09:27)
[2020-10-07] MEDS: HEPARIN SODIUM 5000UNIT/ML 1ML VIAL SQ SCH ×2 (10:49→22:26)
[2020-10-07 11:19] VITALS: BP 160/71
[2020-10-07] MEDS: FLUCONAZOLE 200 MG/NS 100 ML 100 ML IV SCH (12:29)
[2020-10-07 15:50] VITALS: BP 144/75
[2020-10-07 20:00] VITALS: BP 131/58
[2020-10-07] MEDS: ATORVASTATIN CALCIUM 10 MG TABLET PO SCH (22:25)
[2020-10-07] MEDS: EPOETIN ALFA-EPBX (ESRD) 10,000 UNIT/ML VIAL SQ SCH (22:25)
[2020-10-07] MEDS: MONTELUKAST SODIUM 10 MG TAB PO SCH (22:25)
[2020-10-07] MEDS: FLUTICASONE/VILANTEROL 1 EACH BLST.W.DEV IH SCH (22:38)
[2020-10-08 00:09] VITALS: BP 143/55
[2020-10-08 03:42] VITALS: BP 136/54
[2020-10-08] MEDS: HYDROMORPHONE 1 MG/1 ML AMP IVP PRN (04:42)
[2020-10-08] MEDS: LEVOTHYROXINE 25 MCG TABLET PO SCH (05:24)
[2020-10-08 05:46] LABS: BASOPHILS % (AUTO) 0.2 % (0.0-5.0); EOSINOPHILS % (AUTO) 0.7 % (0.0-8.0); HEMATOCRIT 21.4 % (36-48); LYMPHOCYTES % (AUTO) 8.7 % (21.0-51.0); MEAN CORPUSCULAR HEMOGLOBIN 29.6 pg (27.0-33.0); MEAN CORPUSCULAR HGB CONC 31.8 g/dL (32.0-36.0); MONOCYTES % (AUTO) 4.9 % (3.0-13.0); NEUTROPHILS % (AUTO) 85.1 % (40.0-77.0); PLATELET COUNT (AUTO) 50 K/uL (130-400); RED CELL DISTRIBUTION WIDTH 19.1 % (11.0-15.5)
[2020-10-08 06:06] LABS: CREATININE 3.4 mg/dL (0.5-1.5); POTASSIUM 5.1 mmol/L (3.5-5.1)
[2020-10-08] MEDS: INSULIN HUMULIN R 100 UNIT/ML 3ML SQ SCH ×4 (07:30→21:00)
[2020-10-08 07:35] VITALS: BP 151/78
[2020-10-08] MEDS: SODIUM ZIRCONIUM CYCLOSILICATE 10 GM POWD.PACK PO NR (08:00)
[2020-10-08] MEDS: SODIUM POLYSTYRENE SULFONATE 15 GM/60 ML ML PO SCH (08:15)
[2020-10-08] MEDS: HONEY 1 APPL/ML TUBE TP SCH (09:00)
[2020-10-08] MEDS: DIPHENHYDRAMINE HCL 2% 30 GM CREAM.GM. TP SCH ×2 (09:00→21:00)
[2020-10-08] MEDS: HYDROCORTISONE 1% 28.35 GM CREAM TP SCH ×2 (09:00→21:00)
[2020-10-08] MEDS: TERBINAFINE HCL 15 GM TUBE TP SCH (09:00)
[2020-10-08] MEDS: FLUTICASONE/VILANTEROL 1 EACH BLST.W.DEV IH SCH ×2 (09:00→22:05)
[2020-10-08] MEDS: DEXTROSE 50%-WATER 50 ML DISP.SYRIN IV PRN ×2 (09:18→09:26)
[2020-10-08] MEDS: FISH OIL 1000 MG/CAP PO SCH ×2 (10:48→22:04)
[2020-10-08] MEDS: MAGNESIUM OXIDE 400 MG TABLET PO SCH (10:49)
[2020-10-08] MEDS: VITAMIN B COMPLEX 1 CAPSULE PO SCH (10:49)
[2020-10-08] MEDS: CALCIUM 600 + VITAMIN D 400 TABLET PO SCH ×2 (10:49→17:00)
[2020-10-08] MEDS: FOLIC ACID 1 MG TABLET PO SCH (10:49)
[2020-10-08] MEDS: FERROUS SULFATE 325 MG TABLET.DR PO SCH (10:49)
[2020-10-08] MEDS: BUSPIRONE HCL 5 MG TABLET PO SCH ×2 (10:49→22:03)
[2020-10-08] MEDS: Vitamin B Complex/Vit C/Folic Acid PO SCH (10:49)
[2020-10-08] MEDS: ASCORBIC ACID 500 MG TAB PO SCH (10:49)
[2020-10-08] MEDS: METOPROLOL TARTRATE 50 MG TAB PO SCH (10:49)
[2020-10-08] MEDS: PANTOPRAZOLE 40 MG/VIAL IVP SCH (10:50)
[2020-10-08 11:30] VITALS: BP 127/65
[2020-10-08 15:13] LABS: HEMATOCRIT 22.8 % (36-48)
[2020-10-08 15:52] VITALS: BP 142/67
[2020-10-08] MEDS ORDERED: PHARMACY COMMUNICATION MISC SCH (17:15)
[2020-10-08] MEDS: FLUCONAZOLE 200 MG/NS 100 ML 100 ML IV SCH (17:49)
[2020-10-08] MEDS: CEFTAZIDIME PENTAHYDRATE 1 GM/VIAL IVP SCH (17:49)
[2020-10-08 21:15] VITALS: BP 113/56
[2020-10-08] MEDS: MONTELUKAST SODIUM 10 MG TAB PO SCH (22:03)
[2020-10-08] MEDS: ATORVASTATIN CALCIUM 10 MG TABLET PO SCH (22:03)
[2020-10-09 00:32] VITALS: BP 120/63
[2020-10-09 00:58] LABS: HEMATOCRIT 23.8 % (36-48)
[2020-10-09 04:12] LABS: BASOPHILS % (AUTO) 0.2 % (0.0-5.0); EOSINOPHILS % (AUTO) 1.6 % (0.0-8.0); HEMATOCRIT 21.7 % (36-48); LYMPHOCYTES % (AUTO) 9.4 % (21.0-51.0); MEAN CORPUSCULAR HEMOGLOBIN 30.5 pg (27.0-33.0); MEAN CORPUSCULAR HGB CONC 33.2 g/dL (32.0-36.0); MEAN CORPUSCULAR VOLUME 91.9 fL (79-99); MONOCYTES % (AUTO) 6.4 % (3.0-13.0); NEUTROPHILS % (AUTO) 82.1 % (40.0-77.0); PLATELET COUNT (AUTO) 38 K/uL (130-400); RED BLOOD CELL COUNT(AUTO) 2.36 MIL/uL (4.00-5.50); RED CELL DISTRIBUTION WIDTH 18.2 % (11.0-15.5); WHITE BLOOD COUNT (AUTO) 8.7 K/uL (4.8-10.8)
[2020-10-09 04:30] VITALS: BP 114/53
[2020-10-09 04:40] LABS: CREATININE 3.7 mg/dL (0.5-1.5); POTASSIUM 5.3 mmol/L (3.5-5.1); THYROID STIMULATING HORMONE 17.42 uIU/mL (0.36-3.74)
[2020-10-09] MEDS ORDERED: SODIUM CHLORIDE 0.9% 10 ML VIAL ONE (06:38)
[2020-10-09] MEDS: LEVOTHYROXINE 25 MCG TABLET PO SCH (06:41)
[2020-10-09] MEDS: CEFTAZIDIME PENTAHYDRATE 1 GM/VIAL IVP SCH ×2 (06:41→17:00)
[2020-10-09] MEDS: CALCIUM 600 + VITAMIN D 400 TABLET PO SCH ×2 (08:00→17:00)
[2020-10-09] MEDS ORDERED: LINEZOLID 600 MG/ISO-OSM 300 ML IV SCH (08:00)
[2020-10-09] MEDS: SODIUM ZIRCONIUM CYCLOSILICATE 10 GM POWD.PACK PO NR (08:00)
[2020-10-09] MEDS: SODIUM POLYSTYRENE SULFONATE 15 GM/60 ML ML PO SCH ×2 (08:15→08:30)
[2020-10-09] MEDS ORDERED: DEXTROSE 50%-WATER 50 ML DISP.SYRIN IV SCH (08:30)
[2020-10-09] MEDS: INSULIN HUMULIN R 100 UNIT/ML 3ML SQ SCH (08:30)
[2020-10-09 08:38] VITALS: BP 134/64
[2020-10-09] MEDS: DIPHENHYDRAMINE HCL 2% 30 GM CREAM.GM. TP SCH ×2 (09:00→21:48)
[2020-10-09] MEDS: HONEY 1 APPL/ML TUBE TP SCH (09:00)
[2020-10-09] MEDS: TERBINAFINE HCL 15 GM TUBE TP SCH (09:00)
[2020-10-09] MEDS: FLUTICASONE/VILANTEROL 1 EACH BLST.W.DEV IH SCH ×2 (09:00→21:00)
[2020-10-09] MEDS: MAGNESIUM OXIDE 400 MG TABLET PO SCH (09:00)
[2020-10-09] MEDS: HYDROCORTISONE 1% 28.35 GM CREAM TP SCH ×2 (09:00→21:48)
[2020-10-09] MEDS: PANTOPRAZOLE 40 MG/VIAL IVP SCH (09:00)
[2020-10-09] MEDS: FOLIC ACID 1 MG TABLET PO SCH (10:53)
[2020-10-09] MEDS: VITAMIN B COMPLEX 1 CAPSULE PO SCH (10:54)
[2020-10-09] MEDS: FERROUS SULFATE 325 MG TABLET.DR PO SCH (10:54)
[2020-10-09] MEDS: BUSPIRONE HCL 5 MG TABLET PO SCH ×2 (10:54→21:23)
[2020-10-09] MEDS: FISH OIL 1000 MG/CAP PO SCH ×2 (10:54→21:23)
[2020-10-09] MEDS: Vitamin B Complex/Vit C/Folic Acid PO SCH (10:54)
[2020-10-09] MEDS: ASCORBIC ACID 500 MG TAB PO SCH (10:54)
[2020-10-09] MEDS: METOPROLOL TARTRATE 50 MG TAB PO SCH (10:54)
[2020-10-09] MEDS: FLUCONAZOLE 200 MG/NS 100 ML 100 ML IV SCH (10:55)
[2020-10-09] MEDS ORDERED: PATI8.4P PO (11:26)
[2020-10-09 11:34] VITALS: BP 138/55
[2020-10-09 16:02] VITALS: BP 119/58
[2020-10-09] MEDS ORDERED: PATIROMER CALCIUM SORBITEX PO PRN (18:00)
[2020-10-09] MEDS: MONTELUKAST SODIUM 10 MG TAB PO SCH (21:23)
[2020-10-09] MEDS: ATORVASTATIN CALCIUM 10 MG TABLET PO SCH (21:23)
[2020-10-09] MEDS: HYDROMORPHONE 1 MG/1 ML AMP IVP PRN (21:48)
[2020-10-09 23:13] VITALS: BP 119/54
[2020-10-10 01:18] VITALS: BP 167/97
[2020-10-10 04:02] LABS: BASOPHILS % (AUTO) 0.3 % (0.0-5.0); EOSINOPHILS % (AUTO) 2.8 % (0.0-8.0); LYMPHOCYTES % (AUTO) 13.6 % (21.0-51.0); MEAN CORPUSCULAR HEMOGLOBIN 29.1 pg (27.0-33.0); MEAN CORPUSCULAR VOLUME 93.9 fL (79-99); MONOCYTES % (AUTO) 9.2 % (3.0-13.0); NEUTROPHILS % (AUTO) 73.7 % (40.0-77.0); PLATELET COUNT (AUTO) 32 K/uL (130-400); RED BLOOD CELL COUNT(AUTO) 2.13 MIL/uL (4.00-5.50); RED CELL DISTRIBUTION WIDTH 18.1 % (11.0-15.5); WHITE BLOOD COUNT (AUTO) 7.5 K/uL (4.8-10.8)
[2020-10-10 04:06] VITALS: BP 127/55
[2020-10-10] MEDS ORDERED: SODIUM CHLORIDE 0.9% 250 ML IV ONE (04:39)
[2020-10-10] MEDS: CEFTAZIDIME PENTAHYDRATE 1 GM/VIAL IVP SCH ×2 (04:44→17:19)
[2020-10-10 04:46] LABS: ALBUMIN 0.8 g/dL (3.5-5.0); BILIRUBIN,TOTAL 0.2 mg/dL (0.2-1.0); CREATININE 3.8 mg/dL (0.5-1.5); PHOSPHORUS 3.9 mg/dL (2.5-4.9); POTASSIUM 5.4 mmol/L (3.5-5.1); TOTAL PROTEIN, SERUM 3.7 g/dL (6.0-8.3)
[2020-10-10] MEDS: LEVOTHYROXINE 50 MCG TABLET PO SCH (06:52)
[2020-10-10 08:00] VITALS: BP 114/68
[2020-10-10] MEDS: CALCIUM 600 + VITAMIN D 400 TABLET PO SCH ×2 (08:00→17:19)
[2020-10-10] MEDS: SODIUM POLYSTYRENE SULFONATE 15 GM/60 ML ML PO SCH ×2 (08:15→08:30)
[2020-10-10] MEDS: INSULIN HUMULIN R 100 UNIT/ML 3ML SQ SCH (08:30)
[2020-10-10] MEDS: MAGNESIUM OXIDE 400 MG TABLET PO SCH (09:53)
[2020-10-10] MEDS: METOPROLOL TARTRATE 50 MG TAB PO SCH (09:54)
[2020-10-10] MEDS: FOLIC ACID 1 MG TABLET PO SCH (09:54)
[2020-10-10] MEDS: Vitamin B Complex/Vit C/Folic Acid PO SCH (09:54)
[2020-10-10] MEDS: ASCORBIC ACID 500 MG TAB PO SCH (09:54)
[2020-10-10] MEDS: FISH OIL 1000 MG/CAP PO SCH ×2 (09:54→21:11)
[2020-10-10] MEDS: BUSPIRONE HCL 5 MG TABLET PO SCH ×2 (09:54→21:11)
[2020-10-10] MEDS: VITAMIN B COMPLEX 1 CAPSULE PO SCH (09:54)
[2020-10-10] MEDS: FERROUS SULFATE 325 MG TABLET.DR PO SCH (09:55)
[2020-10-10] MEDS: PANTOPRAZOLE 40 MG/VIAL IVP SCH (09:55)
[2020-10-10] MEDS: SODIUM ZIRCONIUM CYCLOSILICATE 10 GM POWD.PACK PO NR (09:57)
[2020-10-10] MEDS: DIPHENHYDRAMINE HCL 2% 30 GM CREAM.GM. TP SCH ×2 (09:59→21:12)
[2020-10-10] MEDS: FLUTICASONE/VILANTEROL 1 EACH BLST.W.DEV IH SCH (09:59)
[2020-10-10] MEDS: HYDROCORTISONE 1% 28.35 GM CREAM TP SCH ×2 (10:00→21:13)
[2020-10-10] MEDS: TERBINAFINE HCL 15 GM TUBE TP SCH (10:01)
[2020-10-10] MEDS: HONEY 1 APPL/ML TUBE TP SCH (10:04)
[2020-10-10] MEDS: HYDROMORPHONE 1 MG/1 ML AMP IVP PRN (11:24)
[2020-10-10] MEDS: FLUCONAZOLE 200 MG/NS 100 ML 100 ML IV SCH (11:25)
[2020-10-10 12:00] VITALS: BP 143/81
[2020-10-10 14:04] LABS: HEMATOCRIT 26.8 % (36-48); MEAN CORPUSCULAR HEMOGLOBIN 29.3 pg (27.0-33.0); MEAN CORPUSCULAR VOLUME 94.7 fL (79-99); PLATELET COUNT (AUTO) 32 K/uL (130-400); RED BLOOD CELL COUNT(AUTO) 2.83 MIL/uL (4.00-5.50); RED CELL DISTRIBUTION WIDTH 17.2 % (11.0-15.5); WHITE BLOOD COUNT (AUTO) 8.6 K/uL (4.8-10.8)
[2020-10-10 16:00] VITALS: BP 110/65
[2020-10-10 20:00] VITALS: BP 108/52
[2020-10-10] MEDS: ATORVASTATIN CALCIUM 10 MG TABLET PO SCH (21:11)
[2020-10-10] MEDS: MONTELUKAST SODIUM 10 MG TAB PO SCH (21:11)
[2020-10-11] VITALS (7 sets, daily range): BP systolic 106–143; BP diastolic 54–71
[2020-10-11] MEDS: ACETAMINOPHEN-CODEINE 300/30MG TAB PO PRN ×2 (00:07→20:49)
[2020-10-11] MEDS: CEFTAZIDIME PENTAHYDRATE 1 GM/VIAL IVP SCH ×2 (05:38→17:11)
[2020-10-11] MEDS: LEVOTHYROXINE 50 MCG TABLET PO SCH (05:47)
[2020-10-11 06:04] LABS: BASOPHILS % (AUTO) 0.4 % (0.0-5.0); EOSINOPHILS % (AUTO) 3.9 % (0.0-8.0); HEMATOCRIT 22.4 % (36-48); LYMPHOCYTES % (AUTO) 11.9 % (21.0-51.0); MEAN CORPUSCULAR HEMOGLOBIN 30.2 pg (27.0-33.0); MEAN CORPUSCULAR HGB CONC 32.6 g/dL (32.0-36.0); MEAN CORPUSCULAR VOLUME 92.6 fL (79-99); MONOCYTES % (AUTO) 10.3 % (3.0-13.0); NEUTROPHILS % (AUTO) 73.1 % (40.0-77.0); PLATELET COUNT (AUTO) 26 K/uL (130-400); RED BLOOD CELL COUNT(AUTO) 2.42 MIL/uL (4.00-5.50); RED CELL DISTRIBUTION WIDTH 17.4 % (11.0-15.5)
[2020-10-11 06:29] LABS: POTASSIUM 5.4 mmol/L (3.5-5.1)
[2020-10-11] MEDS: SODIUM ZIRCONIUM CYCLOSILICATE 10 GM POWD.PACK PO NR (08:00)
[2020-10-11] MEDS: CALCIUM 600 + VITAMIN D 400 TABLET PO SCH ×2 (08:00→17:11)
[2020-10-11] MEDS: SODIUM POLYSTYRENE SULFONATE 15 GM/60 ML ML PO SCH ×2 (08:15→08:30)
[2020-10-11] MEDS: INSULIN HUMULIN R 100 UNIT/ML 3ML SQ SCH (08:30)
[2020-10-11] MEDS: FERROUS SULFATE 325 MG TABLET.DR PO SCH (10:27)
[2020-10-11] MEDS: PANTOPRAZOLE 40 MG/VIAL IVP SCH (10:27)
[2020-10-11] MEDS: MAGNESIUM OXIDE 400 MG TABLET PO SCH (10:28)
[2020-10-11] MEDS: FISH OIL 1000 MG/CAP PO SCH ×2 (10:28→20:27)
[2020-10-11] MEDS: FOLIC ACID 1 MG TABLET PO SCH (10:28)
[2020-10-11] MEDS: BUSPIRONE HCL 5 MG TABLET PO SCH ×2 (10:28→20:27)
[2020-10-11] MEDS: VITAMIN B COMPLEX 1 CAPSULE PO SCH (10:28)
[2020-10-11] MEDS: METOPROLOL TARTRATE 50 MG TAB PO SCH (10:28)
[2020-10-11] MEDS: ASCORBIC ACID 500 MG TAB PO SCH (10:28)
[2020-10-11] MEDS: DIPHENHYDRAMINE HCL 2% 30 GM CREAM.GM. TP SCH ×2 (10:44→20:31)
[2020-10-11] MEDS: HYDROCORTISONE 1% 28.35 GM CREAM TP SCH (10:44)
[2020-10-11] MEDS: TERBINAFINE HCL 15 GM TUBE TP SCH (10:45)
[2020-10-11] MEDS: FLUCONAZOLE 200 MG/NS 100 ML 100 ML IV SCH (10:46)
[2020-10-11] MEDS: ATORVASTATIN CALCIUM 10 MG TABLET PO SCH (20:27)
[2020-10-11] MEDS: MONTELUKAST SODIUM 10 MG TAB PO SCH (20:28)
[2020-10-11] MEDS: FLUTICASONE/VILANTEROL 1 EACH BLST.W.DEV IH SCH ×2 (20:32→20:47)
[2020-10-12 03:52] VITALS: BP 100/48
[2020-10-12] MEDS: ACETAMINOPHEN-CODEINE 300/30MG TAB PO PRN ×2 (04:07→22:18)
[2020-10-12] MEDS: CEFTAZIDIME PENTAHYDRATE 1 GM/VIAL IVP SCH ×2 (04:58→16:10)
[2020-10-12] MEDS: LEVOTHYROXINE 50 MCG TABLET PO SCH (06:16)
[2020-10-12 06:42] LABS: HEMATOCRIT 23.6 % (36-48); MEAN CORPUSCULAR HEMOGLOBIN 29.1 pg (27.0-33.0); MEAN CORPUSCULAR HGB CONC 31.4 g/dL (32.0-36.0); MEAN CORPUSCULAR VOLUME 92.9 fL (79-99); PLATELET COUNT (AUTO) 36 K/uL (130-400); RED BLOOD CELL COUNT(AUTO) 2.54 MIL/uL (4.00-5.50); RED CELL DISTRIBUTION WIDTH 17.2 % (11.0-15.5); WHITE BLOOD COUNT (AUTO) 6.4 K/uL (4.8-10.8)
[2020-10-12 06:53] LABS: CREATININE 4.1 mg/dL (0.5-1.5); POTASSIUM 5.5 mmol/L (3.5-5.1)
[2020-10-12 08:03] LABS: EOSINOPHILS % (MANUAL) 6 % (1-6); LYMPHOCYTES % (MANUAL) 14 % (22-44); MAN.DIFF COMMENT-IMPRESSION MANUAL DIFFERENTIAL; MONOCYTES % (MANUAL) 6 % (2-9); SEGMENTED NEUTROPHILS % 74 % (40-70)
[2020-10-12 08:04] VITALS: BP 117/43
[2020-10-12 08:04] LABS: PLATELET MORPHOLOGY COMMENT MARKED DECREASE
[2020-10-12] MEDS: SODIUM POLYSTYRENE SULFONATE 15 GM/60 ML ML PO SCH ×2 (08:30→08:31)
[2020-10-12] MEDS: CALCIUM 600 + VITAMIN D 400 TABLET PO SCH ×2 (08:30→16:10)
[2020-10-12] MEDS: FISH OIL 1000 MG/CAP PO SCH ×2 (08:31→21:25)
[2020-10-12] MEDS: FERROUS SULFATE 325 MG TABLET.DR PO SCH (08:31)
[2020-10-12] MEDS: MAGNESIUM OXIDE 400 MG TABLET PO SCH (08:31)
[2020-10-12] MEDS: METOPROLOL TARTRATE 50 MG TAB PO SCH (08:31)
[2020-10-12] MEDS: FLUTICASONE/VILANTEROL 1 EACH BLST.W.DEV IH SCH ×2 (08:31→21:25)
[2020-10-12] MEDS: FOLIC ACID 1 MG TABLET PO SCH (08:31)
[2020-10-12] MEDS: BUSPIRONE HCL 5 MG TABLET PO SCH ×2 (08:31→21:25)
[2020-10-12] MEDS: PANTOPRAZOLE 40 MG/VIAL IVP SCH (08:31)
[2020-10-12] MEDS: INSULIN HUMULIN R 100 UNIT/ML 3ML SQ SCH (08:33)
[2020-10-12] MEDS: SODIUM ZIRCONIUM CYCLOSILICATE 10 GM POWD.PACK PO NR (08:35)
[2020-10-12] MEDS: DIPHENHYDRAMINE HCL 2% 30 GM CREAM.GM. TP SCH ×2 (08:35→21:00)
[2020-10-12 10:43] VITALS: BP 102/55
[2020-10-12] MEDS: FLUCONAZOLE 200 MG/NS 100 ML 100 ML IV SCH (13:02)
[2020-10-12] MEDS ORDERED: SODIUM POLYSTYRENE SULFONATE 15 GM/60 ML ML PO SCH (15:45)
[2020-10-12 16:20] VITALS: BP 107/65
[2020-10-12 20:00] VITALS: BP 97/44
[2020-10-12] MEDS: ATORVASTATIN CALCIUM 10 MG TABLET PO SCH (21:25)
[2020-10-12] MEDS: MONTELUKAST SODIUM 10 MG TAB PO SCH (21:25)
[2020-10-12 23:10] VITALS: BP 98/55
[2020-10-13 03:22] VITALS: BP 112/59
[2020-10-13] MEDS: CEFTAZIDIME PENTAHYDRATE 1 GM/VIAL IVP SCH ×2 (04:49→17:19)
[2020-10-13] MEDS: LEVOTHYROXINE 50 MCG TABLET PO SCH (05:35)
[2020-10-13 06:05] LABS: BASOPHILS % (AUTO) 0.6 % (0.0-5.0); EOSINOPHILS % (AUTO) 6.3 % (0.0-8.0); HEMATOCRIT 21.8 % (36-48); LYMPHOCYTES % (AUTO) 9.2 % (21.0-51.0); MEAN CORPUSCULAR HEMOGLOBIN 29.7 pg (27.0-33.0); MEAN CORPUSCULAR HGB CONC 32.1 g/dL (32.0-36.0); MEAN CORPUSCULAR VOLUME 92.4 fL (79-99); MONOCYTES % (AUTO) 8.9 % (3.0-13.0); NEUTROPHILS % (AUTO) 74.5 % (40.0-77.0); PLATELET COUNT (AUTO) 54 K/uL (130-400); RED BLOOD CELL COUNT(AUTO) 2.36 MIL/uL (4.00-5.50); WHITE BLOOD COUNT (AUTO) 6.6 K/uL (4.8-10.8)
[2020-10-13 06:26] LABS: CREATININE 4.3 mg/dL (0.5-1.5); POTASSIUM 5.6 mmol/L (3.5-5.1)
[2020-10-13 07:10] LABS: HEMATOCRIT 21.9 % (36-48)
[2020-10-13 08:00] VITALS: BP 166/45
[2020-10-13] MEDS: INSULIN HUMULIN R 100 UNIT/ML 3ML SQ SCH (08:30)
[2020-10-13] MEDS: FLUTICASONE/VILANTEROL 1 EACH BLST.W.DEV IH SCH ×2 (09:00→22:39)
[2020-10-13] MEDS: FERROUS SULFATE 325 MG TABLET.DR PO SCH (09:27)
[2020-10-13] MEDS: METOPROLOL TARTRATE 50 MG TAB PO SCH (09:27)
[2020-10-13] MEDS: FOLIC ACID 1 MG TABLET PO SCH (09:28)
[2020-10-13] MEDS: PANTOPRAZOLE 40 MG/VIAL IVP SCH (09:28)
[2020-10-13] MEDS: CALCIUM 600 + VITAMIN D 400 TABLET PO SCH ×2 (09:28→17:18)
[2020-10-13] MEDS: MAGNESIUM OXIDE 400 MG TABLET PO SCH (09:28)
[2020-10-13] MEDS: BUSPIRONE HCL 5 MG TABLET PO SCH ×2 (09:28→22:35)
[2020-10-13] MEDS: FISH OIL 1000 MG/CAP PO SCH ×2 (09:28→22:36)
[2020-10-13] MEDS: DIPHENHYDRAMINE HCL 2% 30 GM CREAM.GM. TP SCH ×2 (10:17→22:38)
[2020-10-13] MEDS: SODIUM ZIRCONIUM CYCLOSILICATE 10 GM POWD.PACK PO NR (10:17)
[2020-10-13 11:23] VITALS: BP 107/60
[2020-10-13] MEDS: FLUCONAZOLE 200 MG/NS 100 ML 100 ML IV SCH (11:48)
[2020-10-13 16:31] VITALS: BP 106/54
[2020-10-13 20:00] VITALS: BP 111/51
[2020-10-13] MEDS: MONTELUKAST SODIUM 10 MG TAB PO SCH (22:36)
[2020-10-13] MEDS: ATORVASTATIN CALCIUM 10 MG TABLET PO SCH (22:36)
[2020-10-14] VITALS: BP 129/72
[2020-10-14 04:00] VITALS: BP 115/58
[2020-10-14 04:39] LABS: BASOPHILS % (AUTO) 0.5 % (0.0-5.0); EOSINOPHILS % (AUTO) 8.3 % (0.0-8.0); HEMATOCRIT 24.3 % (36-48); LYMPHOCYTES % (AUTO) 12.6 % (21.0-51.0); MEAN CORPUSCULAR HGB CONC 32.9 g/dL (32.0-36.0); MONOCYTES % (AUTO) 9.2 % (3.0-13.0); NEUTROPHILS % (AUTO) 68.9 % (40.0-77.0); PLATELET COUNT (AUTO) 83 K/uL (130-400); RED BLOOD CELL COUNT(AUTO) 2.67 MIL/uL (4.00-5.50); RED CELL DISTRIBUTION WIDTH 16.9 % (11.0-15.5); WHITE BLOOD COUNT (AUTO) 6.2 K/uL (4.8-10.8)
[2020-10-14 05:19] LABS: CREATININE 4.4 mg/dL (0.5-1.5); POTASSIUM 5.6 mmol/L (3.5-5.1)
[2020-10-14 05:39] LABS: INR 0.99 (0.85-1.15); PROTHROMBIN TIME 10.6 SEC (9.6-11.6)
[2020-10-14] MEDS: LEVOTHYROXINE 50 MCG TABLET PO SCH (06:18)
[2020-10-14] MEDS: CEFTAZIDIME PENTAHYDRATE 1 GM/VIAL IVP SCH ×2 (06:18→20:41)
[2020-10-14 08:00] VITALS: BP 113/66
[2020-10-14] MEDS: SODIUM ZIRCONIUM CYCLOSILICATE 10 GM POWD.PACK PO NR (08:00)
[2020-10-14] MEDS: INSULIN HUMULIN R 100 UNIT/ML 3ML SQ SCH (08:30)
[2020-10-14] MEDS: CALCIUM 600 + VITAMIN D 400 TABLET PO SCH ×2 (10:58→20:41)
[2020-10-14] MEDS: FERROUS SULFATE 325 MG TABLET.DR PO SCH (10:59)
[2020-10-14] MEDS: MAGNESIUM OXIDE 400 MG TABLET PO SCH (10:59)
[2020-10-14] MEDS: METOPROLOL TARTRATE 50 MG TAB PO SCH (10:59)
[2020-10-14] MEDS: FOLIC ACID 1 MG TABLET PO SCH (10:59)
[2020-10-14] MEDS: FISH OIL 1000 MG/CAP PO SCH ×2 (10:59→22:52)
[2020-10-14] MEDS: PANTOPRAZOLE 40 MG/VIAL IVP SCH (10:59)
[2020-10-14] MEDS: BUSPIRONE HCL 5 MG TABLET PO SCH ×2 (10:59→22:52)
[2020-10-14] MEDS: DIPHENHYDRAMINE HCL 2% 30 GM CREAM.GM. TP SCH ×2 (11:14→21:00)
[2020-10-14] MEDS: FLUTICASONE/VILANTEROL 1 EACH BLST.W.DEV IH SCH ×2 (11:14→23:01)
[2020-10-14 12:00] VITALS: BP 105/44
[2020-10-14] MEDS: FLUCONAZOLE 200 MG/NS 100 ML 100 ML IV SCH (14:22)
[2020-10-14] MEDS ORDERED: ACETAMINOPHEN-CODEINE 300/30MG TAB ONE (14:32)
[2020-10-14] MEDS: ACETAMINOPHEN-CODEINE 300/30MG TAB PO PRN (14:34)
[2020-10-14 16:03] VITALS: BP 117/66
[2020-10-14 20:00] VITALS: BP 113/54
[2020-10-14] MEDS: MONTELUKAST SODIUM 10 MG TAB PO SCH (22:52)
[2020-10-14] MEDS: EPOETIN ALFA-EPBX (ESRD) 10,000 UNIT/ML VIAL SQ SCH (22:52)
[2020-10-14] MEDS: ATORVASTATIN CALCIUM 10 MG TABLET PO SCH (22:52)
[2020-10-15] VITALS: BP 102/49
[2020-10-15 04:00] VITALS: BP 134/73
[2020-10-15] MEDS: CEFTAZIDIME PENTAHYDRATE 1 GM/VIAL IVP SCH ×2 (04:55→18:29)
[2020-10-15 05:21] LABS: BASOPHILS % (AUTO) 0.5 % (0.0-5.0); EOSINOPHILS % (AUTO) 7.2 % (0.0-8.0); HEMATOCRIT 23.7 % (36-48); LYMPHOCYTES % (AUTO) 12.2 % (21.0-51.0); MEAN CORPUSCULAR HEMOGLOBIN 29.1 pg (27.0-33.0); MEAN CORPUSCULAR HGB CONC 32.1 g/dL (32.0-36.0); MEAN CORPUSCULAR VOLUME 90.8 fL (79-99); MONOCYTES % (AUTO) 8.9 % (3.0-13.0); NEUTROPHILS % (AUTO) 70.3 % (40.0-77.0); PLATELET COUNT (AUTO) 112 K/uL (130-400); RED BLOOD CELL COUNT(AUTO) 2.61 MIL/uL (4.00-5.50); WHITE BLOOD COUNT (AUTO) 7.5 K/uL (4.8-10.8)
[2020-10-15 05:39] LABS: CREATININE 4.5 mg/dL (0.5-1.5); POTASSIUM 5.7 mmol/L (3.5-5.1)
[2020-10-15] MEDS: LEVOTHYROXINE 50 MCG TABLET PO SCH (06:32)
[2020-10-15 08:00] VITALS: BP 100/61
[2020-10-15] MEDS: SODIUM ZIRCONIUM CYCLOSILICATE 10 GM POWD.PACK PO NR (08:00)
[2020-10-15] MEDS: INSULIN HUMULIN R 100 UNIT/ML 3ML SQ SCH (08:30)
[2020-10-15] MEDS: PANTOPRAZOLE 40 MG/VIAL IVP SCH (10:35)
[2020-10-15] MEDS: MAGNESIUM OXIDE 400 MG TABLET PO SCH (10:35)
[2020-10-15] MEDS: BUSPIRONE HCL 5 MG TABLET PO SCH ×2 (10:35→20:42)
[2020-10-15] MEDS: METOPROLOL TARTRATE 50 MG TAB PO SCH (10:35)
[2020-10-15] MEDS: FISH OIL 1000 MG/CAP PO SCH ×2 (10:35→20:42)
[2020-10-15] MEDS: FOLIC ACID 1 MG TABLET PO SCH (10:35)
[2020-10-15] MEDS: FERROUS SULFATE 325 MG TABLET.DR PO SCH (10:35)
[2020-10-15] MEDS: FLUTICASONE/VILANTEROL 1 EACH BLST.W.DEV IH SCH ×2 (10:36→20:43)
[2020-10-15] MEDS: DIPHENHYDRAMINE HCL 2% 30 GM CREAM.GM. TP SCH ×2 (10:36→20:50)
[2020-10-15] MEDS: CALCIUM 600 + VITAMIN D 400 TABLET PO SCH ×2 (10:39→18:29)
[2020-10-15 12:00] VITALS: BP 117/59
[2020-10-15] MEDS ORDERED: SODIUM POLYSTYRENE SULFONATE 15 GM/60 ML ML PO SCH (12:30)
[2020-10-15] MEDS: FLUCONAZOLE 200 MG/NS 100 ML 100 ML IV SCH (13:42)
[2020-10-15 16:00] VITALS: BP 105/62
[2020-10-15 20:00] VITALS: BP 109/50
[2020-10-15] MEDS: MONTELUKAST SODIUM 10 MG TAB PO SCH (20:42)
[2020-10-15] MEDS: ATORVASTATIN CALCIUM 10 MG TABLET PO SCH (20:42)
[2020-10-16] VITALS: BP 95/53
[2020-10-16 04:00] VITALS: BP 123/53
[2020-10-16] MEDS: CEFTAZIDIME PENTAHYDRATE 1 GM/VIAL IVP SCH ×2 (06:00→16:40)
[2020-10-16] MEDS: LEVOTHYROXINE 50 MCG TABLET PO SCH (06:00)
[2020-10-16 08:00] VITALS: BP 110/56
[2020-10-16] MEDS: SODIUM ZIRCONIUM CYCLOSILICATE 10 GM POWD.PACK PO NR (08:00)
[2020-10-16] MEDS: INSULIN HUMULIN R 100 UNIT/ML 3ML SQ SCH (08:30)
[2020-10-16] MEDS: MAGNESIUM OXIDE 400 MG TABLET PO SCH (11:38)
[2020-10-16] MEDS: FISH OIL 1000 MG/CAP PO SCH ×2 (11:38→21:39)
[2020-10-16] MEDS: PANTOPRAZOLE 40 MG/VIAL IVP SCH (11:38)
[2020-10-16] MEDS: BUSPIRONE HCL 5 MG TABLET PO SCH ×2 (11:38→21:39)
[2020-10-16] MEDS: METOPROLOL TARTRATE 50 MG TAB PO SCH (11:38)
[2020-10-16] MEDS: CALCIUM 600 + VITAMIN D 400 TABLET PO SCH ×2 (11:38→16:40)
[2020-10-16] MEDS: FERROUS SULFATE 325 MG TABLET.DR PO SCH (11:38)
[2020-10-16] MEDS: FOLIC ACID 1 MG TABLET PO SCH (11:39)
[2020-10-16] MEDS: DIPHENHYDRAMINE HCL 2% 30 GM CREAM.GM. TP SCH ×2 (11:40→21:00)
[2020-10-16] MEDS: FLUCONAZOLE 200 MG/NS 100 ML 100 ML IV SCH (11:47)
[2020-10-16] MEDS: FLUTICASONE/VILANTEROL 1 EACH BLST.W.DEV IH SCH ×2 (11:48→21:00)
[2020-10-16 12:00] VITALS: BP 118/48
[2020-10-16] MEDS ORDERED: SODIUM POLYSTYRENE SULFONATE 15 GM/60 ML ML PO SCH (12:30)
[2020-10-16 16:00] VITALS: BP 97/51
[2020-10-16 20:00] VITALS: BP 105/50
[2020-10-16] MEDS: ATORVASTATIN CALCIUM 10 MG TABLET PO SCH (21:38)
[2020-10-16] MEDS: MONTELUKAST SODIUM 10 MG TAB PO SCH (21:39)
[2020-10-17] VITALS (7 sets, daily range): BP systolic 104–157; BP diastolic 50–91
[2020-10-17] MEDS: CEFTAZIDIME PENTAHYDRATE 1 GM/VIAL IVP SCH ×3 (05:10→20:33)
[2020-10-17 05:32] LABS: HEMATOCRIT 24.5 % (36-48); MEAN CORPUSCULAR HEMOGLOBIN 29.4 pg (27.0-33.0); MEAN CORPUSCULAR HGB CONC 32.2 g/dL (32.0-36.0); MEAN CORPUSCULAR VOLUME 91.1 fL (79-99); NUCLEATED RED BLOOD CELLS 0.3 % (0.0-0.19); PLATELET COUNT (AUTO) 172 K/uL (130-400); RED BLOOD CELL COUNT(AUTO) 2.69 MIL/uL (4.00-5.50); RED CELL DISTRIBUTION WIDTH 17.2 % (11.0-15.5); WHITE BLOOD COUNT (AUTO) 6.6 K/uL (4.8-10.8)
[2020-10-17] MEDS: LEVOTHYROXINE 50 MCG TABLET PO SCH (06:00)
[2020-10-17 07:11] LABS: POTASSIUM 5.9 mmol/L (3.5-5.1)
[2020-10-17 08:18] LABS: EOSINOPHILS % (MANUAL) 4 % (1-6); LYMPHOCYTES % (MANUAL) 9 % (22-44); MONOCYTES % (MANUAL) 5 % (2-9); SEGMENTED NEUTROPHILS % 82 % (40-70)
[2020-10-17 08:19] LABS: MAN.DIFF COMMENT-IMPRESSION MANUAL DIFFERENTIAL; PLATELET MORPHOLOGY COMMENT ADEQUATE
[2020-10-17] MEDS: FERROUS SULFATE 325 MG TABLET.DR PO SCH (10:44)
[2020-10-17] MEDS: METOPROLOL TARTRATE 50 MG TAB PO SCH (10:44)
[2020-10-17] MEDS: MAGNESIUM OXIDE 400 MG TABLET PO SCH (10:44)
[2020-10-17] MEDS: BUSPIRONE HCL 5 MG TABLET PO SCH ×2 (10:44→20:32)
[2020-10-17] MEDS: CALCIUM 600 + VITAMIN D 400 TABLET PO SCH ×2 (10:44→18:02)
[2020-10-17] MEDS: PANTOPRAZOLE 40 MG/VIAL IVP SCH (10:44)
[2020-10-17] MEDS: FISH OIL 1000 MG/CAP PO SCH ×2 (10:44→20:33)
[2020-10-17] MEDS: FOLIC ACID 1 MG TABLET PO SCH (10:44)
[2020-10-17] MEDS: DIPHENHYDRAMINE HCL 2% 30 GM CREAM.GM. TP SCH ×2 (10:45→20:55)
[2020-10-17] MEDS: SODIUM ZIRCONIUM CYCLOSILICATE 10 GM POWD.PACK PO NR (10:45)
[2020-10-17] MEDS: FLUTICASONE/VILANTEROL 1 EACH BLST.W.DEV IH SCH ×2 (10:45→20:55)
[2020-10-17] MEDS: INSULIN HUMULIN R 100 UNIT/ML 3ML SQ SCH (10:45)
[2020-10-17] MEDS: ACETAMINOPHEN-CODEINE 300/30MG TAB PO PRN (14:41)
[2020-10-17] MEDS: MONTELUKAST SODIUM 10 MG TAB PO SCH (20:33)
[2020-10-17] MEDS: ATORVASTATIN CALCIUM 10 MG TABLET PO SCH (20:33)
[2020-10-18 04:13] VITALS: BP 141/65
[2020-10-18 04:59] LABS: BASOPHILS % (AUTO) 0.5 % (0.0-5.0); EOSINOPHILS % (AUTO) 5.5 % (0.0-8.0); HEMATOCRIT 24.9 % (36-48); LYMPHOCYTES % (AUTO) 10.4 % (21.0-51.0); MEAN CORPUSCULAR HEMOGLOBIN 29.2 pg (27.0-33.0); MEAN CORPUSCULAR HGB CONC 31.7 g/dL (32.0-36.0); MEAN CORPUSCULAR VOLUME 91.9 fL (79-99); MONOCYTES % (AUTO) 7.4 % (3.0-13.0); NEUTROPHILS % (AUTO) 75.2 % (40.0-77.0); NUCLEATED RED BLOOD CELLS 0.4 % (0.0-0.19); PLATELET COUNT (AUTO) 193 K/uL (130-400); RED BLOOD CELL COUNT(AUTO) 2.71 MIL/uL (4.00-5.50); RED CELL DISTRIBUTION WIDTH 17.3 % (11.0-15.5)
[2020-10-18 05:20] LABS: ALBUMIN 0.9 g/dL (3.5-5.0); BILIRUBIN,TOTAL 0.2 mg/dL (0.2-1.0); CREATININE 5.1 mg/dL (0.5-1.5); TOTAL PROTEIN, SERUM 4.3 g/dL (6.0-8.3)
[2020-10-18] MEDS: LEVOTHYROXINE 50 MCG TABLET PO SCH (05:38)
[2020-10-18 05:43] LABS: POTASSIUM 6.1 mmol/L (3.5-5.1)
[2020-10-18 07:22] VITALS: BP 116/57
[2020-10-18] MEDS ORDERED: HONEY 1 APPL/ML TUBE TP ONE (07:23)
[2020-10-18] MEDS: INSULIN HUMULIN R 100 UNIT/ML 3ML SQ SCH (08:30)
[2020-10-18] MEDS: SODIUM ZIRCONIUM CYCLOSILICATE 10 GM POWD.PACK PO NR (08:32)
[2020-10-18] MEDS: FERROUS SULFATE 325 MG TABLET.DR PO SCH (11:03)
[2020-10-18] MEDS: BUSPIRONE HCL 5 MG TABLET PO SCH ×2 (11:03→21:00)
[2020-10-18] MEDS: PANTOPRAZOLE 40 MG/VIAL IVP SCH (11:04)
[2020-10-18] MEDS: MAGNESIUM OXIDE 400 MG TABLET PO SCH (11:04)
[2020-10-18] MEDS: FISH OIL 1000 MG/CAP PO SCH (11:04)
[2020-10-18] MEDS: FOLIC ACID 1 MG TABLET PO SCH (11:04)
[2020-10-18] MEDS: FLUTICASONE/VILANTEROL 1 EACH BLST.W.DEV IH SCH (11:06)
[2020-10-18] MEDS: DIPHENHYDRAMINE HCL 2% 30 GM CREAM.GM. TP SCH ×2 (11:06→21:01)
[2020-10-18] MEDS: CALCIUM 600 + VITAMIN D 400 TABLET PO SCH (11:11)
[2020-10-18] MEDS: CEFTAZIDIME PENTAHYDRATE 1 GM/VIAL IVP SCH ×2 (11:16→21:00)
[2020-10-18 11:18] VITALS: BP 92/69
[2020-10-18 16:31] VITALS: BP 104/53
[2020-10-18 20:30] VITALS: BP 108/77
[2020-10-18] MEDS: ACETAMINOPHEN-CODEINE 300/30MG TAB PO PRN (21:00)
[2020-10-18 23:33] VITALS: BP 149/102
[2020-10-19 04:30] VITALS: BP 137/63
[2020-10-19] MEDS: INSULIN HUMULIN R 100 UNIT/ML 3ML SQ SCH (08:30)
[2020-10-19] MEDS: SODIUM ZIRCONIUM CYCLOSILICATE 10 GM POWD.PACK PO NR (08:56)
[2020-10-19 09:21] VITALS: BP 125/52
[2020-10-19] MEDS ORDERED: INSULIN HUMULIN R 100 UNIT/ML 3ML IV SCH (09:45)
[2020-10-19] MEDS ORDERED: DEXTROSE 50%-WATER 50 ML DISP.SYRIN IV SCH ×2 (09:45→19:15)
[2020-10-19] MEDS ORDERED: CALCIUM CHLORIDE 100 MG/ML 10 ML SYG IVP SCH ×2 (09:45→19:15)
[2020-10-19] MEDS: CEFTAZIDIME PENTAHYDRATE 1 GM/VIAL IVP SCH ×2 (10:59→20:22)
[2020-10-19] MEDS: BUSPIRONE HCL 5 MG TABLET PO SCH ×2 (10:59→20:22)
[2020-10-19] MEDS: LEVOTHYROXINE 50 MCG TABLET PO SCH ×2 (10:59→19:22)
[2020-10-19] MEDS: PANTOPRAZOLE 40 MG/VIAL IVP SCH (10:59)
[2020-10-19] MEDS: DIPHENHYDRAMINE HCL 2% 30 GM CREAM.GM. TP SCH ×2 (11:00→20:40)
[2020-10-19] MEDS: ACETAMINOPHEN-CODEINE 300/30MG TAB PO PRN (11:01)
[2020-10-19 11:16] LABS: BASOPHILS % (AUTO) 0.5 % (0.0-5.0); EOSINOPHILS % (AUTO) 3.2 % (0.0-8.0); HEMATOCRIT 23.2 % (36-48); MEAN CORPUSCULAR HEMOGLOBIN 29.4 pg (27.0-33.0); MEAN CORPUSCULAR HGB CONC 31.9 g/dL (32.0-36.0); MEAN CORPUSCULAR VOLUME 92.1 fL (79-99); MONOCYTES % (AUTO) 8.3 % (3.0-13.0); NEUTROPHILS % (AUTO) 75.2 % (40.0-77.0); NUCLEATED RED BLOOD CELLS 0.4 % (0.0-0.19); PLATELET COUNT (AUTO) 200 K/uL (130-400); RED BLOOD CELL COUNT(AUTO) 2.52 MIL/uL (4.00-5.50); WHITE BLOOD COUNT (AUTO) 7.6 K/uL (4.8-10.8)
[2020-10-19 11:26] LABS: ALBUMIN 0.8 g/dL (3.5-5.0); BILIRUBIN,TOTAL 0.2 mg/dL (0.2-1.0); CREATININE 5.4 mg/dL (0.5-1.5)
[2020-10-19 11:39] LABS: POTASSIUM 6.2 mmol/L (3.5-5.1)
[2020-10-19 14:24] VITALS: BP 93/55
[2020-10-19 16:31] VITALS: BP 105/60
[2020-10-19] MEDS ORDERED: SODIUM BICARB 50MEQ 50ML VIAL IV SCH (19:15)
[2020-10-19] MEDS ORDERED: INSULIN HUMULIN R 100 UNIT/ML 3ML SQ SCH (19:15)
[2020-10-19] MEDS ORDERED: ALBUTEROL SULFATE 0.083% 2.5 MG/3 ML INH IH SCH (19:15)
[2020-10-19] MEDS ORDERED: DEXTROSE 50%-WATER 50 ML DISP.SYRIN IV ONE (20:06)
[2020-10-19 20:08] VITALS: BP 105/53
[2020-10-20 00:04] VITALS: BP 98/52
[2020-10-20 04:04] VITALS: BP 138/70
[2020-10-20] MEDS ORDERED: DEXTROSE 50%-WATER 50 ML DISP.SYRIN IV ONE ×2 (05:29→21:51)
[2020-10-20 05:37] LABS: HEMATOCRIT 22.9 % (36-48); MEAN CORPUSCULAR HEMOGLOBIN 29.7 pg (27.0-33.0); MEAN CORPUSCULAR HGB CONC 31.9 g/dL (32.0-36.0); MEAN CORPUSCULAR VOLUME 93.1 fL (79-99); NUCLEATED RED BLOOD CELLS 0.3 % (0.0-0.19); PLATELET COUNT (AUTO) 204 K/uL (130-400); RED BLOOD CELL COUNT(AUTO) 2.46 MIL/uL (4.00-5.50); RED CELL DISTRIBUTION WIDTH 17.8 % (11.0-15.5); WHITE BLOOD COUNT (AUTO) 7.7 K/uL (4.8-10.8)
[2020-10-20 05:59] LABS: ALBUMIN 0.8 g/dL (3.5-5.0); BILIRUBIN,TOTAL 0.2 mg/dL (0.2-1.0); CREATININE 5.4 mg/dL (0.5-1.5); MAGNESIUM 3.9 mg/dL (1.80-2.40); PHOSPHORUS 4.1 mg/dL (2.5-4.9)
[2020-10-20 06:04] LABS: POTASSIUM 6.2 mmol/L (3.5-5.1)
[2020-10-20 06:57] LABS: BAND NEUTROPHILS % (MANUAL) 2 % (0-2); BASOPHILS % (MANUAL) 3 % (0-2); LYMPHOCYTES % (MANUAL) 5 % (22-44); MAN.DIFF COMMENT-IMPRESSION MANUAL DIFFERENTIAL; MONOCYTES % (MANUAL) 2 % (2-9); SEGMENTED NEUTROPHILS % 88 % (40-70)
[2020-10-20 06:58] LABS: PLATELET MORPHOLOGY COMMENT ADEQUATE
[2020-10-20] MEDS ORDERED: CALCIUM GLUCONATE 1 GM/10 ML VIAL IV SCH (07:00)
[2020-10-20] MEDS ORDERED: CALCIUM GLUCONATE 1 GM in SODIUM CHLORIDE 0.9% 100 ML IV SCH (07:15)
[2020-10-20] MEDS: DEXTROSE 50%-WATER 50 ML DISP.SYRIN IV SCH ×2 (08:19→11:40)
[2020-10-20] MEDS: BUSPIRONE HCL 5 MG TABLET PO SCH ×2 (08:20→21:54)
[2020-10-20] MEDS: PANTOPRAZOLE 40 MG/VIAL IVP SCH (08:20)
[2020-10-20] MEDS: CEFTAZIDIME PENTAHYDRATE 1 GM/VIAL IVP SCH ×2 (08:20→21:53)
[2020-10-20] MEDS: INSULIN HUMULIN R 100 UNIT/ML 3ML SQ SCH ×2 (08:21→08:44)
[2020-10-20] MEDS: DIPHENHYDRAMINE HCL 2% 30 GM CREAM.GM. TP SCH ×2 (08:21→21:00)
[2020-10-20 09:07] LABS: INR 1.1 (0.85-1.15); PROTHROMBIN TIME 11.7 SEC (9.6-11.6)
[2020-10-20 09:09] LABS: PARTIAL THROMBOPLASTIN TIME 31.3 SEC (26.3-35.5)
[2020-10-20] MEDS ORDERED: LIDOCAINE HCL 1% MDV 50ML VIAL ONE (09:20)
[2020-10-20 09:43] VITALS: BP 137/67
[2020-10-20] MEDS: SODIUM ZIRCONIUM CYCLOSILICATE 10 GM POWD.PACK PO NR (11:40)
[2020-10-20 13:49] VITALS: BP 118/77
[2020-10-20 19:19] VITALS: BP 120/82
[2020-10-20 20:03] LABS: HEMATOCRIT 21.3 % (36-48)
[2020-10-20 20:19] VITALS: BP 94/45
[2020-10-20 20:23] LABS: HEMOGLOBIN A1C 4.9 % (4.0-6.0)
[2020-10-20 20:27] LABS: ALBUMIN 0.8 g/dL (3.5-5.0); CREATININE 5.3 mg/dL (0.5-1.5)
[2020-10-21 00:42] VITALS: BP_SYST 146; BP_SYST 172; BP_DIAS 75; BP_DIAS 92
[2020-10-21 05:05] LABS: BASOPHILS % (AUTO) 0.6 % (0.0-5.0); EOSINOPHILS % (AUTO) 4.5 % (0.0-8.0); HEMATOCRIT 25.5 % (36-48); LYMPHOCYTES % (AUTO) 9.3 % (21.0-51.0); MEAN CORPUSCULAR HEMOGLOBIN 28.7 pg (27.0-33.0); MEAN CORPUSCULAR HGB CONC 31.4 g/dL (32.0-36.0); MEAN CORPUSCULAR VOLUME 91.4 fL (79-99); MONOCYTES % (AUTO) 6.1 % (3.0-13.0); NEUTROPHILS % (AUTO) 78.9 % (40.0-77.0); PLATELET COUNT (AUTO) 178 K/uL (130-400); RED BLOOD CELL COUNT(AUTO) 2.79 MIL/uL (4.00-5.50); RED CELL DISTRIBUTION WIDTH 18.3 % (11.0-15.5); WHITE BLOOD COUNT (AUTO) 8.4 K/uL (4.8-10.8)
[2020-10-21 05:25] LABS: ALBUMIN 0.8 g/dL (3.5-5.0); BILIRUBIN,TOTAL 0.2 mg/dL (0.2-1.0); CREATININE 4.6 mg/dL (0.5-1.5); POTASSIUM 5.4 mmol/L (3.5-5.1); TOTAL PROTEIN, SERUM 3.9 g/dL (6.0-8.3)
[2020-10-21] MEDS: INSULIN HUMULIN R 100 UNIT/ML 3ML SQ SCH ×2 (05:49→05:50)
[2020-10-21] MEDS: SODIUM ZIRCONIUM CYCLOSILICATE 10 GM POWD.PACK PO NR (05:50)
[2020-10-21 05:52] VITALS: BP 162/82
[2020-10-21] MEDS: LEVOTHYROXINE 50 MCG TABLET PO SCH (06:04)
[2020-10-21] MEDS: DIPHENHYDRAMINE HCL 2% 30 GM CREAM.GM. TP SCH ×2 (08:08→22:05)
[2020-10-21 09:58] VITALS: BP 150/70
[2020-10-21] MEDS: CEFTAZIDIME PENTAHYDRATE 1 GM/VIAL IVP SCH ×2 (10:22→22:04)
[2020-10-21] MEDS: BUSPIRONE HCL 5 MG TABLET PO SCH ×2 (10:22→22:05)
[2020-10-21] MEDS: PANTOPRAZOLE 40 MG/VIAL IVP SCH (10:22)
[2020-10-21 13:37] VITALS: BP 106/58
[2020-10-21 16:31] VITALS: BP 132/66
[2020-10-21] MEDS ORDERED: NYSTATIN 15 GM POWDER TP PRN (18:45)
[2020-10-21 20:00] VITALS: BP 103/68
[2020-10-21] MEDS: EPOETIN ALFA-EPBX (ESRD) 10,000 UNIT/ML VIAL SQ SCH (22:05)
[2020-10-21] MEDS: ACETAMINOPHEN-CODEINE 300/30MG TAB PO PRN (23:56)
[2020-10-22] VITALS: BP 176/104
[2020-10-22 04:00] VITALS: BP 136/61
[2020-10-22] MEDS: LEVOTHYROXINE 50 MCG TABLET PO SCH (06:01)
[2020-10-22 06:45] LABS: BASOPHILS % (AUTO) 0.4 % (0.0-5.0); EOSINOPHILS % (AUTO) 1.6 % (0.0-8.0); HEMATOCRIT 22.1 % (36-48); LYMPHOCYTES % (AUTO) 6.1 % (21.0-51.0); MEAN CORPUSCULAR HEMOGLOBIN 29.3 pg (27.0-33.0); MEAN CORPUSCULAR HGB CONC 32.1 g/dL (32.0-36.0); MEAN CORPUSCULAR VOLUME 91.3 fL (79-99); MONOCYTES % (AUTO) 6.1 % (3.0-13.0); NEUTROPHILS % (AUTO) 85.1 % (40.0-77.0); PLATELET COUNT (AUTO) 166 K/uL (130-400); RED BLOOD CELL COUNT(AUTO) 2.42 MIL/uL (4.00-5.50); RED CELL DISTRIBUTION WIDTH 18.6 % (11.0-15.5); WHITE BLOOD COUNT (AUTO) 13.6 K/uL (4.8-10.8)
[2020-10-22 07:03] LABS: ALBUMIN 0.7 g/dL (3.5-5.0); BILIRUBIN,TOTAL 0.1 mg/dL (0.2-1.0); CREATININE 3.8 mg/dL (0.5-1.5); POTASSIUM 4.9 mmol/L (3.5-5.1); TOTAL PROTEIN, SERUM 3.8 g/dL (6.0-8.3)
[2020-10-22 08:00] VITALS: BP_SYST 168; BP_SYST 94; BP_DIAS 56; BP_DIAS 90
[2020-10-22 08:18] LABS: MAGNESIUM 2.8 mg/dL (1.80-2.40); PHOSPHORUS 2.9 mg/dL (2.5-4.9)
[2020-10-22] MEDS: DIPHENHYDRAMINE HCL 2% 30 GM CREAM.GM. TP SCH ×2 (08:48→20:58)
[2020-10-22] MEDS: CEFTAZIDIME PENTAHYDRATE 1 GM/VIAL IVP SCH ×2 (09:09→21:30)
[2020-10-22] MEDS: BUSPIRONE HCL 5 MG TABLET PO SCH ×2 (09:09→20:56)
[2020-10-22] MEDS: PANTOPRAZOLE 40 MG/VIAL IVP SCH (09:09)
[2020-10-22 09:12] LABS: HEPATITIS Bs ANTIGEN SCREEN P Negative (Negative)
[2020-10-22 12:00] VITALS: BP 142/68
[2020-10-22 16:00] VITALS: BP 106/46
[2020-10-22] MEDS ORDERED: HEPARIN SODIUM 5000UNIT/ML 1ML VIAL ONE (17:19)
[2020-10-22] MEDS: ACETAMINOPHEN-CODEINE 300/30MG TAB PO PRN (20:57)
[2020-10-22] MEDS ORDERED: EPOETIN ALFA-EPBX (ESRD) 10,000 UNIT/ML VIAL SQ SCH (21:00)
[2020-10-22] MEDS ORDERED: MEROPENEM 1 GM VIAL ONE (21:27)
[2020-10-22] MEDS: EPOETIN ALFA-EPBX (ESRD) 10,000 UNIT/ML VIAL SQ SCH (21:34)
[2020-10-22 23:58] VITALS: BP 121/62
[2020-10-23 04:00] VITALS: BP 107/68
[2020-10-23] MEDS: LEVOTHYROXINE 50 MCG TABLET PO SCH (06:01)
[2020-10-23 06:22] LABS: BASOPHILS % (AUTO) 0.6 % (0.0-5.0); EOSINOPHILS % (AUTO) 1.5 % (0.0-8.0); LYMPHOCYTES % (AUTO) 9.1 % (21.0-51.0); MEAN CORPUSCULAR HEMOGLOBIN 29.8 pg (27.0-33.0); MEAN CORPUSCULAR HGB CONC 32.7 g/dL (32.0-36.0); MEAN CORPUSCULAR VOLUME 90.9 fL (79-99); MONOCYTES % (AUTO) 7.1 % (3.0-13.0); NEUTROPHILS % (AUTO) 80.8 % (40.0-77.0); PLATELET COUNT (AUTO) 151 K/uL (130-400); RED BLOOD CELL COUNT(AUTO) 2.42 MIL/uL (4.00-5.50); RED CELL DISTRIBUTION WIDTH 18.3 % (11.0-15.5); WHITE BLOOD COUNT (AUTO) 9.9 K/uL (4.8-10.8)
[2020-10-23 06:56] LABS: ALBUMIN 0.8 g/dL (3.5-5.0); BILIRUBIN,TOTAL 0.2 mg/dL (0.2-1.0); CREATININE 2.9 mg/dL (0.5-1.5); TOTAL PROTEIN, SERUM 3.8 g/dL (6.0-8.3)
[2020-10-23] MEDS: PANTOPRAZOLE 40 MG/VIAL IVP SCH (09:00)
[2020-10-23] MEDS: DIPHENHYDRAMINE HCL 2% 30 GM CREAM.GM. TP SCH ×2 (09:00→20:41)
[2020-10-23] MEDS: CEFTAZIDIME PENTAHYDRATE 1 GM/VIAL IVP SCH ×2 (09:00→20:19)
[2020-10-23] MEDS: BUSPIRONE HCL 5 MG TABLET PO SCH ×2 (09:01→20:18)
[2020-10-23 12:00] VITALS: BP 127/46
[2020-10-23 16:00] VITALS: BP 106/66
[2020-10-23 20:26] VITALS: BP 127/59
[2020-10-23] MEDS: ACETAMINOPHEN-CODEINE 300/30MG TAB PO PRN (20:30)
[2020-10-23] MEDS ORDERED: HYDROMORPHONE HCL 2 MG/ML VIAL ONE (21:26)
[2020-10-23 23:22] VITALS: BP 118/49
[2020-10-24 04:07] VITALS: BP 105/54
[2020-10-24 05:33] LABS: BASOPHILS % (AUTO) 0.7 % (0.0-5.0); EOSINOPHILS % (AUTO) 2.5 % (0.0-8.0); HEMATOCRIT 22.8 % (36-48); LYMPHOCYTES % (AUTO) 9.9 % (21.0-51.0); MEAN CORPUSCULAR HEMOGLOBIN 29.1 pg (27.0-33.0); MEAN CORPUSCULAR VOLUME 90.8 fL (79-99); MONOCYTES % (AUTO) 7.9 % (3.0-13.0); PLATELET COUNT (AUTO) 166 K/uL (130-400); RED BLOOD CELL COUNT(AUTO) 2.51 MIL/uL (4.00-5.50); RED CELL DISTRIBUTION WIDTH 18.2 % (11.0-15.5); WHITE BLOOD COUNT (AUTO) 9.1 K/uL (4.8-10.8)
[2020-10-24] MEDS: LEVOTHYROXINE 50 MCG TABLET PO SCH (05:48)
[2020-10-24] MEDS: HYDROMORPHONE HCL 0.5 MG/0.5 ML ML IVP PRN ×3 (05:49→22:28)
[2020-10-24 06:00] LABS: ALBUMIN 0.8 g/dL (3.5-5.0); BILIRUBIN,TOTAL 0.2 mg/dL (0.2-1.0); CREATININE 3.3 mg/dL (0.5-1.5); POTASSIUM 4.1 mmol/L (3.5-5.1)
[2020-10-24 08:00] VITALS: BP 140/68
[2020-10-24] MEDS: DIPHENHYDRAMINE HCL 2% 30 GM CREAM.GM. TP SCH (09:00)
[2020-10-24] MEDS: BUSPIRONE HCL 5 MG TABLET PO SCH ×2 (09:16→21:40)
[2020-10-24] MEDS: PANTOPRAZOLE 40 MG/VIAL IVP SCH (09:16)
[2020-10-24] MEDS: CEFTAZIDIME PENTAHYDRATE 1 GM/VIAL IVP SCH ×2 (09:16→21:40)
[2020-10-24 11:00] VITALS: BP 124/65
[2020-10-24] MEDS ORDERED: ONDANSETRON HCL 4 MG/2 ML VIAL IVP PRN (12:45)
[2020-10-24 16:00] VITALS: BP 106/64
[2020-10-24] MEDS ORDERED: HEPARIN SODIUM 5000UNIT/ML 1ML VIAL SQ PRN (16:45)
[2020-10-24 20:36] VITALS: BP 98/57
[2020-10-25 00:19] VITALS: BP 101/70
[2020-10-25 04:07] VITALS: BP 144/54
[2020-10-25 04:35] LABS: HEMATOCRIT 21.7 % (36-48); MEAN CORPUSCULAR HEMOGLOBIN 29.4 pg (27.0-33.0); MEAN CORPUSCULAR HGB CONC 32.3 g/dL (32.0-36.0); MEAN CORPUSCULAR VOLUME 91.2 fL (79-99); RED BLOOD CELL COUNT(AUTO) 2.38 MIL/uL (4.00-5.50); RED CELL DISTRIBUTION WIDTH 18.2 % (11.0-15.5); WHITE BLOOD COUNT (AUTO) 7.7 K/uL (4.8-10.8)
[2020-10-25 05:02] LABS: CREATININE 2.5 mg/dL (0.5-1.5); POTASSIUM 3.9 mmol/L (3.5-5.1)
[2020-10-25] MEDS: LEVOTHYROXINE 50 MCG TABLET PO SCH (05:34)
[2020-10-25 08:00] VITALS: BP 90/49
[2020-10-25] MEDS: CEFTAZIDIME PENTAHYDRATE 1 GM/VIAL IVP SCH ×2 (08:08→21:56)
[2020-10-25] MEDS: BUSPIRONE HCL 5 MG TABLET PO SCH ×2 (08:09→21:56)
[2020-10-25 08:17] LABS: HEMATOCRIT 21.7 % (36-48)
[2020-10-25] MEDS ORDERED: HONEY 1 APPL/ML TUBE TP SCH (09:00)
[2020-10-25] MEDS: PANTOPRAZOLE 40 MG/VIAL IVP SCH (11:15)
[2020-10-25] MEDS: HYDROMORPHONE HCL 0.5 MG/0.5 ML ML IVP PRN ×2 (11:15→21:57)
[2020-10-25] MEDS: EPOETIN ALFA-EPBX (ESRD) 10,000 UNIT/ML VIAL SQ SCH (11:15)
[2020-10-25 11:32] VITALS: BP 100/58
[2020-10-25 16:00] VITALS: BP 92/56
[2020-10-25 19:55] VITALS: BP 117/64
== END 2020-10-26 02:10 | DRG 853 ==
LOC: EDH 20:33 → EDHIP 23:17 → 3AH 09-10 16:19 → 3CH 09-12 20:19 → 4CH 10-08 11:39 → 3DH 10-17 18:36
PROVIDERS: ADMIT Family Medicine; ATTEND Family Medicine
PROC: 30233N1 Transfusion of Nonautologous Red Blood Cells into Peripheral Vein, Percutaneous Approach (ICD-10-PCS; 2020-09-09)
PROC: 0DB98ZX Excision of Duodenum, Via Natural or Artificial Opening Endoscopic, Diagnostic (ICD-10-PCS; 2020-09-14)
PROC: 0DB68ZX Excision of Stomach, Via Natural or Artificial Opening Endoscopic, Diagnostic (ICD-10-PCS; 2020-09-14)
PROC: 0JCN0ZZ Extirpation of Matter from Right Lower Leg Subcutaneous Tissue and Fascia, Open Approach (ICD-10-PCS; 2020-09-15)
PROC: 0KBR0ZZ Excision of Left Upper Leg Muscle, Open Approach (ICD-10-PCS; principal; 2020-09-15 15:20)
PROC: 0KBS0ZZ Excision of Right Lower Leg Muscle, Open Approach (ICD-10-PCS; 2020-09-15 15:20)
PROC: 02HV33Z Insertion of Infusion Device into Superior Vena Cava, Percutaneous Approach (ICD-10-PCS; 2020-09-16)
PROC: B548ZZA Ultrasonography of Superior Vena Cava, Guidance (ICD-10-PCS; 2020-09-16)
PROC: 0KBT0ZZ Excision of Left Lower Leg Muscle, Open Approach (ICD-10-PCS; 2020-09-20)
PROC: 0KBS0ZZ Excision of Right Lower Leg Muscle, Open Approach (ICD-10-PCS; 2020-09-20)
PROC: 0KUS0KZ Supplement Right Lower Leg Muscle with Nonautologous Tissue Substitute, Open Approach (ICD-10-PCS; 2020-09-20)
PROC: 5A1D70Z Performance of Urinary Filtration, Intermittent, Less than 6 Hours Per Day (ICD-10-PCS; 2020-09-23)
PROC: 5A1D70Z Performance of Urinary Filtration, Intermittent, Less than 6 Hours Per Day (ICD-10-PCS; 2020-10-20)
PROC: 0JH63XZ Insertion of Tunneled Vascular Access Device into Chest Subcutaneous Tissue and Fascia, Percutaneous Approach (ICD-10-PCS; 2020-10-20)
PROC: 02H633Z Insertion of Infusion Device into Right Atrium, Percutaneous Approach (ICD-10-PCS; 2020-10-20)
PROC: B548ZZA Ultrasonography of Superior Vena Cava, Guidance (ICD-10-PCS; 2020-10-20)
PROC: 5A1D70Z Performance of Urinary Filtration, Intermittent, Less than 6 Hours Per Day (ICD-10-PCS; 2020-10-21)
PROC: 5A1D70Z Performance of Urinary Filtration, Intermittent, Less than 6 Hours Per Day (ICD-10-PCS; 2020-10-22)
PROC: 5A1D70Z Performance of Urinary Filtration, Intermittent, Less than 6 Hours Per Day (ICD-10-PCS; 2020-10-24)
DX: A41.9 Sepsis, unspecified organism (principal); R53.2 Functional quadriplegia; E43 Unspecified severe protein-calorie malnutrition; K29.61 Other gastritis with bleeding; N18.6 End stage renal disease; L97.419 Non-pressure chronic ulcer of right heel and midfoot with unspecified severity; L03.115 Cellulitis of right lower limb; L03.116 Cellulitis of left lower limb; N39.0 Urinary tract infection, site not specified; N17.9 Acute kidney failure, unspecified; L97.929 Non-pressure chronic ulcer of unspecified part of left lower leg with unspecified severity; D62 Acute posthemorrhagic anemia; T81.41XA Infection following a procedure, superficial incisional surgical site, initial encounter; I12.0 Hypertensive chronic kidney disease with stage 5 chronic kidney disease or end stage renal disease; T81.30XA Disruption of wound, unspecified, initial encounter; E11.52 Type 2 diabetes mellitus with diabetic peripheral angiopathy with gangrene; I42.9 Cardiomyopathy, unspecified; E87.1 Hypo-osmolality and hyponatremia; G93.40 Encephalopathy, unspecified; D69.6 Thrombocytopenia, unspecified; E66.01 Morbid (severe) obesity due to excess calories; D63.8 Anemia in other chronic diseases classified elsewhere; D50.9 Iron deficiency anemia, unspecified; K31.9 Disease of stomach and duodenum, unspecified; E11.22 Type 2 diabetes mellitus with diabetic chronic kidney disease; D63.1 Anemia in chronic kidney disease; Z20.822 Contact with and (suspected) exposure to COVID-19; E78.5 Hyperlipidemia, unspecified; S90.31XA Contusion of right foot, initial encounter; R23.8 Other skin changes; R53.81 Other malaise; E03.9 Hypothyroidism, unspecified; E87.5 Hyperkalemia; J44.9 Chronic obstructive pulmonary disease, unspecified; S80.821A Blister (nonthermal), right lower leg, initial encounter; X58.XXXA Exposure to other specified factors, initial encounter; E11.621 Type 2 diabetes mellitus with foot ulcer; K64.9 Unspecified hemorrhoids; L89.619 Pressure ulcer of right heel, unspecified stage; S50.821A Blister (nonthermal) of right forearm, initial encounter; S80.11XA Contusion of right lower leg, initial encounter; Z85.038 Personal history of other malignant neoplasm of large intestine; Z74.01 Bed confinement status; Z68.35 Body mass index [BMI] 35.0-35.9, adult; Z82.5 Family history of asthma and other chronic lower respiratory diseases; Z90.49 Acquired absence of other specified parts of digestive tract; Z82.61 Family history of arthritis; Z84.89 Family history of other specified conditions; Z91.81 History of falling; Y93.89 Activity, other specified; Y92.89 Other specified places as the place of occurrence of the external cause; Y99.8 Other external cause status; Z99.2 Dependence on renal dialysis; Z91.15 Patient's noncompliance with renal dialysis; Z86.73 Personal history of transient ischemic attack (TIA), and cerebral infarction without residual deficits; Z85.42 Personal history of malignant neoplasm of other parts of uterus; Z83.3 Family history of diabetes mellitus; Z82.49 Family history of ischemic heart disease and other diseases of the circulatory system
CPT/HCPCS: 36415; 36430; 36558; 43239; 71045; 73590; 73700; 77001; 80048; 80053; 80061; 80076; 80202; 81001; 82040; 82248; 82270; 82330; 82550; 82565; 82570; 82607; 82728; 82746; 82948; 83036; 83540; 83550; 83605; 83735; 84100; 84132; 84145; 84156; 84439; 84443; 84481; 84484; 84520; 84550; 85014; 85018; 85025; 85027; 85610; 85730; 86701; 86704; 86706; 86850; 86900; 86901; 86923; 87040; 87070; 87076; 87077; 87088; 87186; 87205; 87340; 87390; 87426; 87520; 88305; 88342; 90935; 93005; 93970; 93971; 94644; 97039; A6266; C1750; C1894; C9113; G0378; J0171; J0330; J0610; J0692; J0713; J1100; J1170; J1450; J1610; J1644; J1815; J1940; J2001; J2020; J2175; J2185; J2250; J2310; J2405; J2704; J2710; J2997; J3010; J3370; J3490; J7030; J7040; J7050; J7070; J7120; P9016; P9046; U0003